=== PATIENT | female | born 1995 | race Hispanic/Latino ===

== ENCOUNTER 2018-09-03 06:56 | Emergency (ER) | payer OTHER ==
[2018-09-03] MEDS ORDERED: MAGNE/ALUM HYDROXD 30 ML UCUP ONE (07:24)
[2018-09-03] MEDS ORDERED: ONDANSETRON 4 MG/2 ML VIAL ONE (07:24)
[2018-09-03] MEDS ORDERED: NA CHLORIDE 0.9% 1,000 ML ONE (07:24)
[2018-09-03] MEDS ORDERED: LIDOCAINE VISCOUS 2% SOLN 15 ML UDC ONE (07:25)
[2018-09-03] MEDS ORDERED: FAMOTIDINE 20 MG/2 ML VIAL IV ONE (07:25)
[2018-09-03 07:36] LABS: Absolute Lymphocytes (CBC) 1.7 K/uL (0.7-4.9); Absolute Monocytes 1.2 K/uL (0.1-1.3); Absolute Neutrophil 13.2 K/uL (1.8-8.0); Basophils % 0.1 % (0-1.3); Eosinophils % 0.2 % (0-4.4); Hematocrit 38.1 % (36.0-45.0); Lymphocytes % 10.3 % (15.3-44.8); MPV 8.1 fL (7.6-11.3); Monocytes % 7.4 % (3.3-12.3); RBC Red Blood Cell Count 4.99 M/uL (3.86-4.86)
[2018-09-03 07:53] LABS: ALT/SGPT 17 U/L (12-78); AST/SGOT 11 U/L (15-37); Albumin 3.6 g/dL (3.4-5.0); Alkaline Phosphatase 45 U/L (45-117); BUN Blood Urea Nitrogen 6 mg/dL (7-18); Bicarbonate 21 mmol/L (21-32); Bilirubin Direct < 0.1 mg/dL (0-0.2); Bilirubin Total 0.2 mg/dL (0.2-1.0); Glucose Level 103 mg/dL (74-106); Lipase 140 U/L (73-393); Potassium 3.8 mmol/L (3.5-5.1); Sodium Level 139 mmol/L (136-145)
[2018-09-03 08:32] LABS: Urine Bacteria 20-50 /HPF (<20); Urine Culture Reflex Order NOT NEEDED; Urine RBC <5 /HPF (NONE SEEN)
[2018-09-03 08:37] LABS: Urine Blood NEGATIVE (NEG); Urine Glucose NEGATIVE (NEG); Urine Protein 2+ (NEG); Urine Specific Gravity 1.025 (1.005-1.030); Urine pH 8.5 (5.0-7.0)
--- NOTE | 2018-09-03 08:47 | RAD REPORT ---
EXAM DESCRIPTION: US - OB Limited - 09/03/2018 7:42 am CLINICAL HISTORY: with abdominal pain COMPARISON: None. FINDINGS: The uterus measures 11 x 8 x 7 centimeters. A gestational sac is present within the endom etrium. Within this is a pole with a crown-rump length 4.4 centimeters. Cardiac activity 162 b eats per minute Ovaries are normal in size and echotexture. 2 centimeter left ovarian cyst. An adnexal mass is not no riccardo. No significant free fluid is seen. IMPRESSION: Single live intrauterine with an estimated gestational age 11 weeks 1 day ANA MARIA 03/24/2019
--- NOTE | 2018-09-03 08:57 | EDPHYS ---
Physician Documentation [facility] Name: Polina Beasley Age: 23 yrs Sex: Female : 1995 Arrival Date: 09/03/2018 Time: 06:58 Bed 19 Private MD: ED Physician Guillermo Mcdonald HPI: 09/03 07:13 This 23 yrs old Female presents to ER via Ambulatory with complaints of rn Abdominal Pain - 11 Weeks Preg, Vomiting. 07:13 The patient presents to the emergency department with nausea, vomiting, diarrhea, rn abdominal pain, of the epigastric area and suprapubic area. Onset: The symptoms/episode began/occurred this morning. Possible causes: unknown. The symptoms are aggravated by nothing. The symptoms are alleviated by nothing. Severity of symptoms: At their worst the symptoms were moderate in the emergency department the symptoms are unchanged. The patient has not experienced similar symptoms in the past. The patient has not recently seen a physician. Reports has been having very frequent vomiting during this , has prescribed medication, phenergan, by her OB, reports this morning onset of upper abd pain, assoc with mild diarrhea today, intermittent pain, no fever, no hematemesis. Also has history of GERD.. Historical: - Allergies: 07:10 No Known Allergies; ss - Home Meds: 07:10 None [Active]; ss - PMHx: 07:10 gestational diabetes; GERD; ss - PSHx: 07:10 None; ss - Immunization history:: Adult Immunizations up to date. - Social history:: Smoking status: Patient/guardian denies using tobacco. - Ebola Screening: : Patient denies exposure to infectious person Patient denies travel to an Ebola-affected area in the 21 days before illness onset. - Family history:: not pertinent. - Hospitalizations: : No recent hospitalization is reported. ROS: 07:13 Constitutional: Negative for fever, chills, and weight loss, Eyes: Negative for injury, rn pain, redness, and discharge, Neck: Negative for injury, pain, and swelling, Cardiovascular: Negative for chest pain, palpitations, and edema, Respiratory: Negative for shortness of breath, cough, wheezing, and pleuritic chest pain, Abdomen/GI: + abd pain/nausea/vomiting/diarrhea : Negative for injury, bleeding, discharge, and swelling, MS/Extremity: Negative for injury and deformity, Skin: Negative for injury, rash, and discoloration, Neuro: Negative for headache, weakness, numbness, tingling, and seizure. Exam: 07:13 Constitutional: This is a well developed, well nourished patient who is awake, alert, rn tearful and hyperventilating Head/Face: Normocephalic, atraumatic. Eyes: Pupils equal round and reactive to light, extra-ocular motions intact. Lids and lashes normal. Conjunctiva and sclera are non-icteric and not injected. Cornea within normal limits. Periorbital areas with no swelling, redness, or edema. ENT: dry MM Abdomen/GI: soft, + mild tenderness epigastric and suprapubic regions, no rebound, no peritoneal signs. Neg armas. Skin: Warm, dry MS/ Extremity: Pulses equal, no cyanosis. Neurovascular intact. Full, normal range of motion. Equal circumference. Neuro: Awake and alert, GCS 15, oriented to person, place, time, and situation Vital Signs: 07:10 BP 108 / 75; Pulse 122; Resp 26; Temp 97.7(O); Pulse Ox 100% on R/A; Weight 67.13 kg; ss Height 5 ft. 6 in. (167.64 cm); Pain 10/10; 08:55 BP 101 / 68; Pulse 95; Resp 14 S; Pulse Ox 99% on R/A; Pain 4/10; jl7 07:10 Body Mass Index 23.89 (67.13 kg, 167.64 cm) ss MDM: 07:02 Patient medically screened. kb 08:10 Differential diagnosis: Nonspecific abd pain, gastritis, cholecystitis, pancreatitis, rn viral gastroenteritis, gastroenteritis. Data reviewed: vital signs, nurses notes, lab test result(s), radiologic studies, ultrasound. Response to treatment: the patient's symptoms have markedly improved after treatment. 08:56 Counseling: I had a detailed discussion with the patient and/or guardian regarding: the rn historical points, exam findings, and any diagnostic results supporting the discharge/admit diagnosis, lab results, radiology results, the need for outpatient follow up, to return to the emergency department if symptoms worsen or persist or if there are any questions or concerns that arise at home. Special discussion: I discussed with the patient/guardian in detail that at this point there is no indication for admission to the hospital. It is understood, however, that if the symptoms persist or worsen the patient needs to return immediately for re-evaluation. Based on the history and exam findings, there is no indication for further emergent testing or inpatient evaluation. I discussed with the patient/guardian the need to see the OB Gyne specialist for further evaluation of the symptoms. ED course: Recommended diet modification and OB f/u. . 09/03 07:07 Order name: Basic Metabolic Panel; Complete Time: 07:59 rn 09/03 07:07 Order name: CBC with Diff; Complete Time: 07:49 rn 09/03 07:07 Order name: Hepatic Function; Complete Time: 07:59 rn 09/03 07:07 Order name: Lipase; Complete Time: 07:59 rn 09/03 07:09 Order name: Urine Microscopic Only; Complete Time: 08:47 rn 09/03 07:24 Order name: HCG-Quantitative; Complete Time: 08:47 rn 09/03 07:07 Order name: US OB Limited; Complete Time: 08:58 rn 09/03 07:07 Order name: US Abdomen Limited rn 09/03 08:13 Order name: Urine Dipstick--Ancillary (enter results); Complete Time: 08:47 bd 09/03 08:13 Order name: Urine --Ancillary (enter results); Complete Time: 08:47 bd 09/03 07:07 Order name: IV Saline Lock; Complete Time: 07:26 rn 09/03 07:07 Order name: Labs collected and sent; Complete Time: 07:26 rn 09/03 07:09 Order name: Urine Dipstick-Ancillary (obtain specimen); Complete Time: 08:02 rn Administered Medications: 07:20 Drug: GI Cocktail without - (Maalox Suspension 30 ml, Lidocaine Liquid 2 % 15 jl7 ml) Route: PO; 08:08 Follow up: Response: No adverse reaction; Pain is decreased jl7 07:22 Drug: NS 0.9% 1000 ml Route: IV; Rate: 1000 ml; Site: right antecubital; jl7 08:30 Follow up: IV Status: Completed infusion; IV Intake: 1000ml jl7 07:23 Drug: Pepcid 20 mg Route: IVP; Site: right antecubital; jl7 08:08 Follow up: Response: No adverse reaction; Pain is decreased jl7 07:25 Drug: Zofran 4 mg Route: IVP; Site: right antecubital; jl7 08:08 Follow up: Response: No adverse reaction; Nausea is decreased jl7 Disposition: 09/03/18 08:56 Discharged to Home. Impression: Gastritis, unspecified, Urinary tract infection, site not specified. - Condition is Stable. - Discharge Instructions: Gastritis, Adult, and Urinary Tract Infection. - Prescriptions for Macrobid 100 mg Oral Capsule - take 1 capsule by ORAL route every 12 hours for 7 days; 14 capsule. - Medication Reconciliation Form, Thank You Letter, Antibiotic Education, Prescription Opioid Use form. - Follow up: Private Physician; When: As needed; Reason: Recheck today's complaints, Re-evaluation by your physician. - Problem is new. - Symptoms have improved. Signatures: Dispatcher [employer] EDMS Shivani Pedersen, [employer] SAW OPERATOR-C SEMICOND[employer]CTOR WAFERS SAW OPERATOR-Ckb Guillermo Mcdonald MD MD rn Smirch, Shelby, RN RN ss Leal, Jahala, RN RN jl7 Corrections: (The following items were deleted from the chart) 07:14 07:13 Reports has been having very frequent vomiting during this , has rn prescribed medication, phenergan, by her OB, reports this morning onset of upper abd pain, assoc with mild diarrhea today, intermittent pain, no fever, no hematemesis. . rn 09:04 08:56 09/03/2018 08:56 Discharged to Home. Impression: Gastritis, unspecified; Urinary jl7 tract infection, site not specified. Condition is Stable. Forms are Medication Reconciliation Form, Thank You Letter, Antibiotic Education, Prescription Opioid Use. Follow up: Private Physician; When: As needed; Reason: Recheck today's complaints, Re-evaluation by your physician. Problem is new. Symptoms have improved. rn
--- NOTE | 2018-09-03 08:57 | ER ---
Nurse's Notes [facility] Name: Polina Beasley Age: 23 yrs Sex: Female : 1995 Arrival Date: 09/03/2018 Time: 06:58 Bed 19 Private MD: Diagnosis: Gastritis, unspecified;Urinary tract infection, site not specified Presentation: 09/03 07:00 Presenting complaint: Patient states: epigastric discomfort with nausea and vomiting ss that began at 0300 this morning. Denies fever, diarrhea and/or vaginal bleeding. Pt states that she is 11 weeks . Transition of care: patient was not received from another setting of care. Onset of symptoms was September 03, 2018. Risk Assessment: Do you want to hurt yourself or someone else? Patient reports no desire to harm self or others. Initial Sepsis Screen: Does the patient meet any 2 criteria? RR > 20 per min. HR > 90 bpm. Does the patient have a suspected source of infection? No. Patient's initial sepsis screen is negative. Care prior to arrival: None. 07:00 Method Of Arrival: Ambulatory ss 07:00 Acuity: LARRY 2 ss Historical: - Allergies: 07:10 No Known Allergies; ss - Home Meds: 07:10 None [Active]; ss - PMHx: 07:10 gestational diabetes; GERD; ss - PSHx: 07:10 None; ss - Immunization history:: Adult Immunizations up to date. - Social history:: Smoking status: Patient/guardian denies using tobacco. - Ebola Screening: : Patient denies exposure to infectious person Patient denies travel to an Ebola-affected area in the 21 days before illness onset. - Family history:: not pertinent. - Hospitalizations: : No recent hospitalization is reported. Screenin:16 Abuse screen: Denies threats or abuse. Denies injuries from another. Nutritional ss screening: No deficits noted. Tuberculosis screening: No symptoms or risk factors identified. Never had TB. Fall Risk None identified. Assessment: 07:28 General: Appears in no apparent distress. uncomfortable, Behavior is cooperative, jl7 anxious. Pain: Complains of pain in epigastric area Pain does not radiate. Pain currently is 10 out of 10 on a pain scale. Quality of pain is described as sharp, Pain began 4 hours ago. Is intermittent. Neuro: Level of Consciousness is awake, alert, obeys commands, Oriented to person, place, time, situation. Cardiovascular: Patient's skin is warm and dry. Respiratory: Airway is patent Respiratory effort is even, unlabored, Respiratory pattern is regular, symmetrical. GI: Bowel sounds present X 4 quads. Abd is soft Abdomen is tender to palpation. : No signs and/or symptoms were reported regarding the genitourinary system. EENT: No signs and/or symptoms were reported regarding the EENT system. Derm: Skin is pink, warm \T\ dry. Musculoskeletal: No signs and/or symptoms reported regarding the musculoskeletal system. 08:30 Reassessment: Patient appears in no apparent distress at this time. Patient and/or jl7 family updated on plan of care and expected duration. Pain level reassessed. Patient is alert, oriented x 3, equal unlabored respirations, skin warm/dry/pink. Patient states feeling better. Patient states symptoms have improved. Vital Signs: 07:10 BP 108 / 75; Pulse 122; Resp 26; Temp 97.7(O); Pulse Ox 100% on R/A; Weight 67.13 kg; ss Height 5 ft. 6 in. (167.64 cm); Pain 10/10; 08:55 BP 101 / 68; Pulse 95; Resp 14 S; Pulse Ox 99% on R/A; Pain 4/10; jl7 07:10 Body Mass Index 23.89 (67.13 kg, 167.64 cm) ED Course: 06:58 Patient arrived in ED. as 07:02 Shivani Pedersen [facility]-C [facility] kb 07:02 Elliott Whitt MD is Attending Physician. kb 07:06 Attending Physician role handed off by Elliott Whitt MD rn 07:06 Guillermo Mcdonald MD is Attending Physician. rn 07:08 Alen Gunter RN is Primary Nurse. jl7 07:09 Triage completed. ss 07:10 Arm band placed on right wrist. ss 07:16 Patient has correct armband on for positive identification. Bed in low position. Call ss light in reach. 07:16 Patient maintains SpO2 saturation greater than 95% on room air. ss 07:28 Initial lab(s) drawn, by me, sent to lab. Inserted saline lock: 20 gauge in right jl7 antecubital area, using aseptic technique. Blood collected. 07:43 US OB Limited In Process Unspecified. EDMS 07:43 US Abdomen Limited In Process Unspecified. EDMS 07:45 Ultrasound completed. Patient tolerated well. aa4 09:03 No provider procedures requiring assistance completed. IV discontinued, intact, jl7 bleeding controlled, No redness/swelling at site. Pressure dressing applied. Administered Medications: 07:20 Drug: GI Cocktail without - (Maalox Suspension 30 ml, Lidocaine Liquid 2 % 15 jl7 ml) Route: PO; 08:08 Follow up: Response: No adverse reaction; Pain is decreased jl7 07:22 Drug: NS 0.9% 1000 ml Route: IV; Rate: 1000 ml; Site: right antecubital; jl7 08:30 Follow up: IV Status: Completed infusion; IV Intake: 1000ml jl7 07:23 Drug: Pepcid 20 mg Route: IVP; Site: right antecubital; jl7 08:08 Follow up: Response: No adverse reaction; Pain is decreased jl7 07:25 Drug: Zofran 4 mg Route: IVP; Site: right antecubital; jl7 08:08 Follow up: Response: No adverse reaction; Nausea is decreased jl7 Intake: 08:30 IV: 1000ml; Total: 1000ml. jl7 Outcome: 08:56 Discharge ordered by . rn 09:03 Discharged to home ambulatory. jl7 09:03 Condition: stable 09:03 Discharge instructions given to patient, family, Instructed on discharge instructions, follow up and referral plans. medication usage, Demonstrated understanding of instructions, follow-up care, medications, Prescriptions given X 1. 09:04 Patient left the ED. jl7 Signatures: Dispatcher [employer] EDMN Shivani Pedersen, BAL POPE-Patricai Rice Amanda aa4 Guillermo Mcdonald MD MD rn Smirch, Shelby, RN RN ss Leal, Jahala, RN RN jl7
--- NOTE | 2018-09-03 09:02 | RAD REPORT ---
EXAM DESCRIPTION: US - Abdomen Exam Limited - 09/03/2018 7:42 am CLINICAL HISTORY: Abdominal pain. COMPARISON: None. FINDINGS: The gallbladder wall is not thickened. A gallstone is not seen. The biliary tree is normal caliber. IMPRESSION: Unremarkable gallbladder ultrasound.
== END 2018-09-03 09:04 | disposition home or self-care (01) ==
LOC: ER 06:56
DX: O26.891 Other specified pregnancy related conditions, first trimester (principal); K29.70 Gastritis, unspecified, without bleeding; O23.41 Unspecified infection of urinary tract in pregnancy, first trimester; K21.9 Gastro-esophageal reflux disease without esophagitis; O24.419 Gestational diabetes mellitus in pregnancy, unspecified control; Z3A.11 11 weeks gestation of pregnancy
CPT/HCPCS: 36415; 76705; 76815; 80048; 80076; 81003; 81015; 81025; 83690; 84702; 85025; 96361; 96374; 96375; 99284; J2405; J7030

== ENCOUNTER 2018-11-15 03:17 | Emergency (ER) | payer OTHER ==
--- OUTSIDE RECORDS SUMMARY | 2018-11-15 03:19 | XMS REPORT ---
:1995 [facility] [address] [place] [address] Care Team Providers Name Role Phone Unavailable Unavailable Unavailable Problems This patient has no known problems. Allergies, Adverse Reactions, Alerts This patient has no known allergies or adverse reactions. Medications This patient has no known medications.
[2018-11-15 04:11] LABS: Absolute Lymphocytes (CBC) 2.2 K/uL (0.7-4.9); Absolute Monocytes 0.9 K/uL (0.1-1.3); Absolute Neutrophil 7.2 K/uL (1.8-8.0); Basophils % 0.7 % (0-1.3); Eosinophils % 0.5 % (0-4.4); Hematocrit 29.9 % (36.0-45.0); Lymphocytes % 21.1 % (15.3-44.8); MPV 8.2 fL (7.6-11.3); Monocytes % 8.8 % (3.3-12.3); RBC Red Blood Cell Count 3.86 M/uL (3.86-4.86)
[2018-11-15 04:17] LABS: Protime INR 0.91
[2018-11-15] MEDS ORDERED: ACETAMINOPHEN 325 MG TABLET ONE (04:24)
[2018-11-15] MEDS ORDERED: NA CHLORIDE 0.9% 1,000 ML ONE ×2 (04:24→06:38)
[2018-11-15 04:26] LABS: Urine Blood NEGATIVE (NEG); Urine Glucose NEGATIVE (NEG); Urine Protein NEGATIVE (NEG); Urine Specific Gravity 1.025 (1.005-1.030)
[2018-11-15 04:45] LABS: ALT/SGPT 37 U/L (12-78); AST/SGOT 22 U/L (15-37); Albumin 2.8 g/dL (3.4-5.0); Alkaline Phosphatase 52 U/L (45-117); BUN Blood Urea Nitrogen 6 mg/dL (7-18); Bicarbonate 21 mmol/L (21-32); Bilirubin Direct < 0.1 mg/dL (0-0.2); Bilirubin Total 0.1 mg/dL (0.2-1.0); Glucose Level 98 mg/dL (74-106); HCG, Quantitative 16608 mIU/mL (1-3); Lipase 266 U/L (73-393); Magnesium 1.8 mg/dL (1.8-2.4); NT PRO-BNP 18 pg/mL (<125); Potassium 3.6 mmol/L (3.5-5.1); Protein, Total 6.8 g/dL (6.4-8.2); Sodium Level 140 mmol/L (136-145); Troponin (Emerg Dept Use Only) < 0.02 ng/mL (0.0-0.045)
[2018-11-15 05:03] LABS: Arterial Blood Carboxyhemoglob 1.1 % (0-1.5); Blood Gas Oxyhemoglobin 96.1 % (94-97); Blood O2 Saturation 97.8 % (92-98.5)
--- NOTE | 2018-11-15 06:52 | EDPHYS ---
Physician Documentation [facility] Name: Polina Beasley Age: 23 yrs Sex: Female : 1995 Arrival Date: 11/15/2018 Time: 03:18 Bed 8 Private MD: ED Physician Elliott Whitt HPI: 11/15 04:46 This 23 yrs old Female presents to ER via Wheelchair with complaints of tulio Shortness Of Breath, Dizziness, 21 wks . 04:46 The patient has shortness of breath at rest, with light activity. Onset: The tulio symptoms/episode began/occurred just prior to arrival. Duration: The symptoms are continuous, but are steadily getting better. The patient's shortness of breath has no apparent modifying factors. Associated signs and symptoms: Pertinent positives: chest pain, dizziness. Severity of symptoms: At their worst the symptoms were mild. The patient has not experienced similar symptoms in the past. 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 - Social history:: Smoking status: Patient/guardian denies using tobacco. - Ebola Screening: : Patient negative for fever greater than or equal to 101.5 degrees Fahrenheit, and additional compatible Ebola Virus Disease symptoms Patient denies exposure to infectious person Patient denies travel to an Ebola-affected area in the 21 days before illness onset No symptoms or risks identified at this time. - Family history:: not pertinent. ROS: 04:46 Constitutional: Negative for fever, chills, and weight loss, Eyes: Negative for injury, tulio pain, redness, and discharge, ENT: Negative for injury, pain, and discharge, Neck: Negative for injury, pain, and swelling, Abdomen/GI: Negative for abdominal pain, nausea, vomiting, diarrhea, and constipation, Back: Negative for injury and pain, : Negative for injury, bleeding, discharge, and swelling, MS/Extremity: Negative for injury and deformity, Skin: Negative for injury, rash, and discoloration, Neuro: Negative for headache, weakness, numbness, tingling, and seizure, Psych: Negative for depression, anxiety, suicide ideation, homicidal ideation, and hallucinations, Allergy/Immunology: Negative for hives, rash, and allergies, Endocrine: Negative for neck swelling, polydipsia, polyuria, polyphagia, and marked weight changes, Hematologic/Lymphatic: Negative for swollen nodes, abnormal bleeding, and unusual bruising. 04:46 Cardiovascular: Positive for chest pain. 04:46 Respiratory: Positive for shortness of breath. 04:46 Abdomen/GI: Positive for abdominal distension. Exam: 04:48 Constitutional: This is a well developed, well nourished patient who is awake, alert, tulio and in no acute distress. Head/Face: Normocephalic, atraumatic. Eyes: Pupils equal round and reactive to light, extra-ocular motions intact. Lids and lashes normal. Conjunctiva and sclera are non-icteric and not injected. Cornea within normal limits. Periorbital areas with no swelling, redness, or edema. ENT: Nares patent. No nasal discharge, no septal abnormalities noted. Tympanic membranes are normal and external auditory canals are clear. Oropharynx with no redness, swelling, or masses, exudates, or evidence of obstruction, uvula midline. Mucous membranes moist. Neck: Trachea midline, no thyromegaly or masses palpated, and no cervical lymphadenopathy. Supple, full range of motion without nuchal rigidity, or vertebral point tenderness. No Meningismus. Chest/axilla: Normal chest wall appearance and motion. Nontender with no deformity. No lesions are appreciated. Cardiovascular: Regular rate and rhythm with a normal S1 and S2. No gallops, murmurs, or rubs. Normal PMI, no JVD. No pulse deficits. Respiratory: Lungs have equal breath sounds bilaterally, clear to auscultation and percussion. No rales, rhonchi or wheezes noted. No increased work of breathing, no retractions or nasal flaring. Back: No spinal tenderness. No costovertebral tenderness. Full range of motion. Skin: Warm, dry with normal turgor. Normal color with no rashes, no lesions, and no evidence of cellulitis. MS/ Extremity: Pulses equal, no cyanosis. Neurovascular intact. Full, normal range of motion. Neuro: Awake and alert, GCS 15, oriented to person, place, time, and situation. Cranial nerves II-XII grossly intact. Motor strength 5/5 in all extremities. Sensory grossly intact. Cerebellar exam normal. Normal gait. Psych: Awake, alert, with orientation to person, place and time. Behavior, mood, and affect are within normal limits. 04:48 Abdomen/GI: Inspection: gravid appearance, is noted, Bowel sounds: normal, Palpation: nontender, Liver: no appreciated palpable abnormalities, Hernia: not appreciated. 04:50 Musculoskeletal/extremity: DVT Exam: No signs of deep vein thrombosis. no pain, no tulio swelling, no tenderness, negative Homans' sign noted on exam, no appreciated bluish discoloration, no erythema, no increased warmth. Vital Signs: 03:35 BP 107 / 75; Pulse 108; Resp 21; Temp 98.1(O); Pulse Ox 100% on R/A; Weight 69.85 kg; ed1 Height 5 ft. 6 in. (167.64 cm); Pain 0/10; 04:40 BP 116 / 79; Pulse 97; Resp 20; Temp 97.3(O); Pulse Ox 100% on R/A; Pain 0/10; ed1 06:23 BP 117 / 89; Pulse 112; Resp 21; Pulse Ox 99% on R/A; Pain 0/10; ed1 03:35 Body Mass Index 24.86 (69.85 kg, 167.64 cm) ed1 MDM: 03:32 Patient medically screened. [facility] 04:49 Data reviewed: vital signs, nurses notes, lab test result(s), EKG, radiologic studies, [facility] CT scan, plain films. 11/15 03:35 Order name: Basic Metabolic Panel [facility] 11/15 03:35 Order name: CBC with Diff 11/15 03:35 Order name: LFT's 11/15 03:35 Order name: Magnesium [facility] 11/15 03:35 Order name: NT PRO-BNP 11/15 03:35 Order name: PT-INR [facility] 11/15 03:35 Order name: Troponin (emerg Dept Use Only) 11/15 03:35 Order name: Lipase [facility] 11/15 03:35 Order name: Quantitative Hcg [facility] 11/15 03:35 Order name: Urine Culture [facility] 11/15 03:35 Order name: Abo/rh Typing; Complete Time: 04:44 [facility] 11/15 03:35 Order name: D-Dimer; Complete Time: 04:44 [facility] 11/15 03:35 Order name: Basic Metabolic Panel; Complete Time: 04:46 [facility] 11/15 03:35 Order name: CBC with Automated Diff; Complete Time: 04:44 [facility] 11/15 03:35 Order name: XRAY Chest (1 view) [facility] 11/15 03:36 Order name: Liver (Hepatic) Function; Complete Time: 04:46 [facility] 11/15 03:36 Order name: Magnesium; Complete Time: 04:46 [facility] 11/15 03:36 Order name: NT PRO-BNP; Complete Time: 04:46 [facility] 11/15 03:36 Order name: Protime (+INR); Complete Time: 04:44 [facility] 11/15 03:36 Order name: Troponin (Emerg Dept Use Only); Complete Time: 04:46 [facility] 11/15 03:36 Order name: Lipase; Complete Time: 04:46 [facility] 11/15 03:36 Order name: HCG, Quantitative; Complete Time: 04:46 [facility] 11/15 03:46 Order name: Urine Dipstick--Ancillary (enter results); Complete Time: 04:44 ed 11/15 03:46 Order name: Urine --Ancillary (enter results); Complete Time: 04:44 ed 11/15 04:46 Order name: ABG; Complete Time: 05:38 [facility] 11/15 04:46 Order name: CT Chest For PE Angio [facility] 11/15 05:57 Order name: US OB Limited 11/15 03:35 Order name: EKG; Complete Time: 03:37 [facility] 11/15 03:35 Order name: Cardiac monitoring; Complete Time: 04:15 [facility] 11/15 03:35 Order name: EKG - Nurse/Tech; Complete Time: 04:15 [facility] 11/15 03:35 Order name: IV Saline Lock; Complete Time: 04:16 [facility] 11/15 03:35 Order name: Labs collected and sent; Complete Time: 04:16 [facility] 11/15 03:35 Order name: O2 Per Protocol; Complete Time: 03:45 [facility] 11/15 03:35 Order name: O2 Sat Monitoring; Complete Time: 03:45 [facility] 11/15 03:35 Order name: FHT's; Complete Time: 04:15 [facility] 11/15 03:35 Order name: Urine Dipstick-Ancillary (obtain specimen); Complete Time: 03:45 [facility] Administered Medications: 04:15 Drug: NS 0.9% 1000 ml Route: IV; Rate: 1 bolus; Site: right forearm; ed1 06:31 Drug: NS 0.9% 500 ml Route: IV; Rate: bolus; Site: right forearm; ed1 06:57 Follow up: IV Status: Completed infusion; IV Intake: 500ml ed1 06:57 Not Given (Physician Discretion): NS 0.9% 1000 ml IV at 125 ml/hr continuous ed1 Disposition: 11/15/18 06:51 Discharged to Home. Impression: Chest pain on breathing, Other chest pain, Dyspnea, related conditions, unspecified, second trimester, Anemia, unspecified. - Condition is Stable. - Discharge Instructions: Abdominal Pain During , Nonspecific Chest Pain, Chest Wall Pain, Shortness of Breath, Shortness of Breath, Vqrd-[id number], Nonspecific Chest Pain, Zmkw-uk-Sjsx, Second Trimester of , Qkmr-tg-Tiib. - Prescriptions for Vitamin 27- 0.8 mg Oral Tablet - take 1 tablet by ORAL route once daily; 30 tablet. - Medication Reconciliation Form, Thank You Letter, Antibiotic Education, Prescription Opioid Use, Family Work Release form. - Follow up: Private Physician; When: 2 - 3 days; Reason: Recheck today's complaints, Continuance of care, Re-evaluation by your physician. - Problem is new. - Symptoms have improved. Signatures: Dispatcher [employer] EDAZ Elliott Whitt MD MD cha Riggs, Erika, RN RN ed1 Sherry Otero RN RN hb Corrections: (The following items were deleted from the chart) 07:57 06:51 11/15/2018 06:51 Discharged to Home. Impression: Chest pain on breathing; Other hb chest pain; Dyspnea; related conditions, unspecified, second trimester; Anemia, unspecified. Condition is Stable. Discharge Instructions: Abdominal Pain During , Nonspecific Chest Pain, Chest Wall Pain, Shortness of Breath, Shortness of Breath, Sgnc-yg-Muzr, Nonspecific Chest Pain, Pynq-lt-Uxch. Forms are Medication Reconciliation Form, Thank You Letter, Antibiotic Education, Prescription Opioid Use. Follow up: Private Physician; When: 2 - 3 days; Reason: Recheck today's complaints, Continuance of care, Re-evaluation by your physician. Problem is new. Symptoms have improved. tulio
--- NOTE | 2018-11-15 06:52 | ER ---
Nurse's Notes [facility] Name: Polina Beasley Age: 23 yrs Sex: Female : 1995 Arrival Date: 11/15/2018 Time: 03:18 Bed 8 Private MD: Diagnosis: Chest pain on breathing;Other chest pain;Dyspnea; related conditions, unspecified, second trimester;Anemia, unspecified Presentation: 11/15 03:33 Presenting complaint: Patient states: I took a shower and when I got out I got very ed1 dizzy and lightheaded. I had numbness of my hands and feet. Transition of care: patient was not received from another setting of care. Onset of symptoms was November 15, 2018. Risk Assessment: Do you want to hurt yourself or someone else? Patient reports no desire to harm self or others. Initial Sepsis Screen: Does the patient meet any 2 criteria? No. Patient's initial sepsis screen is negative. Does the patient have a suspected source of infection? No. Patient's initial sepsis screen is negative. Care prior to arrival: None. 03:33 Method Of Arrival: Wheelchair ed1 03:33 Acuity: LARRY 3 ed1 Triage Assessment: 03:35 General: Appears in no apparent distress. Behavior is calm, cooperative. Pain: Denies ed1 pain. EENT: Oral mucosa is moist. Neuro: Level of Consciousness is awake, alert, obeys commands, Oriented to person, place, time, situation, [employer] L[employer] Grader are equal bilaterally Moves all extremities. Full function Gait is steady, Speech is normal, Facial symmetry appears normal, Pupils are PERRLA, Numbness in right hand, left hand, right foot and left foot Reports blurred vision dizziness. Cardiovascular: Denies chest pain, Heart tones S1 S2 present. Respiratory: Reports shortness of breath at rest Airway is patent Respiratory effort is even, unlabored, Respiratory pattern is regular, symmetrical, Breath sounds are clear bilaterally. Onset: The symptoms/episode began/occurred just prior to arrival, the patient has mild shortness of breath. GI: Bowel sounds present X 4 quads. Patient currently denies diarrhea, nausea, vomiting. : Denies burning with urination. Derm: Skin is intact, is healthy with good turgor, Skin is dry, Skin is normal, Skin temperature is warm. Musculoskeletal: Circulation, motion, and sensation intact. Range of motion: intact in all extremities. 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 - Social history:: Smoking status: Patient/guardian denies using tobacco. - Ebola Screening: : Patient negative for fever greater than or equal to 101.5 degrees Fahrenheit, and additional compatible Ebola Virus Disease symptoms Patient denies exposure to infectious person Patient denies travel to an Ebola-affected area in the 21 days before illness onset No symptoms or risks identified at this time. - Family history:: not pertinent. Screenin:40 Abuse screen: Denies threats or abuse. Denies injuries from another. Nutritional ed1 screening: No deficits noted. Tuberculosis screening: No symptoms or risk factors identified. Fall Risk None identified. Assessment: 03:39 General: See triage assessment. Cardiovascular: Rhythm is regular. ed1 04:40 Reassessment: Patient appears in no apparent distress at this time. Patient and/or ed1 family updated on plan of care and expected duration. Pain level reassessed. Patient is alert, oriented x 3, equal unlabored respirations, skin warm/dry/pink. Patient denies pain at this time. Patient states feeling better. Patient states symptoms have improved. Respiratory: Airway is patent Respiratory effort is even, unlabored, Respiratory pattern is regular, symmetrical, Breath sounds are clear bilaterally. 06:23 Reassessment: Patient appears in no apparent distress at this time. No changes from ed1 previously documented assessment. Patient and/or family updated on plan of care and expected duration. Pain level reassessed. Patient is alert, oriented x 3, equal unlabored respirations, skin warm/dry/pink. Patient denies pain at this time. Patient states feeling better. Patient states symptoms have improved. 07:15 Reassessment: Patient appears in no apparent distress at this time. Patient and/or hb family updated on plan of care and expected duration. Pain level reassessed. Patient is alert, oriented x 3, equal unlabored respirations, skin warm/dry/pink. Vital Signs: 03:35 BP 107 / 75; Pulse 108; Resp 21; Temp 98.1(O); Pulse Ox 100% on R/A; Weight 69.85 kg; ed1 Height 5 ft. 6 in. (167.64 cm); Pain 0/10; 04:40 BP 116 / 79; Pulse 97; Resp 20; Temp 97.3(O); Pulse Ox 100% on R/A; Pain 0/10; ed1 06:23 BP 117 / 89; Pulse 112; Resp 21; Pulse Ox 99% on R/A; Pain 0/10; ed1 03:35 Body Mass Index 24.86 (69.85 kg, 167.64 cm) ed1 Vitals: 04:14 Heart Tones 162. ed1 ED Course: 03:18 Patient arrived in ED. am2 03:32 Elliott Whitt MD is Attending Physician. tulio 03:34 Triage completed. ed1 03:35 Arm band placed on. ed1 03:40 Patient has correct armband on for positive identification. Bed in low position. Call ed1 light in reach. Adult w/ patient. Pulse ox on. NIBP on. 03:54 X-ray completed. Portable x-ray completed in exam room. Patient tolerated procedure kw well. 03:55 XRAY Chest (1 view) In Process Unspecified. EDMS 04:14 Lesli De La Cruz RN is Primary Nurse. ed1 04:14 Initial lab(s) drawn, by ky, sent to lab. Urine collected: clean catch specimen, clear, ed1 EKG done, by ED staff, reviewed by Elliott Whitt MD. Inserted saline lock: 20 gauge in right forearm, using aseptic technique. Blood collected. 04:24 Notified ED physician of a critical lab result(s). D-Dimer 1003. Dr Whitt notified. bb 05:53 CT completed. Patient tolerated procedure well. Patient moved to CT via stretcher. Patient moved back from CT. 05:58 CT Chest For PE Angio In Process Unspecified. EDMS 06:23 Awaiting: Ultrasound. ed1 06:52 US OB Limited In Process Unspecified. EDMS 06:58 Primary Nurse role handed off by Lesli De La Cruz, RN ed1 07:00 Report received from RAMBO Ballesteros pending US results at this time PRIOR to discharge. tw2 07:07 Patito Garzon, RN is Primary Nurse. tw2 07:55 No provider procedures requiring assistance completed. IV discontinued, intact, hb bleeding controlled, No redness/swelling at site. Pressure dressing applied. Administered Medications: 04:15 Drug: NS 0.9% 1000 ml Route: IV; Rate: 1 bolus; Site: right forearm; ed1 06:31 Drug: NS 0.9% 500 ml Route: IV; Rate: bolus; Site: right forearm; ed1 06:57 Follow up: IV Status: Completed infusion; IV Intake: 500ml ed1 06:57 Not Given (Physician Discretion): NS 0.9% 1000 ml IV at 125 ml/hr continuous ed1 Intake: 06:57 IV: 500ml; Total: 500ml. ed1 Outcome: 06:51 Discharge ordered by . [facility] 07:55 Discharged to home ambulatory, with family. hb 07:55 Condition: stable 07:55 Discharge instructions given to patient, Instructed on discharge instructions, follow up and referral plans. medication usage, Demonstrated understanding of instructions, follow-up care, medications, Prescriptions given X 1. 07:57 Patient left the ED. hb Signatures: Dispatcher [employer] EDMS Elliott Whitt MD MD cha Hagler, Ervin eh Ballard, Brenda RN RAMBO Lesli De La Cruz RN RN ed1 Jenna Vyas Heather, RN RN Patito Garzon RN RN tw2 Keri Euceda [facility]
--- NOTE | 2018-11-15 08:20 | RAD REPORT ---
EXAM DESCRIPTION: RAD - Chest Single View - 11/15/2018 3:57 am CLINICAL HISTORY: DYSPNEA Chest pain. COMPARISON: Chest For Pe Angio dated 11/15/2018 FINDINGS: Portable technique limits examination quality. The lungs are grossly clear. The heart is normal in size. No displaced fractures. IMPRESSION: No acute intrathoracic process suspected.
--- NOTE | 2018-11-15 08:26 | EKG ---
Test Date: 2018-11-15 Test Time: 04:04:15 [employer] Vice President: THUY MEASUREMENT RESULTS: Intervals: Rate: 101 WA: 152 QRSD: 88 QT: 334 QTc: 433 [place]: P: 44 WA: 152 QRS: 41 T: 52 INTERPRETIVE STATEMENTS: Sinus tachycardia Possible Left atrial enlargement Borderline ECG No previous ECG available for comparison Electronically Signed On 11-15-18 08:25:34 CDT by Joshua Jauregui
--- NOTE | 2018-11-15 08:27 | RAD REPORT ---
EXAM DESCRIPTION: US - OB Limited - 11/15/2018 6:52 am CLINICAL HISTORY: ABD CRAMPING, COMPARISON: OB Limited dated 09/03/2018 FINDINGS: A limited examination was requested by referring clinician. A single cephalic presenting gestation is identified. Heart rate normal. The estimated gestational age (EGA) is 22 weeks 4 days with an ANA MARIA of03/17/2019. The placenta is posterior grade 1 but appears fairly close to the cervical internal os, measuring 9 m m away from the internal os.
--- NOTE | 2018-11-18 14:16 | RAD REPORT ---
EXAM DESCRIPTION: CTA of the chest per PE protocol with contrast. CLINICAL HISTORY: Chest pain; Dyspnea COMPARISON: None Available. TECHNIQUE: CTA of the chest obtained following the uncomplicated intravenous administration of iodin ated contrast. 3-D/MIP reformatted images of the chest available for evaluation. DLP: 290 mGycm FINDINGS: Chest: Pulmonary arteries: Contrast bolus is adequate.No filling defects identified in the pulmonary arterie s to suggest pulmonary embolus. Respiratory motion artifact. Suboptimal evaluation of the segmental a nd subsegmental pulmonary arterial branches. Thyroid: No abnormalities of the visualized thyroid. Great Vessels: Great vessels have normal anatomic configuration. Thoracic Aorta: No abnormalities of the thoracic aorta identified. Heart: No cardiomegaly, significant pericardial effusion, or coronary artery atherosclerosis Lymph Nodes: No enlarged mediastinal lymph nodes identified. Esophagus: No abnormalities of the esophagus identified. Other: No additional findings. Lungs: No airspace opacities identified. Pleura: No pleural effusion or pneumothorax. Trachea/Airways: No abnormalities of the visualized trachea or airways. Bones: No destructive osseous lesions. Upper Abdomen: Limited images of the upper abdomen demonstrate no definite abnormalities of visualize d portions of the liver and spleen. IMPRESSION: 1. No definite pulmonary embolus identified. Suboptimal evaluation of the segmental and subsegmental pulmonary arterial branches due to respiratory motion artifact. This exam was performed according to our departmental dose-optimization program, which includes autom ated exposure control, adjustment of the mA and/or kV according to patient size and/or use of iterati ve reconstruction technique. Electronically signed by: Zak Dela Cruz 11/15/2018 6:16 AM CDT Due to temporary technical issues with the PACS/Fluency reporting system, reports are being signed by the in house radiologist as a courtesy to ensure prompt reporting. The interpreting radiologist is f ully responsible for the content of the report.
== END 2018-11-15 07:57 | disposition home or self-care (01) ==
LOC: ER 03:17
DX: O99.012 Anemia complicating pregnancy, second trimester (principal); D64.9 Anemia, unspecified; O24.419 Gestational diabetes mellitus in pregnancy, unspecified control; R07.1 Chest pain on breathing; R07.89 Other chest pain; R06.00 Dyspnea, unspecified; Z3A.21 21 weeks gestation of pregnancy
CPT/HCPCS: 36415; 71045; 71275; 76815; 80048; 80076; 81003; 81025; 82805; 83690; 83735; 83880; 84484; 84702; 85025; 85379; 85610; 86900; 86901; 87086; 87088; 93005; J7030; Q9967

== ENCOUNTER 2019-06-11 22:03 | Emergency (ER) | payer OTHER, SELFPAY ==
--- OUTSIDE RECORDS SUMMARY | 2019-06-11 22:05 | XMS REPORT ---
:1995 Author Organization [facility] Address [address] [place] [address] Care Team Providers Name Role Phone Unavailable Unavailable Unavailable Problems This patient has no known problems. Allergies, Adverse Reactions, Alerts This patient has no known allergies or adverse reactions. Medications This patient has no known medications.
--- OUTSIDE RECORDS SUMMARY | 2019-06-11 22:05 | XMS REPORT | Summary of Care ---
:1995 Author Organization [facility] - [address] [address] Care Team Providers Name Role Phone Joe Hagen MD Consulting Physician Dianne Marshall [facility] Primary Care Provider Reason for Visit Reason Comments LAB Encounter Details Date Type Department Care Team Description 02/04/2019 Telephone [facility] Women's EliceoBreonna MD LAB Healthcare-[address] [place], [place] [id number] [place] [address] [place] [address] Allergies No Known Allergiesdocumented as of this encounter (statuses as of 02/04/2019) Medications Medication Sig Dispensed Refills Start Date End Date Status blood sugar diagnostic Use as directed 1 Box 10 08/13/2018 Active (FREESTYLE LITE STRIPS) stripIndications: Diet controlled gestational diabetes mellitus (GDM), antepartum lancets 17 gauge Use as directed 1 Each 10 08/13/2018 Active MiscIndications: Diet controlled gestational diabetes mellitus (GDM), antepartum vit Take 1 Packet by 30 Each 6 08/13/2018 Active 66-wrtb-zodrt-dha mouth daily. (SELECT-OB + DHA) 29 mg iron-1 mg -250 mg combo packIndications: Diet controlled gestational diabetes mellitus (GDM), antepartum Blood-Glucose Meter Use as directed 1 Kit 0 11/11/2018 Active (FREESTYLE LITE METER) KitIndications: Diet controlled gestational diabetes mellitus (GDM), antepartum ascorbic acid, vitamin Take 1 tablet by 90 tablet 3 12/26/2018 Active C, 500 mg mouth 3 (three) tabletIndications: times daily. Anemia of mother in , antepartum ferrous sulfate 325 mg Take 1 tablet by 90 tablet 5 12/26/2018 Active (65 mg iron) mouth 3 (three) tabletIndications: times daily with Anemia of mother in meals. , antepartum docusate 100 mg Take 1 capsule by 60 capsule 2 02/03/2019 Active capsuleIndications: mouth 2 (two) Diabetes mellitus times daily. complicating , antepartum documented as of this encounter (statuses as of 02/04/2019) Active Problems Problem Noted Date Anemia 01/30/2019 Diabetes mellitus complicating , antepartum 12/30/2018 Macrosomia 12/25/2018 Rh negative state in antepartum period 08/07/2018 Estimated Date of Delivery Comments Yes 03/28/2019 Based on last menstrual period of 06/21/2018 (Exact Date) documented as of this encounter (statuses as of 02/04/2019) Resolved Problems Problem Noted Date Resolved Date Supervision of high-risk 01/17/2019 01/30/2019 Diet controlled gestational diabetes mellitus (GDM) in 11/28/2018 12/30/2018 second trimester Nausea and vomiting during prior to 22 weeks 08/14/2018 12/30/2018 gestation Abnormal maternal glucose tolerance, antepartum 08/07/2018 12/30/2018 High risk , antepartum 08/05/2018 12/30/2018 Primigravida in second trimester 08/05/2018 12/30/2018 Cramping affecting , antepartum 08/05/2018 12/30/2018 Screening breast examination 02/27/2013 08/29/2013 documented as of this encounter (statuses as of 02/04/2019) Immunizations Name Administration Dates Next Due HPV 02/03/2011, 12/01/2010 Rho (d) Immune Globulin 01/13/2019 Td 07/02/2008 Tdap 01/13/2019 documented as of this encounter Social History Tobacco Use Types Packs/Day Years Used Date Never Smoker Smokeless Tobacco: Never Used Alcohol Use Drinks/Week oz/Week Comments No socially-not currently Estimated Date of Delivery Comments Yes 03/28/2019 Based on last menstrual period of 06/21/2018 (Exact Date) Sex Assigned at Date Recorded Not on file Job Start Date Occupation Industry Not on file Not on file Not on file Travel History Travel Start Travel End No recent travel history available. documented as of this encounter Last Filed Vital Signs Not on filedocumented in this encounter Plan of Treatment Date Type Specialty Care Team Description 02/06/2019 Routine OB Satellites Tari Florian MD [address] [phone] Visit David Collier MD [address] [place] [address] Pgy1 02/06/2019 Routine OB Satellites Tari Florian MD [address] [phone] Visit Davdi Collier MD [address] [place] [address] 2, [facility] Nst Ultrasound 02/06/2019 Insole Coverer Visit Maternal Tari Florian MD [address] [phone] Medicine David Collier MD 301 [place] [phone] 2, [facility] Usg Room 02/10/2019 Routine OB Satellites , [facility] Nst Visit Ultrasound 02/10/2019 Routine OB Satellites Faculty, [facility] Visit [facility] 03/13/2019 Insole Coverer Visit Maternal Tari Florian MD [address] [phone] Medicine David Collier MD [address] [place] [phone] 2, [facility] Usg Room Health Maintenance Due Date Last Done Comments PNEUMOCOCCAL 0-64 YEARS COMBINED 2000 SERIES (1 of 1 - PPSV23) EYE EXAM 2004 LDL-C 2004 URINE MICROALBUMIN 2004 HPV VACCINES (3 - Female 3-dose 06/02/2011 02/03/2011, 12/01/2010 series) INFLUENZA VACCINE 03/02/2019 HgA1C 07/16/2019 01/13/2019, 11/28/2018, 11/28/2018 CHLAMYDIA SCREENING 08/05/2019 08/05/2018, 08/29/2013, 01/09/2013, Additional history exists CREATININE (SERUM) 08/19/2019 08/19/2018, 05/30/2018, 08/09/2017 FOOT EXAM 11/29/2019 11/28/2018, 11/28/2018, 11/28/2018 PAP SMEAR 08/05/2021 08/05/2018 DTaP,Tdap,and Td Vaccines (3 - Td) 01/13/2029 01/13/2019, 07/02/2008 documented as of this encounter Results Not on filedocumented in this encounter Insurance Payer Benefit Plan / Subscriber ID Effective Phone Address Type [facility] x[facility] 2018-Tequila LUNA Medicaid HEALTH CHOICE - HE[place] [id number] MANAGED MEDICAID [place], [place] [phone] documented as of this encounter Advance Directives Name Relationship Healthcare Agent Communication Relationship Mona Ramos Mother Primary healthcare agent
--- OUTSIDE RECORDS SUMMARY | 2019-06-11 22:06 | XMS REPORT | Summary of Care ---
:1995 Author Organization [facility] - Health Address [address] [place] [address] Care Team Providers Name Role Phone Joe Hagen MD Consulting Physician Dianne Marshall [facility] Primary Care Provider Encounter Details Date Type Department Care Team Description 02/03/2019 Orders Only [facility] Doctor Unassigned, No [address] [facility] [place] [address] [address] [place] [address] Allergies No Known Allergiesdocumented as of this encounter (statuses as of 02/06/2019) Medications Medication Sig Dispensed Refills Start Date End Date Status blood sugar diagnostic Use as directed 1 Box 10 08/13/2018 Active (FREESTYLE LITE STRIPS) stripIndications: Diet controlled gestational diabetes mellitus (GDM), antepartum lancets 17 gauge Use as directed 1 Each 08/13/2018 Active MiscIndications: Diet controlled gestational diabetes mellitus (GDM), antepartum vit Take 1 Packet by 30 Each 6 08/13/2018 Active 26-odoh-rdsqy-dha mouth daily. (SELECT-OB + DHA) 29 mg [...] as of this encounter (statuses as of 02/06/2019) Active Problems Problem Noted Date Anemia 01/30/2019 Diabetes mellitus complicating , antepartum 12/30/2018 Macrosomia 12/25/2018 Rh negative state in antepartum period 08/07/2018 Estimated Date of Delivery Comments Yes 03/28/2019 Based on last menstrual period of 06/21/2018 (Exact Date) documented as of this encounter (statuses as of 02/06/2019) Resolved Problems Problem Noted Date Resolved Date [...] as of this encounter (statuses as of 02/06/2019) Immunizations Name Administration Dates Next Due HPV [...] Routine OB Satellites Tari Florian MD [address] [phone] Visit David Collier MD [address] [place] [address] Pool, [facility] Resident 02/06/2019 Routine OB Satellites Tari Florian MD [address] [address] Visit David Collier MD [address] [place] [phone] 2, [facility] Nst Ultrasound 02/06/2019 Telephone Clerks Supervisor Visit Maternal Tari Florian MD [address] [phone] Medicine David Collier MD [address] [place] [phone] 2, [facility] Usg Room 02/10/2019 Routine OB Satellites 1, [facility] Nst Visit Ultrasound 02/10/2019 Routine OB Satellites [facility] 03/13/2019 Telephone Clerks Supervisor Visit Maternal Tari Florian MD [address] [address] Medicine David Collier MD [address] [place] [phone] 2, [facility] Usg Room Health Maintenance Due Date Last [...] 01/13/2019, 07/02/2008 documented as of this encounter Procedures Procedure Name Priority Date/Time Associated Diagnosis Comments PATIENT QUESTIONNAIRE Routine 02/03/2019 12:01 AM CDT documented in this encounter Results Not on filedocumented in this encounter Insurance Payer Benefit Plan / Subscriber ID Effective Phone Address Type Group Dates [facility] xxxxxxxxx 2018-Tequila LUNA Medicaid HEALTH CHOICE - HEALTH CHOICE nt [id number] MANAGED MEDICAID [place], [place] MED[place]ID [phone] documented as of this encounter Advance Directives Name Relationship Healthcare Agent Communication Relationship Mona Jangl Mother Primary healthcare agent
--- OUTSIDE RECORDS SUMMARY | 2019-06-11 22:06 | XMS REPORT | Summary of Care ---
:1995 Author Organization [facility] Address [address] [place] [address] Care Team Providers Name Role Phone Joe Hagen MD Consulting Physician Braxton Marte MD Primary Care Provider Reason for Visit Reason Comments ROUTINE VISIT NST Encounter Details Date Type Department Care Team Description 02/06/2019 Routine [facility], Tari Sunshine MD [address] [facility] [id number] [place] [phone] Anemia of mother in , antepartum (Primary Dx); Visit [facility] David Collier MD [address] [place] [phone] Diabetes mellitus complicating , antepartum [facility] Braxton Marte MD [address] [place] [phone] [place] [address], [facility] [address] [place] [address] Allergies No Known Allergiesdocumented as of this [...] Packet by 30 Each 6 08/13/2018 Active 72-eglf-ijdux-dha mouth daily. (SELECT-OB + DHA) 29 mg [...] of this encounter Last Filed Vital Signs Vital Sign Reading Time Taken Comments Blood Pressure 122/60 02/06/2019 10:50 AM CDT Pulse 72 02/06/2019 10:50 AM CDT Temperature 36.9 C (98.5 F) 02/06/2019 10:50 AM CDT Respiratory Rate 18 02/06/2019 10:50 AM CDT Oxygen Saturation - - Inhaled Oxygen Concentration - - Weight 76.3 kg (168 lb 2 oz) 02/06/2019 10:50 AM CDT Height 167.6 cm (5' 6") 02/06/2019 10:50 AM CDT Body Mass Index 27.14 02/06/2019 10:50 AM CDT documented in this encounter Progress Notes Nasreen Gage MD - 02/06/2019 10:30 AM CDT Chief complaint: No chief complaint on file. Pt 23yo presenting for her Bi weekly NSTs due to DM and polyhydramnios. Pt finger sticks are 70s-90s. Gulcometer reviewed. +contractions/cramping -VB -LOF +dizzy +lightheaded +anemia, d/c iron supplementation due to constipation and prescribed colace. Histories OB History Para Term AB Living 1 0 0 0 0 0 SAB TAB Ectopic Multiple Live Births 0 0 0 0 # Outcome Date GA Lbr Beck/2nd Weight Sex Delivery Anes PTL Lv 1 Current Past Medical History: Diagnosis Date Abnormal maternal glucose tolerance, antepartum 08/07/2018 Anemia 01/30/2019 Diabetes mellitus complicating , antepartum 12/30/2018 Diet controlled gestational diabetes mellitus (GDM) in second trimester 11/28 STD (sexually transmitted disease) Chlamydia 2012--treated Family History Problem Relation Age of Onset Arthritis NoFHx Asthma NoFHx defects NoFHx Breast Cancer NoFHx Colon Cancer NoFHx Ovarian Cancer NoFHx Uterine Cancer NoFHx Cancer NoFHx Depression NoFHx Diabetes NoFHx Genetic NoFHx Heart NoFHx High cholesterol NoFHx Hypertension NoFHx Mental retardation NoFHx Neurological NoFHx Osteoporosis NoFHx Psychiatry NoFHx No family status information on file. No past surgical history on file. Social History Socioeconomic History Marital status: Single Spouse name: Not on file Number of children: Not on file Years of education: Not on file Highest education level: Not on file Occupational History Not on file Social Needs Financial resource strain: Not on file Food insecurity: Worry: Not on file Inability: Not on file Transportation needs: Medical: Not on file Non-medical: Not on file Tobacco Use Smoking status: Never Smoker Smokeless tobacco: Never Used Substance and Sexual Activity Alcohol use: No Comment: socially-not currently Drug use: No Sexual activity: Yes Partners: Male control/protection: None Comment: last sexual intercourse 07/29/2018 Lifestyle Physical activity: Days per week: Not on file Minutes per session: Not on file Stress: Not on file Relationships Social connections: Talks on phone: Not on file Gets together: Not on file Attends gnosticist service: Not on file Active member of club or organization: Not on file Attends meetings of clubs or organizations: Not on file Relationship status: Not on file Intimate partner violence: Fear of current or ex partner: Not on file Emotionally abused: Not on file Physically abused: Not on file Forced sexual activity: Not on file Other Topics Concern Not on file Social History Narrative Denies domestic violence or abuse Social History Substance and Sexual Activity Sexual Activity Yes Partners: Male control/protection: None Comment: last sexual intercourse 07/29/2018 Labs Results for POLINA BEASLEY ( ) as of 02/06/2019 13:40 02/03/2019 02/06/2019 RBC x10^6 4.06 HGB 9.8 (L) MCV 78.8 (L) PLT x10^3 269 Protein/Creatinine Ratio Urine 0.2 CREAT U 100.0 T. PROT U 17 Radiology No new radiology Allergies Polina has No Known Allergies. Medications Polina has a current medication list which includes the following prescription (s): docusate, ascorbic acid (vitamin c), ferrous sulfate, blood-glucose meter, blood sugar diagnostic, lancets, and vit 53-hdrz-cbxpp-dha. Review of Systems Constitutional: Negative for chills and fever. HENT: Negative. Eyes: Negative. Respiratory: Negative for cough and shortness of breath. Breasts: Negative. Cardiovascular: Negative. Gastrointestinal: Negative. Genitourinary: Negative for vaginal bleeding. Musculoskeletal: Negative. Skin: Negative. Neurological: Negative. Psychiatric/Behavioral: Negative. Endocrine: Endocrine negative BP 122/60 (BP Location: Left arm, Patient Position: Sitting, BP CUFF SIZE: Adult Medium) | Pulse 72 | Temp 36.9 C (98.5 F) (Oral) | Resp 18 | Ht 5' 6" (1.676 m) | Wt 168 lb 2 oz (76.3 kg) | LMP 06/21/2018 (Exact Date) | BMI 27.14 kg/m Pregravid BMI: 24.1 Physical Exam Vitals reviewed. Cardiovascular: Regular rate and rhythm. Pulmonary/Chest: Normal inspiratory effort. Abdominal: Abdomen is soft. Cervix: SVE: closed/thick/high Assessment/Plan 1.BDM -Diagnosed on entry to care at 6 weeks. -A1c was 5.1 on 01/13. No baseline pr:cr. -Reviewed accuchecks and are in 70s-90s. Glucometer reviewed as well. -Last sono 01/09 with EFW and AC <97% and elevated MARY. -Twice weekly NSTs. - Pr/Cr: 0.2 - NST: 150bpm baseline, +accel, - decels, +irregular contractions - SVE: closed/thick/high Plan: NST reactive and reassuring. labor precautions given. 2. Anemia -Hb 9.9 on 12/25.Prescribediron and vit c. - Iron is making her constipated. Previously ordered colace, patient did not greens picker. - Taken a week off from iron starting 02/03 and give colace a chance to work. - Pt endorses dizziness and lightheadedness Plan: repeat CBC 3. Sero neg, RI, VZVI, Oneg, NKDA, MEDS: vit c and iron. S/p TDAP. This visit did not involve counseling and coordination that comprised more than 50% of the visit time. documented in this encounter Plan of Treatment Date Type Specialty Care Team Description 02/10/2019 Routine OB Satellites 1, [facility] Nst Visit Ultrasound 02/10/2019 Routine OB Satellites Faculty, [facility] Visit [facility] 03/13/2019 Sausage Cutter Visit Maternal Anival, Tari Sunshine MD [address] [facility] [id number] [place] [address] Medicine David Collier MD [address] [place] [address] 2, [facility] Usg Room Name Type Priority Associated Diagnoses Date/Time NON-STRESS IMAGING Routine Diabetes mellitus 02/06/2019 12:07 PM CDT TEST complicating , antepartum Health Maintenance Due Date Last Done Comments [...] Procedure Name Priority Date/Time Associated Diagnosis Comments NON-STRESS TEST Routine 02/06/2019 12:07 Diabetes mellitus PM CDT complicating , antepartum CBC WITH DIFFERENTIAL Routine 02/06/2019 12:06 Anemia of mother in Results for this PM CDT , procedure are in antepartum the results section. CBC WITH DIFF Routine 02/06/2019 12:06 Anemia of mother in Results for this PM CDT , procedure are in antepartum the results section. documented in this encounter Results CBC WITH DIFFERENTIAL (02/06/2019 12:06 PM CDT) WBC 9.88 4.30 - 11.10 [facility] 10*3/L SERVICES RBC 4.06 3.93 - 5.25 [facility] 10*6/L SERVICES HGB 9.8 (L) 11.6 - 15.0 [facility] g/dL SERVICES HCT 32.0 (L) 35.7 - 45.2 % [facility] MCV 78.8 (L) 80.6 - 95.5 fL [facility] MCH 24.1 (L) 25.9 - 32.8 pg [facility] MCHC 30.6 (L) 31.6 - 35.1 [facility] g/dL SERVICES RDW-SD 52.8 (H) 39.0 - 49.9 fL [facility] RDW-CV 19.9 (H) 12.0 - 15.5 % [facility] PLT 269 166 - 358 [facility] 10*3/L SERVICES MPV 10.9 9.5 - 12.9 fL [facility] NRBC/100 WBC 0.0 0.0 - 10.0 /100 [facility] WBCs SERVICES NRBC x10^3 <0.01 10*3/L [facility] GRAN MAT (NEUT) % 70.4 % [facility] IMM GRAN % 1.30 % [facility] LYMPH % 18.1 % [facility] MONO % 9.0 % [facility] EOS % 0.9 % [facility] BASO % 0.3 % [facility] GRAN MAT x10^3(ANC) 6.95 1.88 - 7.09 [facility] 10*3/uL SERVICES IMM GRAN x10^3 0.13 (H) 0.00 - 0.06 [facility] 10*3/uL SERVICES LYMPH x10^3 1.79 1.32 - 3.29 [facility] 10*3/uL SERVICES MONO x10^3 0.89 0.33 - 0.92 [facility] 10*3/uL SERVICES EOS x10^3 0.09 0.03 - 0.39 [facility] 10*3/uL SERVICES BASO x10^3 0.03 0.01 - 0.07 [facility] 10*3/uL SERVICES Specimen Blood - ARM, RIGHT Performing Organization Address City/State/Zipcode Phone Number [facility] CLIA: [id number], [address] [place] [address] [phone] [facility] documented in this encounter Visit Diagnoses Diagnosis Anemia of mother in , antepartum - Primary Anemia, antepartum Diabetes mellitus complicating , antepartum Diabetes mellitus, antepartum documented in this encounter Insurance Payer Benefit Plan / Subscriber ID Effective Phone Address Type Group [facility] xxxxxxxxx 2018-Tequila PDenae LUNA Medicaid [employer] - [employer] [id number] MANAGED MEDICAID [place], [place] [phone] documented as of this encounter Advance Directives Name Relationship Healthcare Agent Communication Relationship Mona Beasley Mother Primary healthcare agent
--- OUTSIDE RECORDS SUMMARY | 2019-06-11 22:07 | XMS REPORT | Summary of Care ---
:1995 Author Organization [facility] Address [address] [place] [address] 140[address] Care Team Providers Name Role Phone Joe Hagen MD Consulting Physician Braxton Marte MD Primary Care Provider Reason for Visit Reason Comments Care NST Encounter Details Date Type Department Care Team Description 02/13/2019 [facility] [address] [place], [place] [address] Polyhydramnios affecting in third trimester ( Primary Dx); Visit Sterling Butcher-Rmchp-Np/High Diabetes mellitus complicating , antepartum; [address] Anemia of mother in , antepartum; [place], [place] Rh negative state in antepartum period; [address] Macrosomia; [phone] Supervision of high risk in second trimester Allergies No Known Allergiesdocumented as of this encounter (statuses as of 02/13/2019) Medications Medication Sig Dispensed Refills Start Date End Date Status blood sugar diagnostic Use as directed 1 Box 08/13/2018 Active (FREESTYLE LITE STRIPS) stripIndications: Diet controlled gestational diabetes mellitus (GDM), antepartum lancets 17 gauge Use as directed 1 Each 10 08/13/2018 Active MiscIndications: Diet controlled gestational diabetes mellitus (GDM), antepartum vit Take 1 Packet by 30 Each 6 08/13/2018 Active 88-zpiy-nkvuo-dha mouth daily. (SELECT-OB + DHA) 29 mg [...] as of this encounter (statuses as of 02/13/2019) Active Problems Problem Noted Date Polyhydramnios, antepartum complication 02/06/2019 Overview: NST x2 weekly Anemia 01/30/2019 Diabetes mellitus complicating , antepartum 12/30/2018 Macrosomia 12/25/2018 Rh negative state in antepartum period 08/07/2018 Estimated Date of Delivery Comments Yes 03/28/2019 Based on last menstrual period of 06/21/2018 (Exact Date) documented as of this encounter (statuses as of 02/13/2019) Resolved Problems Problem Noted Date Resolved Date [...] as of this encounter (statuses as of 02/13/2019) Immunizations Name Administration Dates Next Due HPV [...] Sign Reading Time Taken Comments Blood Pressure 104/69 02/13/2019 2:31 PM CDT Pulse 104 02/13/2019 2:31 PM CDT Temperature 37 C (98.6 F) 02/13/2019 2:31 PM CDT Respiratory Rate 16 02/13/2019 2:31 PM CDT Oxygen Saturation - - Inhaled Oxygen Concentration - - Weight 76.8 kg (169 lb 6 oz) 02/13/2019 2:31 PM CDT Height 167.6 cm (5' 6") 02/13/2019 2:31 PM CDT Body Mass Index 27.34 02/13/2019 2:31 PM CDT documented in this encounter Progress Notes Priti Rothman - 02/13/2019 2:30 PM CDT Chief complaint: Chief Complaint Patient presents with Care NST HPI Polina Beasley is a 23 year old HF who is 33w6d with IUP. Her Estimated Date of Delivery: 03/28/19 by LMP. Denies headache, n/v, visual changes , sob, cp, ruq pain, bleeding,lof and ctxs. Has +FM. Wants to have SVE today just to make sure no cervical dilation. Histories OB History Para Term AB Living [...] gestational diabetes mellitus (GDM) in second trimester 5/30 /2019 STD (sexually transmitted disease) Chlamydia 2012--treated Family [...] file Gets together: Not on file Attends faith service: Not on file Active member of [...] None Comment: last sexual intercourse 07/29/2018 Labs No new labs Radiology No new radiology. Allergies Polina has No Known Allergies. Medications Polina has a current medication list which includes the following prescription (s): docusate, ascorbic acid (vitamin c), ferrous sulfate, blood-glucose meter, blood sugar diagnostic, lancets, and vit 45-rtgw-qduqe-dha. Review of Systems See HPI BP 104/69 (BP Location: Right arm, Patient Position: Sitting, BP CUFF SIZE: Adult Medium) | Pulse 104 | Temp 37 C (98.6 F) (Oral) | Resp 16 | Ht 5' 6" (1.676 m) | Wt 169 lb 6 oz (76.8 kg) | LMP 06/21/2018 (Exact Date) | BMI 27.34 kg/m Pregravid BMI: 24.1 Physical Exam CONSTITUTIONAL: no apparent distress, appearing age-appropriate. GASTROINTESTINAL: abdomen soft, nontender, . NEUROLOGICAL/PSYCHIATRIC: alert, awake, and oriented x 3. Normal mood and affect. EXTREMITIES: No calf tenderness bilaterally.no pitting edema bilaterally. Musculoskeletal: no clubbing, cyanosis or edema, peripheral pulses 2+ in all extremities NST cat I SVE 0/0/high Assessment/Plan at 33w6d Polyhydramnios affecting in third trimester (primary encounter diagnosis) Comment: noted on recent usg. NST cat I Plan: 2xwkly NST, monitor BS F/u usg scheduled Diabetes mellitus complicating , antepartum Comment: on diet only. A1C 5.1% Glucometer reviewed today-7 day avg 88. Plan: POCT URINALYSIS W SPECIFIC GRAVITY Anemia of mother in , antepartum Comment: HGB Date Value 02/06/2019 9.8 g/dL (L) 12/01/2010 11.8 G/DL stopped iron for 1wk due to constipation but will restart today Plan: continue extra iron and repeat cbc at 35-36wks Rh negative state in antepartum period Comment: s/p rhogam 01/13/19 Plan: exp mtmg Macrosomia Comment: >97/5 Plan: f/u usg scheduled Supervision of high risk in second trimester Comment: 33w6d Plan: POCT URINALYSIS W SPECIFIC GRAVITY Routine care Warnings given ARMIDA Coto- #[id number] This visit did not involve counseling and coordination that comprised more than 50% of the visit time. documented in this encounter Plan of Treatment Date Type Specialty Care Team Description 03/13/2019 Clinic Receptionist Visit Maternal Medicine Tari Florian MD 301 [facility] [id number] [place] [address] David Collier MD [address] [place] [address] 2, [facility] Mf Usg Room Name Type Priority Associated Diagnoses Date/Time CREATININE U 24 HR LAB Routine Diabetes mellitus 02/13/2019 3:26 PM complicating , CDT antepartum PROTEIN QUANT U/24H LAB Routine Diabetes mellitus 02/13/2019 3:26 PM complicating , CDT antepartum COMP. METABOLIC PANEL LAB Routine Diabetes mellitus 02/13/2019 3:24 PM ([id number]) complicating , CDT antepartum Health Maintenance Due Date Last Done Comments PNEUMOCOCCAL 0-64 YEARS COMBINED 2000 SERIES (1 of 1 - PPSV23) EYE EXAM 2004 LDL-C 2004 URINE MICROALBUMIN 2004 HPV VACCINES (3 - Female 3-dose 06/02/2011 02/03/2011, 12/01/2010 series) INFLUENZA VACCINE (#1) 2019 HgA1C 07/16/2019 01/13/2019, 11/28/2018, 11/28/2018 CHLAMYDIA SCREENING 08/05/2019 08/05/2018, 08/29/2013, 01/09/2013, Additional history exists CREATININE (SERUM) 08/19/2019 08/19/2018, 05/30/2018, 08/09/2017 FOOT EXAM 11/29/2019 11/28/2018, 11/28/2018, 11/28/2018 PAP SMEAR 08/05/2021 08/05/2018 DTaP,Tdap,and Td Vaccines (3 - Td) 01/13/2029 01/13/2019, 07/02/2008 documented as of this encounter Procedures Procedure Name Priority Date/Time Associated Diagnosis Comments NON-STRESS Routine 02/13/2019 3:12 Diabetes mellitus Results for this TEST PM CDT complicating procedure are in , antepartum the results Polyhydramnios section. affecting in third trimester POCT URINALYSIS Routine 02/13/2019 2:32 Supervision of high Results for this PM CDT risk in procedure are in second trimester the results Diabetes mellitus section. complicating , antepartum documented in this encounter Results NON-STRESS TEST (02/13/2019 3:12 PM CDT) Specimen Narrative Performed At Cat I PACS Performing Organization Address City/State/Zipcode Phone Number PACS POCT URINALYSIS W SPECIFIC GRAVITY (02/13/2019 2:32 PM CDT) POCT U SP GRAV . 1.005 - 1.025 mg/dl POCT PH U 6 5 - 8 mg/dl POCT U LEUK EST Trace Negative - Negative POCT U NIT Neg Negative - Negative POCT U PROT Trace Negative - Negative POCT U GLU Neg Negative - Negative POCT U KETONE None Negative - Negative POCT U UROBILI . 0.2 - 1 mg/dl POCT U BILI . Negative - Negative POCT U BLD Neg Negative - Negative POCT U COLOR POCT U APPEAR Specimen Urine - URINE, CLEAN CATCH documented in this encounter Visit Diagnoses Diagnosis Polyhydramnios affecting in third trimester - Primary Diabetes mellitus complicating , antepartum Diabetes mellitus, antepartum Anemia of mother in , antepartum Anemia, antepartum Rh negative state in antepartum period Rhesus isoimmunization affecting management of mother, antepartum condition Macrosomia Exceptionally large baby relating to long gestation Supervision of high risk in second trimester Unspecified high-risk documented in this encounter Insurance Payer Benefit Plan / Subscriber ID Effective Phone Address Type Group [facility] xxxxxxxxx 2018-Tequila [address] Medicaid HEALTH CHOICE - HEALTH CHOICE [id number] MANAGED MEDICAID [place], [place] MEDICAID [phone] documented as of this encounter Advance Directives Name Relationship Healthcare Agent Communication Relationship Mona Beasley Mother Primary healthcare agent
--- OUTSIDE RECORDS SUMMARY | 2019-06-11 22:07 | XMS REPORT | Summary of Care ---
:1994 Author Organization [facility] Address [address] [place] [address] Care Team Providers Name Role Phone Joe Hagen MD Consulting Physician rBaxton Marte MD Primary Care Provider Reason for Visit Reason Comments Care NST Encounter Details Date Type Department Care Team Description 02/13/2019 [facility] [address] [place], [place] [address] Polyhydramnios affecting in third trimester ( Primary Dx); Visit Sterling Butcher-Rmchp-Np/High Diabetes mellitus complicating , antepartum; [address] Anemia of mother in , antepartum; [place], [place] Rh negative state in antepartum period; [address] Macrosomia; [phone] Supervision of high risk in second trimester [...] Packet by 30 Each 6 08/13/2018 Active 87-tuhm-prtzx-dha mouth daily. (SELECT-OB + DHA) 29 mg [...] file Gets together: Not on file Attends sabianist service: Not on file Active member of [...] meter, blood sugar diagnostic, lancets, and vit 60-ayui-ddhzd-dha. Review of Systems See HPI BP 104/69 [...] GRAVITY Routine care Warnings given ARMIDA Coto- #[id number] This visit did not involve counseling and coordination that comprised more than 50% of the visit time. documented in this encounter Plan of Treatment Date Type Specialty Care Team Description 03/13/2019 Printed Circuit Layout Taper Visit Maternal Medicine Tari Florian MD 301 [facility] [id number] [place] [address] David Collier MD [address] [place] [address] 2, [facility] Mf Usg Room Name Type Priority Associated Diagnoses Order Schedule CREATININE U 24 HR LAB Routine Diabetes mellitus Ordered: 02/13/2019 complicating , antepartum PROTEIN QUANT U/24H LAB Routine Diabetes mellitus Ordered: 02/13/2019 complicating , antepartum CREATININE CLEARANCE LAB Routine Diabetes mellitus Ordered: 02/13/2019 complicating , antepartum COMP. METABOLIC PANEL LAB Routine Diabetes mellitus Ordered: 02/13/2019 ([id number]) complicating , antepartum Health Maintenance Due Date [...] ID Effective Phone Address Type Group [facility] xxxxxxxxx 2018-Tequila P.OMayur LUNA Medicaid HEALTH CHOICE - HEALTH CHOICE nt [id number] MANAGED MEDICAID [place], [place] MEDICAID [phone] documented as of this encounter Advance Directives Name Relationship Healthcare Agent Communication Relationship Mona Beasely Mother Primary healthcare agent
--- OUTSIDE RECORDS SUMMARY | 2019-06-11 22:07 | XMS REPORT | Summary of Care ---
:1994 Author Organization [facility] Address [address] [place] [address] Care Team Providers Name Role Phone Joe Hagen MD Consulting Physician Braxton Marte MD Primary Care Provider Reason for Visit Reason Comments Care NST Encounter Details Date Type Department Care Team Description 02/13/2019 [facility] [address] [place], [place] [address] Polyhydramnios affecting in third trimester ( Primary Dx); Visit Sterling Butcher-Rmchp-Np/High Diabetes mellitus complicating , antepartum; [address] [place] Anemia of mother in , antepartum; [place], [place] Rh negative state in antepartum period; [address] Macrosomia; [phone] Supervision of high risk in second trimester [...] Packet by 30 Each 6 08/13/2018 Active 28-kobl-vmttz-dha mouth daily. (SELECT-OB + DHA) 29 mg [...] file Gets together: Not on file Attends synagogue service: Not on file Active member of [...] meter, blood sugar diagnostic, lancets, and vit 75-ecnt-dnydj-dha. Review of Systems See HPI BP 104/69 [...] GRAVITY Routine care Warnings given ARMIDA Coto- #[id number] This visit did not involve counseling and coordination that comprised more than 50% of the visit time. documented in this encounter Plan of Treatment Date Type Specialty Care Team Description 03/13/2019 Software Design Manager Visit Maternal Medicine Tari Florian MD 301 [facility] [id number] [place] [address] David Collier MD [address] [place] [address] 2, [facility] Mfm Usg Room Name Type Priority Associated Diagnoses Date/Time CREATININE U 24 HR LAB Routine Diabetes mellitus 02/13/2019 3:26 PM CDT complicating , antepartum PROTEIN QUANT U/24H LAB Routine Diabetes mellitus 02/13/2019 3:26 PM CDT complicating , antepartum Name Type Priority Associated Diagnoses Order Schedule COMP. METABOLIC PANEL LAB Routine Diabetes mellitus Ordered: 02/13/2019 ([id number]) complicating , antepartum Health Maintenance Due Date [...] Subscriber ID Effective Phone Address Type Group [facility] xxxxxxxxx 2018-Tequila LUNA Medicaid HEALTH CHOICE - HEALTH [employer] [id number] MANAGED MEDICAID [place], [place] [phone] documented as of this encounter Advance Directives Name Relationship Healthcare Agent Communication Relationship Mona Beasley Mother Primary healthcare agent
--- OUTSIDE RECORDS SUMMARY | 2019-06-11 22:07 | XMS REPORT | Summary of Care ---
:1994 Author Organization [facility] Address [address] [place] [address] Care Team Providers Name Role Phone Joe Hagen MD Consulting Physician Barxton Marte MD Primary Care Provider Encounter Details Date Type Department Care Team Description 02/06/2019 Abstract [facility] [place] Alice De La Paz, COSTUME SHOP MANAGER [address] [facility], [place] [address] [place] [address] [place] [address] [phone] Allergies No Known Allergiesdocumented as of this [...] Packet by 30 Each 6 08/13/2018 Active 06-xpbi-jztio-dha mouth daily. (SELECT-OB + DHA) 29 mg [...] of 02/06/2019) Active Problems Problem Noted Date Polyhydramnios, antepartum [...] Team Description 02/10/2019 Routine OB Satellites 1, Sterling-Rmchp Nst Visit Ultrasound 02/10/2019 Routine OB Satellites Faculty, Sterling chp Visit Mfm 03/13/2019 Streets And Buildings Decorator Visit Maternal Anival, Tari Sunshine MD 301 [facility] [id number] [place] [address] Medicine David Collier MD [address] [place] [address] 2, [facility] Us Room Health Maintenance Due Date Last Done [...] ID Effective Phone Address Type Group Dates [facility] xxxxxxxxx 2018-Tequila LUNA Medicaid HEALTH CHOICE - HEALTH CHOICE nt [id number] [place] MED[place] [phone] documented as of this encounter Advance Directives Name Relationship Healthcare Agent Communication Relationship Mona Beasley Mother Primary healthcare agent
--- OUTSIDE RECORDS SUMMARY | 2019-06-11 22:07 | XMS REPORT | Summary of Care ---
:1994 Author Organization [facility] Address [address] [place] [address] Care Team Providers Name Role Phone Joe Hagen MD Consulting Physician Braxton Marte MD Primary Care Provider Reason for Visit Reason Comments ULTRASOUND (Routine) Status Reason Specialty Diagnoses / Referred By Referred To Procedures Contact Contact Closed Maternal Diagnoses High risk , antepartum Alice De La Paz Medicine Procedures CONSULT MATERNAL MEDICINE ULTRASOUND Preferred Location: [facility] [address] [place] [address] Encounter Details Date Type Department Care Team Description 02/06/2019 Content Publisher Visit [facility] Anival, Tari Sunshine MD [address] [address] Poor growth [facility] David Collier MD 301 [place] [address] affecting management [facility] Breonna Fenton MD [address] [address] of mother in third [address] [place] 2, [facility] Usg Room trimester, single or Drive, [address] [place] [address] Allergies No Known Allergiesdocumented as of this [...] Packet by 30 Each 6 08/13/2018 Active 94-qssz-ebcvs-dha mouth daily. (SELECT-OB + DHA) 29 mg [...] Team Description 02/10/2019 Routine OB Satellites 1, [facility] Nst Visit Ultrasound 02/10/2019 Routine OB Satellites Faculty, [facility] Visit [facility] 03/13/2019 Content Publisher Visit Maternal Anival, Tari Sunshine MD 301 [facility] [id number] [place], [place] [id number] Medicine David Collier MD 301 [place] [address] 2, [facility] Us Room Health Maintenance Due Date [...] Procedure Name Priority Date/Time Associated Diagnosis Comments SECOND AND THIRD Routine 02/06/2019 2:03 PM TRIMESTER ULTRASOUND CDT documented in this encounter Results SECOND AND THIRD TRIMESTER ULTRASOUND (02/06/2019 2:03 PM CDT) Specimen documented in this encounter Visit Diagnoses Diagnosis Poor growth affecting management of mother in third trimester, single or unspecified fetus documented in this encounter Insurance Payer Benefit Plan / Subscriber ID Effective Phone Address Type Group Dates [facility] xxxxxxxxx 2018-[place] [address] Medicaid HEALTH CHOICE - HEALTH [employer] [id number] MANAGED MEDICAID [place], [place] [phone] documented as of this encounter Advance Directives Name Relationship Healthcare Agent Communication Relationship Mona Beasley Mother Primary healthcare agent
--- OUTSIDE RECORDS SUMMARY | 2019-06-11 22:08 | XMS REPORT | Summary of Care ---
:1994 Author Organization [facility] Address [address] [place] [address] Care Team Providers Name Role Phone Joe Hagen MD Consulting Physician Braxton Marte MD Primary Care Provider Reason for Visit Reason Comments Care NST Encounter Details Date Type Department Care Team Description 02/13/2019 [facility] [address] [place], [place] [address] Polyhydramnios affecting in third trimester ( Primary Dx); Visit Sterling Butcher-Rmchp-Np/High Diabetes mellitus complicating , antepartum; [address] [place] Anemia of mother in , antepartum; [place], [place] Rh negative state in antepartum period; [address] Macrosomia; [phone] Supervision of high risk in second trimester [...] Packet by 30 Each 6 08/13/2018 Active 76-qpen-xxovv-dha mouth daily. (SELECT-OB + DHA) 29 mg [...] file Gets together: Not on file Attends latter-day service: Not on file Active member of [...] meter, blood sugar diagnostic, lancets, and vit 91-vfqt-ewxfz-dha. Review of Systems See HPI BP 104/69 [...] GRAVITY Routine care Warnings given ARMIDA Coto- #[id number] This visit did not involve counseling and coordination that comprised more than 50% of the visit time. documented in this encounter Plan of Treatment Date Type Specialty Care Team Description 02/17/2019 Routine OB Satellites 1, Sterling-Rmmartínezp Nst Visit Ultrasound 02/17/2019 Routine OB Satellites Dianne Marshall Visit C, [facility] [address] [place] [address] [phone] 02/20/2019 Routine OB Satellites 1, [facility] Nst Visit Ultrasound 02/20/2019 Routine OB Satellites Risk, Visit Wna-Mzygy-Tb/High 03/13/2019 Renderer Visit Maternal Anival, Tari Sunshine MD 301 [facility] [id number] [place] [address] Medicine David Collier MD [address] [place] [address] 2, [facility] Usg Room Name Type Priority Associated Diagnoses Date/Time CREATININE U 24 HR LAB Routine Diabetes mellitus 02/13/2019 3:26 PM complicating , CDT antepartum PROTEIN QUANT U/24H LAB Routine Diabetes mellitus 02/13/2019 3:26 PM complicating , CDT antepartum COMP. METABOLIC PANEL LAB Routine Diabetes mellitus 02/13/2019 3:24 PM ([id number]) complicating , CDT antepartum Health Maintenance Due [...] ID Effective Phone Address Type Group Dates [facility] xxxxxxxxx 2018-Tequila [address] Medicaid HEALTH CHOICE - HEALTH [employer] nt [id number] MANAGED MEDICAID [place], [place] [phone] documented as of this encounter Advance Directives Name Relationship Healthcare Agent Communication Relationship Mona Beasley Mother Primary healthcare agent
--- OUTSIDE RECORDS SUMMARY | 2019-06-11 22:08 | XMS REPORT | Summary of Care ---
:1994 Author Organization [facility] Address [address] [place] [address] Care Team Providers Name Role Phone Joe Hagen MD Consulting Physician Braxton Marte MD Primary Care Provider Reason for Visit Reason Comments Care NST Encounter Details Date Type Department Care Team Description 02/13/2019 [facility]ine [facility] [address] [place], [place] [address] Polyhydramnios affecting in third trimester ( Primary Dx); Visit Sterling Butcher-Rmchp-Np/High Diabetes mellitus complicating , antepartum; [address] [place] Anemia of mother in , antepartum; [place], [place] Rh negative state in antepartum period; [address] Macrosomia; [phone] Supervision of high risk in second trimester [...] Packet by 30 Each 6 08/13/2018 Active 97-isyp-cjksm-dha mouth daily. (SELECT-OB + DHA) 29 mg [...] file Gets together: Not on file Attends shinto service: Not on file Active member of [...] meter, blood sugar diagnostic, lancets, and vit 34-eyic-bwtlp-dha. Review of Systems See HPI BP 104/69 [...] GRAVITY Routine care Warnings given ARMIDA Coto- #[id number] This visit did not involve counseling and coordination that comprised more than 50% of the visit time. documented in this encounter Plan of Treatment Date Type Specialty Care Team Description 02/17/2019 Routine OB Satellites 1, Sterling-Rmmartínezp Nst Visit Ultrasound 02/17/2019 Routine OB Satellites Dianne Marshall Visit C, [facility] [address] [place] [address] [phone] 02/20/2019 Routine OB Satellites 1, Ang-Rmchp Nst Visit Ultrasound 02/20/2019 Routine OB Satellites Risk, Visit Cst-Jzwwi-Ds/High 02/24/2019 Routine OB Satellites 2, Ang-Rmchp Nst Visit Ultrasound 02/24/2019 Routine OB Satellites Faculty, Ang Rmchp Visit Mfm 02/27/2019 Routine OB Satellites 2, Ang-Rmchp Nst Visit Ultrasound 02/27/2019 Routine OB Satellites Risk, Visit Voo-Krduv-Hi/High 03/13/2019 Electrical Tester Battery Visit Maternal Anival, Tari Sunshine MD 301 [facility] [id number] [place] [address] Medicine David Collier MD 301 [place] [address] 2, [facility] Usg Room Name Type Priority Associated Diagnoses Date/Time CREATININE U 24 HR LAB Routine Diabetes mellitus 02/13/2019 3:26 PM complicating , CDT antepartum PROTEIN QUANT U/24H LAB Routine Diabetes mellitus 02/13/2019 3:26 PM complicating , CDT antepartum COMP. METABOLIC PANEL LAB Routine Diabetes mellitus 02/13/2019 3:24 PM ([id number]) complicating , CDT antepartum Health Maintenance Due [...] ID Effective Phone Address Type Group Dates [facility] xxxxxxxxx 2018-Tequila LUNA Medicaid HEALTH CHOICE - HEALTH CHOICE [id number] [facility] MEDICAID [place], [place] MED[place]ID [phone] documented as of this encounter Advance Directives Name Relationship Healthcare Agent Communication Relationship Mona Ramos Mother Primary healthcare agent
--- OUTSIDE RECORDS SUMMARY | 2019-06-11 22:08 | XMS REPORT | Summary of Care ---
:1995 Author Organization [facility] Address [address] [place] [address] Care Team Providers Name Role Phone Joe Hagen MD Consulting Physician Braxton Marte MD Primary Care Provider Reason for Visit Reason Comments Care Encounter Details Date Type Department Care Team Description 02/17/[address] [facility]- [place], Supervision of high risk in third trimester (Primary Dx); Visit [place] Dianne C, WHCNP Diabetes mellitus complicating , antepartum; [address] Polyhydramnios, antepartum, single or unspecified fetus; [place], [place] ST Rh negative state in antepartum period [id number] [facility] A [phone] [place] [address] Allergies No Known Allergiesdocumented as of this encounter (statuses as of 02/17/2019) Medications Medication Sig Dispensed Refills Start Date End Date Status blood sugar diagnostic Use as directed 1 Box 08/13/2018 Active (FREESTYLE LITE STRIPS) stripIndications: Diet controlled gestational diabetes mellitus (GDM), antepartum lancets 17 gauge Use as directed 1 Each 08/13/2018 Active MiscIndications: Diet controlled gestational diabetes mellitus (GDM), antepartum vit Take 1 Packet by 30 Each 08/13/2018 Active 77-mqvw-wsfvp-dha mouth daily. (SELECT-OB + DHA) 29 mg [...] as of this encounter (statuses as of 02/17/2019) Active Problems Problem Noted Date Polyhydramnios, antepartum complication 02/06/2019 Overview: NST x2 weekly Anemia 01/30/2019 Diabetes mellitus complicating , antepartum 12/30/2018 Macrosomia 12/25/2018 Rh negative state in antepartum period 08/07/2018 Estimated Date of Delivery Comments Yes 03/28/2019 Based on last menstrual period of 06/21/2018 (Exact Date) documented as of this encounter (statuses as of 02/17/2019) Resolved Problems Problem Noted Date Resolved Date [...] as of this encounter (statuses as of 02/17/2019) Immunizations Name Administration Dates Next Due HPV [...] Sign Reading Time Taken Comments Blood Pressure 105/66 02/17/2019 10:35 AM CDT Pulse 100 02/17/2019 10:35 AM CDT Temperature 36.8 C (98.2 F) 02/17/2019 10:35 AM CDT Respiratory Rate 16 02/17/2019 10:35 AM CDT Oxygen Saturation - - Inhaled Oxygen Concentration - - Weight 77.3 kg (170 lb 6 oz) 02/17/2019 10:35 AM CDT Height 167.6 cm (5' 6") 02/17/2019 10:35 AM CDT Body Mass Index 27.5 02/17/2019 10:35 AM CDT documented in this encounter Progress Notes Dianne Marshall, WHCNP - 02/17/2019 10:00 AM CDT Chief complaint: Chief Complaint Patient presents with Care HPI CC: Follow Up Visit Polina Beasley is a 23 year old, , /White female. Patient's last menstrualperiod was 06/21/2018 (exact date). She is 34w3d with an intrauterine . Her estimated date of delivery is 03/28/2019, by Last Menstrual Period. She has no complaints today. She reports +FM and denies contractions, LOF and bleeding today. Histories OB History Para Term AB Living [...] file Gets together: Not on file Attends yarsani service: Not on file Active member of [...] sexual intercourse 07/29/2018 Labs No new labs and Routine Visit on 02/13/2019 Component Date Value POCT U SP GRAV 02/13/2019 . POCT PH U 02/13/2019 6 POCT U LEUK EST 02/13/2019 Trace POCT U NIT 02/13/2019 Neg POCT U PROT 02/13/2019 Trace POCT U GLU 02/13/2019 Neg POCT U KETONE 02/13/2019 None POCT U UROBILI 02/13/2019 . POCT U BILI 02/13/2019 . POCT U BLD 02/13/2019 Neg T. VOL U 02/13/2019 2,000 HR COLLECT 02/13/2019 24 CREAT U 02/13/2019 49.0 CREA U/24H 02/13/2019 1.0 T. VOL U 02/13/2019 2,000 HR COLLECT 02/13/2019 24 T. PROT U 02/13/2019 14 PRO U/24HR 02/13/2019 280* NA 02/13/2019 138 K 02/13/2019 4.8 CL 02/13/2019 107 CO2 TOTAL 02/13/2019 20* AGAP 02/13/2019 11 BUN 02/13/2019 4* GLUCOSE 02/13/2019 70 CREATININE 02/13/2019 0.38* TOTAL BILI 02/13/2019 0.4 CALCIUM 02/13/2019 9.3 T PROTEIN 02/13/2019 6.9 ALBUMIN 02/13/2019 3.6 ALK PHOS 02/13/2019 100 ALT(SGPT) 02/13/2019 8* AST(SGOT) 02/13/2019 26 eGFR Calculation (Non-Af* 02/13/2019 208.1 eGFR Calculation (Wendy* 02/13/2019 252.2 Routine Visit on 02/06/2019 Component Date Value WBC 02/06/2019 9.88 RBC 02/06/2019 4.06 HGB 02/06/2019 9.8* HCT 02/06/2019 32.0* MCV 02/06/2019 78.8* MCH 02/06/2019 24.1* MCHC 02/06/2019 30.6* RDW-SD 02/06/2019 52.8* RDW-CV 02/06/2019 19.9* PLT 02/06/2019 269 MPV 02/06/2019 10.9 NRBC/100 WBC 02/06/2019 0.0 NRBC x10^3 02/06/2019 <0.01 GRAN MAT (NEUT) % 02/06/2019 70.4 IMM GRAN % 02/06/2019 1.30 LYMPH % 02/06/2019 18.1 MONO % 02/06/2019 9.0 EOS % 02/06/2019 0.9 BASO % 02/06/2019 0.3 GRAN MAT x10^3(ANC) 02/06/2019 6.95 IMM GRAN x10^3 02/06/2019 0.13* LYMPH x10^3 02/06/2019 1.79 MONO x10^3 02/06/2019 0.89 EOS x10^3 02/06/2019 0.09 BASO x10^3 02/06/2019 0.03 Routine Visit on 02/03/2019 Component Date Value POCT U SP GRAV 02/03/2019 . POCT PH U 02/03/2019 6 POCT U LEUK EST 02/03/2019 1+ POCT U NIT 02/03/2019 neg POCT U PROT 02/03/2019 1+ POCT U GLU 02/03/2019 neg POCT U KETONE 02/03/2019 neg POCT U UROBILI 02/03/2019 . POCT U BILI 02/03/2019 . POCT U BLD 02/03/2019 neg T. PROT U 02/03/2019 17 CREAT U 02/03/2019 100.0 Protein/Creatinine Ratio* 02/03/2019 0.2 Routine Visit on 01/20/2019 Component Date Value POCT U SP GRAV 01/20/2019 . POCT PH U 01/20/2019 8 POCT U LEUK EST 01/20/2019 1+ POCT U NIT 01/20/2019 neg POCT U PROT 01/20/2019 trace POCT U GLU 01/20/2019 neg POCT U KETONE 01/20/2019 neg POCT U UROBILI 01/20/2019 . POCT U BILI 01/20/2019 . POCT U BLD 01/20/2019 neg Routine Visit on 01/17/2019 Component Date Value POCT GP A STREP 01/17/2019 Negative POCT INFLUENZA A 01/17/2019 Negative POCT INFLUENZA B 01/17/2019 Negative Routine Visit on 01/15/2019 Component Date Value POCT U SP GRAV 01/15/2019 . POCT PH U 01/15/2019 . POCT U LEUK EST 01/15/2019 . POCT U NIT 01/15/2019 . POCT U PROT 01/15/2019 trace POCT U GLU 01/15/2019 neg POCT U KETONE 01/15/2019 . POCT U UROBILI 01/15/2019 . POCT U BILI 01/15/2019 . POCT U BLD 01/15/2019 . POCT INFLUENZA A 01/15/2019 negative POCT INFLUENZA B 01/15/2019 negative Routine Visit on 01/13/2019 Component Date Value POCT U SP GRAV 01/13/2019 . POCT PH U 01/13/2019 6 POCT U LEUK EST 01/13/2019 2 POCT U NIT 01/13/2019 neg POCT U PROT 01/13/2019 trace POCT U GLU 01/13/2019 neg POCT U KETONE 01/13/2019 neg POCT U UROBILI 01/13/2019 neg POCT U BILI 01/13/2019 neg POCT U BLD 01/13/2019 neg HIV 1/2 Ag-Ab with Reflex 01/13/2019 Negative HIV Semi-quantitative 01/13/2019 0.06 Syphilis IgG/IgM 01/13/2019 Non-reactive HGB A1C 01/13/2019 5.1 Routine Visit on 12/30/2018 Component Date Value T. PROT U 12/30/2018 21 CREAT U 12/30/2018 58.1 Protein/Creatinine Ratio* 12/30/2018 0.4 POCT U SP GRAV 12/30/2018 . POCT PH U 12/30/2018 . POCT U LEUK EST 12/30/2018 2+ POCT U NIT 12/30/2018 neg POCT U PROT 12/30/2018 trace POCT U GLU 12/30/2018 neg POCT U KETONE 12/30/2018 neg POCT U UROBILI 12/30/2018 . POCT U BILI 12/30/2018 . POCT U BLD 12/30/2018 neg Routine Visit on 12/25/2018 Component Date Value POCT U PROT 12/25/2018 neg POCT U GLU 12/25/2018 neg WBC 12/25/2018 12.73* RBC 12/25/2018 4.09 HGB 12/25/2018 9.9* HCT 12/25/2018 32.7* MCV 12/25/2018 80.0* MCH 12/25/2018 24.2* MCHC 12/25/2018 30.3* RDW-SD 12/25/2018 41.1 RDW-CV 12/25/2018 14.2 PLT 12/25/2018 348 MPV 12/25/2018 10.9 NRBC/100 WBC 12/25/2018 0.0 NRBC x10^3 12/25/2018 <0.01 GRAN MAT (NEUT) % 12/25/2018 70.0 IMM GRAN % 12/25/2018 1.30 LYMPH % 12/25/2018 20.3 MONO % 12/25/2018 7.7 EOS % 12/25/2018 0.3 BASO % 12/25/2018 0.4 GRAN MAT x10^3(ANC) 12/25/2018 8.92* IMM GRAN x10^3 12/25/2018 0.16* LYMPH x10^3 12/25/2018 2.58 MONO x10^3 12/25/2018 0.98* EOS x10^3 12/25/2018 0.04 BASO x10^3 12/25/2018 0.05 Routine Visit on 12/11/2018 Component Date Value POCT U PROT 12/11/2018 trace POCT U GLU 12/11/2018 neg There may be more visits with results that are not included. Radiology No new radiology. Allergies Polina has No Known Allergies. Medications Polina has a current medication list which includes the following prescription (s): docusate, ascorbic acid (vitamin c), ferrous sulfate, blood-glucose meter, blood sugar diagnostic, lancets, and vit 30-twrb-zlmhk-dha. Review of Systems Constitutional: Negative. HENT: Negative. Eyes: Negative. Respiratory: Negative. Breasts: Negative. Cardiovascular: Negative. Gastrointestinal: Negative. Genitourinary: Negative. Musculoskeletal: Negative. Skin: Negative. Neurological: Negative. Psychiatric/Behavioral: Negative. Endocrine: Endocrine negative BP 105/66 (BP Location: Right arm, Patient Position: Sitting, BP CUFF SIZE: Adult Medium) | Pulse 100 | Temp 36.8 C (98.2 F) (Oral) | Resp 16 | Ht 5 ' 6" (1.676 m) | Wt 170 lb 6 oz (77.3 kg) |LMP 06/21/2018 (Exact Date) | BMI 27.50 kg/m Pregravid BMI: 24.1 Physical Exam PHYSICAL: General Exam: Neurological: Normal Abdomen: Normal gravid Extremities: Normal Pelvic Exam: Uterus: 34 Weeks Assessment/Plan Return to clinic in 1 weeks. 2x weekly nst Denies zika virus risk, signs and symptoms such as fever,rash,joint pain, conjunctivitis (red eyes),muscle pain, headaches; outside [place] travel to areas affected by zika, and FOB exposure to zika. Educated on use of mosquito repellent. Supervision of high risk in third trimester (primary encounter diagnosis) Comment: routine Plan: POCT URINALYSIS W SPECIFIC GRAVITY, NON-STRESS TEST Diabetes mellitus complicating , antepartum Comment: no log on today, bring log on next visit Plan: POCT URINALYSIS W SPECIFIC GRAVITY Polyhydramnios, antepartum, single or unspecified fetus Comment: NST today Plan: 2x weekly nst NST: cat 1, reactive/reassuring, no ctx, +accels, neg decls, moderate variability Rh negative state in antepartum period Comment: no mgmt today Plan: This visit did not involve counseling and coordination that comprised more than 50% of the visit time. MARY ANNE Arias 02/17/2019 11:08 AM documented in this encounter Plan of Treatment Date Type Specialty Care Team Description 02/20/2019 Routine OB Satellites 1, Ang-Rmchp Nst Visit Ultrasound 02/20/2019 Routine OB Satellites Risk, Visit Qzy-Yzppq-Vp/High 02/24/2019 Routine OB Satellites 2, Ang-Rmchp Nst Visit Ultrasound 02/24/2019 Routine OB Satellites FacultySterlingchp Visit [facility] 02/27/2019 Routine OB Satellites 2, Ang-Rmchp Nst Visit Ultrasound 02/27/2019 Routine OB Satellites Risk, Visit Jdq-Xtmqn-Iw/High 03/13/2019 Branding Machine Tender Visit Maternal Anival, Tari Sunshine MD [address] [facility] [id number] [place] [address] Medicine David Collier MD [address] [place] [phone] 2, [facility] Usg Room Health Maintenance Due Date Last Done Comments PNEUMOCOCCAL 0-64 YEARS COMBINED 2000 SERIES (1 of 1 - PPSV23) EYE EXAM 2004 LDL-C 2004 URINE MICROALBUMIN 2004 HPV VACCINES (3 - Female 3-dose 06/02/2011 02/03/2011, 12/01/2010 series) INFLUENZA VACCINE (#1) 2019 HgA1C 07/16/2019 01/13/2019, 11/28/2018, 11/28/2018 CHLAMYDIA SCREENING 08/05/2019 08/05/2018, 08/29/2013, 01/09/2013, Additional history exists FOOT EXAM 11/29/2019 11/28/2018, 11/28/2018, 11/28/2018 CREATININE (SERUM) 02/14/2020 02/13/2019, 08/19/2018, 05/30/2018, Additional history exists PAP SMEAR 08/05/2021 08/05/2018 DTaP,Tdap,and Td Vaccines (3 - Td) 01/13/2029 01/13/2019, 07/02/2008 documented as of this encounter Procedures Procedure Name Priority Date/Time Associated Diagnosis Comments NON-STRESS Routine 02/17/2019 11:06 Supervision of high Results for this TEST AM CDT risk in procedure are in third trimester the results section. POCT URINALYSIS Routine 02/17/2019 10:37 Supervision of high Results for this AM CDT risk in procedure are in third trimester the results Diabetes mellitus section. complicating , antepartum documented in this encounter Results NON-STRESS TEST (02/17/2019 11:06 AM CDT) Specimen Narrative Performed At NST: cat 1, reactive/reassuring, no ctx, +accels, neg decls, moderate PACS variability Performing Organization Address City/State/Zipcode Phone Number PACS POCT URINALYSIS W SPECIFIC GRAVITY (02/17/2019 10:37 AM CDT) POCT U SP GRAV . 1.005 - 1.025 mg/dl POCT PH U . 5 - 8 mg/dl POCT U LEUK EST . Negative - Negative POCT U NIT . Negative - Negative POCT U PROT Trace Negative - Negative POCT U GLU Neg Negative - Negative POCT U KETONE . Negative - Negative POCT U UROBILI . 0.2 - 1 mg/dl POCT U BILI . Negative - Negative POCT U BLD . Negative - Negative POCT U COLOR POCT U APPEAR Specimen Urine - URINE, CLEAN CATCH documented in this encounter Visit Diagnoses Diagnosis Supervision of high risk in third trimester - Primary Unspecified high-risk Diabetes mellitus complicating , antepartum Diabetes mellitus, antepartum Polyhydramnios, antepartum, single or unspecified fetus Rh negative state in antepartum period Rhesus isoimmunization affecting management of mother, antepartum condition documented in this encounter Insurance Payer Benefit Plan / Subscriber ID Effective Phone Address Type Group [facility] xxxxxxxxx 2018-Tequila P.OMayur LUNA Medicaid HEALTH [employer] - [employer] nt [phone] MANAGED MEDICAID [place], [place] MEDICAID [phone] documented as of this encounter Advance Directives Name Relationship Healthcare Agent Communication Relationship Mona Beasley Mother Primary healthcare agent
--- OUTSIDE RECORDS SUMMARY | 2019-06-11 22:08 | XMS REPORT | Summary of Care ---
:1995 Author Organization [facility] Address [address] [place] [address] Care Team Providers Name Role Phone Joe Hagen MD Consulting Physician Cassie Vaughn [facility] Primary Care Provider Reason for Visit Reason Comments Care Encounter Details Date Type Department Care Team Description 02/20/2019 Routine [facility]- Cassie Vaughn, [facility] [address] [place] [address] Polyhydramnios, antepartum, single or unspecified fetus ( Primary Dx); Visit [place] [facility] GarciaOqy-Eogaw-Mg/High Supervision of high risk in third trimester; [address] Diabetes mellitus complicating , antepartum; [place], [place] Anemia of mother in , antepartum; [phone] Rh negative state in antepartum period; [phone] Macrosomia Allergies No Known Allergiesdocumented as of this encounter (statuses as of 02/23/2019) Medications Medication Sig Dispensed Refills Start Date End Date Status blood sugar diagnostic Use as directed 1 Box 08/13/2018 Active (FREESTYLE LITE STRIPS) stripIndications: Diet controlled gestational diabetes mellitus (GDM), antepartum lancets 17 gauge Use as directed 1 Each 10 08/13/2018 Active MiscIndications: Diet controlled gestational diabetes mellitus (GDM), antepartum vit Take 1 Packet by 30 Each 08/13/2018 Active 32-kini-evlrb-dha mouth daily. (SELECT-OB + DHA) 29 mg [...] as of this encounter (statuses as of 02/23/2019) Active Problems Problem Noted Date Polyhydramnios, antepartum complication 02/06/2019 Overview: NST x2 weekly Anemia 01/30/2019 Diabetes mellitus complicating , antepartum 12/30/2018 Macrosomia 12/25/2018 Rh negative state in antepartum period 08/07/2018 Estimated Date of Delivery Comments Yes 03/28/2019 Based on last menstrual period of 06/21/2018 (Exact Date) documented as of this encounter (statuses as of 02/23/2019) Resolved Problems Problem Noted Date Resolved Date [...] as of this encounter (statuses as of 02/23/2019) Immunizations Name Administration Dates Next Due HPV [...] Sign Reading Time Taken Comments Blood Pressure 106/66 02/20/2019 2:43 PM CDT Pulse 90 02/20/2019 2:43 PM CDT Temperature 36.4 C (97.5 F) 02/20/2019 2:43 PM CDT Respiratory Rate 16 02/20/2019 2:43 PM CDT Oxygen Saturation - - Inhaled Oxygen Concentration - - Weight 77.1 kg (170 lb) 02/20/2019 2:43 PM CDT Height 167.6 cm (5' 6") 02/20/2019 2:43 PM CDT Body Mass Index 27.44 02/20/2019 2:43 PM CDT documented in this encounter Progress Notes Cassie Vaughn, WHCNP - 02/20/2019 2:30 PM CDT Chief complaint: Chief Complaint Patient presents with Care HPI CC: Follow Up Visit Polina Beasley is a 23 year old, , /White female. Patient's last menstrualperiod was 06/21/2018 (exact date). She is 34w6d with an intrauterine . Her estimated date of delivery is 03/28/2019, by Last Menstrual Period. Histories OB History Para Term AB Living [...] file Gets together: Not on file Attends christian service: Not on file Active member of [...] meter, blood sugar diagnostic, lancets, and vit 83-thhn-hcleb-dha. Review of Systems All other systems reviewed and are negative. BP 106/66 (BP Location: Right arm, Patient Position: Sitting, BP CUFF SIZE: Adult Medium) | Pulse 90 | Temp 36.4 C (97.5 F) (Oral) | Resp 16 | Ht 5 ' 6" (1.676 m) | Wt 170 lb (77.1 kg) | LMP 06/21/2018 (Exact Date) | BMI 27.44 kg/m Pregravid BMI: 24.1 Physical Exam PHYSICAL: General Exam: Neurological: Normal Alert, oriented to person, place, time, and situation Abdomen: Normal Soft, non-tender, gravid Extremities: Normal No edema noted Assessment/Plan at 34w6d Polyhydramnios affecting in third trimester (primary encounter diagnosis) Comment: noted on recent usg. NST reactive and reassuring Plan: 2xwkly NST, monitor BS F/u usg scheduled Diabetes mellitus complicating , antepartum Comment: on diet only. A1C 5.1% Glucometer reviewed today-adequate control, continue diet only Plan: POCT URINALYSIS W SPECIFIC GRAVITY Anemia of mother in , antepartum Comment: HGB Date Value 02/06/2019 9.8 g/dL (L) 12/01/2010 11.8 G/DL Plan: continue extra iron and repeat cbc at 35-36wks Rh negative state in antepartum period Comment: s/p rhogam 01/13/19 Plan: exp mtmg Macrosomia Comment: >97.5% Plan: f/u usg scheduled Supervision of high risk in second trimester Comment: 34w6d Plan: POCT URINALYSIS W SPECIFIC GRAVITY Routine care This visit did not involve counseling and coordination that comprised more than 50% of the visit time. documented in this encounter Plan of Treatment Date Type Specialty Care Team Description 02/24/2019 Routine OB Satellites Roque Guillermo MD [address] [facility] [id number] [place], [place] [id number] [facility] 02/24/2019 Routine OB Satellites Roque Guillermo MD [address] [facility] [id number] [place] [address] [phone] Visit Faculty, [facility] 02/27/2019 Routine OB Satellites 2, Kinjal Nst Visit Ultrasound 02/27/2019 Routine OB Satellites Risk, Visit Dhi-Mfndz-Ut/High 03/13/2019 Camera Control Operator Visit Maternal Anival, Tari Sunshine MD [address] [facility] [id number] [place], [place] [phone] Medicine David Collier MD [address] [place] [phone] 2, [facility] Usg Room Health Maintenance Due Date Last Done Comments PNEUMOCOCCAL 0-64 YEARS COMBINED 2000 SERIES (1 of 1 - PPSV23) EYE EXAM 2004 LDL-C 2004 URINE MICROALBUMIN 2004 HPV VACCINES (3 - Female 3-dose 06/02/2011 02/03/2011, 12/01/2010 series) INFLUENZA VACCINE (#1) 2019 HgA1C 07/16/2019 01/13/2019, 11/28/2018, 11/28/2018 FOOT EXAM 11/29/2019 11/28/2018, 11/28/2018, 11/28/2018 CREATININE (SERUM) 02/14/2020 02/13/2019, 08/19/2018, 05/30/2018, Additional history exists CHLAMYDIA SCREENING 02/21/2020 02/20/2019, 08/05/2018, 08/29/2013, Additional history exists PAP SMEAR 08/05/2021 08/05/2018 DTaP,Tdap,and Td Vaccines (3 - Td) 01/13/2029 01/13/2019, 07/02/2008 documented as of this encounter Procedures Procedure Name Priority Date/Time Associated Diagnosis Comments NON-STRESS Routine 02/20/2019 4:06 Diabetes mellitus Results for this TEST PM CDT complicating procedure are in , antepartum the results section. GC & CHLAMYDIA Routine 02/20/2019 3:56 Supervision of high Results for this AMPLIFIED ASSAY PM CDT risk in procedure are in third trimester the results section. POCT URINALYSIS Routine 02/20/2019 2:46 Supervision of high Results for this PM CDT risk in procedure are in third trimester the results Diabetes mellitus section. complicating , antepartum documented in this encounter Results NON-STRESS TEST (02/20/2019 4:06 PM CDT) Specimen Narrative Performed At NST reactive and reassuring, irregular ctx noted PACS Performing Organization Address City/State/Zipcode Phone Number PACS GC & CHLAMYDIA AMPLIFIED ASSAY (02/20/2019 3:56 PM CDT) C. trachomatis Nucleic NEGATIVE Negative [facility] N. gonorrhoeae Nucleic NEGATIVE Negative [facility] Specimen Urine - URINE, UNSPECIFIED SOURCE Performing Organization Address City/[facility] Phone Number [facility] CLIA: [id number], [address] [place] [address] [phone] [facility] POCT URINALYSIS W SPECIFIC GRAVITY (02/20/2019 2:46 PM CDT) POCT U SP GRAV . 1.005 - 1.025 mg/dl POCT PH U 6 5 - 8 mg/dl POCT U LEUK EST 1+ Negative - Negative POCT U NIT Neg Negative - Negative POCT U PROT Trace Negative - Negative POCT U GLU Neg Negative - Negative POCT U KETONE Small Negative - Negative POCT U UROBILI . 0.2 - 1 mg/dl POCT U BILI . Negative - Negative POCT U BLD Neg Negative - Negative POCT U COLOR POCT U APPEAR Specimen Urine - URINE, CLEAN CATCH documented in this encounter Visit Diagnoses Diagnosis Polyhydramnios, antepartum, single or unspecified fetus - Primary Supervision of high risk in third trimester Unspecified high-risk Diabetes mellitus complicating , antepartum Diabetes mellitus, antepartum Anemia of mother in , antepartum Anemia, antepartum Rh negative state in antepartum period Rhesus isoimmunization affecting management of mother, antepartum condition Macrosomia Exceptionally large baby relating to long gestation documented in this encounter Insurance Payer Benefit Plan / Subscriber ID Effective Phone Address Type Group [facility] xxxxxxxxx 2018-Tequila P.OMayur LUNA Medicaid HEALTH [facility] - [employer] nt [id number] MANAGED MEDICAID [place], [place] MED[place]ID [phone] documented as of this encounter Advance Directives Name Relationship Healthcare Agent Communication Relationship Mona Beasley Mother Primary healthcare agent
--- OUTSIDE RECORDS SUMMARY | 2019-06-11 22:09 | XMS REPORT | Summary of Care ---
:1995 Author Organization [facility] Address [address] [place] [address] Care Team Providers Name Role Phone Joe Hagen MD Consulting Physician Priti Rothman Primary Care Provider Reason for Visit Reason Comments Care NON-STRESS TEST Encounter Details Date Type Department Care Team Description 02/27/2019 Routine [facility]- Priti Rothman [address] [place] [address] Diabetes mellitus complicating , antepartum ( Primary Dx); Visit Sterling Butcher-Rmchp-Np/High Supervision of high risk in third trimester; [address] Polyhydramnios, antepartum, single or unspecified fetus; [place], [place] Anemia of mother in , antepartum; [address] Rh negative state in antepartum period; [phone] Macrosomia Allergies No Known Allergiesdocumented as of this encounter (statuses as of 02/27/2019) Medications Medication Sig Dispensed Refills Start Date End Date Status blood sugar diagnostic Use as directed 1 Box 08/13/2018 Active (FREESTYLE LITE STRIPS) stripIndications: Diet controlled gestational diabetes mellitus (GDM), antepartum lancets 17 gauge Use as directed 1 Each 10 08/13/2018 Active MiscIndications: Diet controlled gestational diabetes mellitus (GDM), antepartum vit Take 1 Packet by 30 Each 08/13/2018 Active 23-bxpj-bsegz-dha mouth daily. (SELECT-OB + DHA) 29 mg [...] as of this encounter (statuses as of 02/27/2019) Active Problems Problem Noted Date Polyhydramnios, antepartum complication 02/06/2019 Overview: NST x2 weekly Anemia 01/30/2019 Diabetes mellitus complicating , antepartum 12/30/2018 Macrosomia 12/25/2018 Rh negative state in antepartum period 08/07/2018 Estimated Date of Delivery Comments Yes 03/28/2019 Based on last menstrual period of 06/21/2018 (Exact Date) documented as of this encounter (statuses as of 02/27/2019) Resolved Problems Problem Noted Date Resolved Date [...] as of this encounter (statuses as of 02/27/2019) Immunizations Name Administration Dates Next Due HPV [...] Sign Reading Time Taken Comments Blood Pressure 107/65 02/27/2019 1:07 PM CDT Pulse 87 02/27/2019 1:07 PM CDT Temperature 36.2 C (97.2 F) 02/27/2019 1:07 PM CDT Respiratory Rate 16 02/27/2019 1:07 PM CDT Oxygen Saturation - - Inhaled Oxygen Concentration - - Weight 77.4 kg (170 lb 9 oz) 02/27/2019 1:07 PM CDT Height 167.6 cm (5' 6") 02/27/2019 1:07 PM CDT Body Mass Index 27.53 02/27/2019 1:07 PM CDT documented in this encounter Progress Notes Priti Rothman - 02/27/2019 1:30 PM CDT Chief complaint: Chief Complaint Patient presents with Care NON-STRESS TEST HPI Polina Beasley is a 23 year old HF who is 35w6d with IUP. Her Estimated Date of Delivery: 03/28/19 by LMP. Denies headache, n/v,visual changes , sob, cp, ruq pain, bleeding,lof and ctxs. Has +FM. Histories OB History Para Term AB Living [...] file Gets together: Not on file Attends [employer] service: Not on file Active member of [...] None Comment: last sexual intercourse 07/29/2018 Labs Labs are pending. Radiology No new radiology. Allergies Polina has No Known Allergies. Medications Polina has a current medication list which includes the following prescription (s): docusate, ascorbic acid (vitamin c), ferrous sulfate, blood-glucose meter, blood sugar diagnostic, lancets, and vit 30-aanb-jqvxk-dha. Review of Systems See HPI BP 107/65 (BP Location: Right arm, Patient Position: Sitting, BP CUFF SIZE: Adult Small) | Pulse 87 | Temp 36.2 C (97.2 F) (Oral) | Resp 16 | Ht 5' 6 " (1.676 m) | Wt 170 lb 9 oz (77.4 kg) | LMP 06/21/2018 (Exact Date) | BMI 27.53 kg/m Pregravid BMI: 24.1 Physical Exam CONSTITUTIONAL: no apparent distress, appearing age-appropriate. GASTROINTESTINAL: abdomen soft, nontender, . NEUROLOGICAL/PSYCHIATRIC: alert, awake, and oriented x 3. Normal mood and affect. EXTREMITIES: No calf tenderness bilaterally.no pitting edema bilaterally. Musculoskeletal: no clubbing, cyanosis or edema, peripheral pulses 2+ in all extremities NST cat I Assessment/Plan at 35w6d Polyhydramnios affecting in third trimester (primary encounter diagnosis) Comment:noted on recent usg. NST reactive and reassuring Plan:2xwkly NST, monitor BS F/u usg scheduled 03/13/19 Diabetes mellitus complicating , antepartum Comment:on diet only. A1C 5.1% Pt forgot to bring glucometer or BS log today. Fingerstick in clinic today is 98. continue diet only NST today cat I Plan: POCT URINALYSIS W SPECIFIC GRAVITY Anemia of mother in , antepartum Comment: HGB Date Value 02/06/2019 9.8 g/dL (L) 12/01/2010 11.8 G/DL Plan:continue extra iron andrepeat cbc at 35-36wks Rh negative state in antepartum period Comment:s/p rhogam 01/13/19 Plan:exp mtmg Macrosomia Comment:>97.5% Plan:f/u usg scheduled for 03/13/19 Supervision of high risk in third trimester Comment:35w6d Plan: POCT URINALYSIS W SPECIFIC GRAVITY Routine care GBBS done today Warnings and poc discussed Will schedule delivery plan after next usg on 03/13/19 Strict diet warnings given/PTL warnings/kick count instructions given This visit did not involve counseling and coordination that comprised more than 50% of the visit time. documented in this encounter Plan of Treatment Date Type Specialty Care Team Description 02/27/2019 Ancillary Procedure OB Satellites Priti Rothman Arrived [address] [place] [address] [phone] 03/04/2019 Routine OB Satellites 1, Ang-Rmchp Nst Visit Ultrasound 03/04/2019 Routine OB Satellites Akinsipe, Dianne Visit C, [facility] [address] [place], [place] [address] 03/07/2019 Routine OB Satellites Akinsipe, Dianne Visit C, [facility] [address] [place], [place] [id number] 03/13/2019 Health Careers Instructor Visit Maternal Anival, Tari Sunshine MD [address] [facility] [id number] [place] [address] Medicine David Collier MD [address] [place] [address] 2, [facility] Usg Room Name Type Priority Associated Diagnoses Date/Time GROUP B STREPTOCOCCUS BY LAB Routine Supervision of high risk 02/27/2019 1 :31 PM PCR in third CDT trimester Health Maintenance Due Date Last Done Comments [...] Priority Date/Time Associated Diagnosis Comments NON-STRESS Routine 02/27/2019 1:55 Diabetes mellitus Results for this TEST PM CDT complicating procedure are in , antepartum the results Polyhydramnios, section. antepartum, single or unspecified fetus POCT GLUCOSE(AGE Routine 02/27/2019 1:48 Diabetes mellitus Results for this >30DAYS) PM CDT complicating procedure are in , antepartum the results section. POCT URINALYSIS Routine 02/27/2019 1:09 Supervision of high Results for this PM CDT risk in procedure are in third trimester the results Diabetes mellitus section. complicating , antepartum documented in this encounter Results NON-STRESS TEST (02/27/2019 1:55 PM CDT) Specimen Narrative Performed At Cat I PACS Performing Organization Address City/State/Zipcode Phone Number PACS POCT GLUCOSE(AGE >30DAYS) (02/27/2019 1:48 PM CDT) POCT Glu (age>30days) 78 70 - 110 mg/dL Specimen Blood - CAPILLARY POCT URINALYSIS W SPECIFIC GRAVITY (02/27/2019 1:09 PM CDT) POCT U SP GRAV . 1.005 - 1.025 mg/dl POCT PH U 7 5 - 8 mg/dl POCT U LEUK EST trace Negative - Negative POCT U NIT neg Negative - Negative POCT U PROT neg Negative - Negative POCT U GLU neg Negative - Negative POCT U KETONE neg Negative - Negative POCT U UROBILI . 0.2 - 1 mg/dl POCT U BILI . Negative - Negative POCT U BLD neg Negative - Negative POCT U COLOR POCT U APPEAR Specimen Urine - URINE, CLEAN CATCH documented in this encounter Visit Diagnoses Diagnosis Diabetes mellitus complicating , antepartum - Primary Diabetes mellitus, antepartum Supervision of high risk in third trimester Unspecified high-risk Polyhydramnios, antepartum, single or unspecified fetus Anemia of mother in , antepartum Anemia, antepartum Rh negative state in antepartum period Rhesus isoimmunization affecting management of mother, antepartum condition Macrosomia Exceptionally large baby relating to long gestation documented in this encounter Insurance Payer Benefit Plan / Subscriber ID Effective Phone Address Type Group Dates [facility] xxxxxxxxx 2018-Tequila LUNA Medicaid HEALTH [employer] - [id number] MANAGED MEDICAID [place], [place]ID [phone] documented as of this encounter Advance Directives Name Relationship Healthcare Agent Communication Relationship Mona Beasley Mother Primary healthcare agent
--- OUTSIDE RECORDS SUMMARY | 2019-06-11 22:09 | XMS REPORT | Summary of Care ---
:1995 Author Organization [facility] Address [address] [place] [id number] Care Team Providers Name Role Phone Joe Hagen MD Consulting Physician Dianne Marshall [facility] Primary [facility] Provider Reason for Visit Reason Comments Care NON-STRESS TEST Encounter Details Date Type Department Care Team Description 03/04/2019 Routine [facility]- [place], Supervision of high risk in third trimester (Primary Dx); Visit Everly Dianne Sellers ANA CRISTINA Polyhydramnios, antepartum, single or unspecified fetus; [address] Rh negative state in antepartum period; [facility] Diabetes mellitus complicating , antepartum [phone] [facility] A [phone] [place] [address] Allergies No Known Allergiesdocumented as of this encounter (statuses as of 03/04/2019) Medications Medication Sig Dispensed Refills Start Date End Date Status blood sugar diagnostic Use as directed 1 Box 08/13/2018 Active (FREESTYLE LITE STRIPS) stripIndications: Diet controlled gestational diabetes mellitus (GDM), antepartum lancets 17 gauge Use as directed 1 Each 08/13/2018 Active MiscIndications: Diet controlled gestational diabetes mellitus (GDM), antepartum vit Take 1 Packet by 30 Each 6 08/13/2018 Active 35-hbcr-bzrla-dha mouth daily. (SELECT-OB + DHA) 29 mg [...] as of this encounter (statuses as of 03/04/2019) Active Problems Problem Noted Date Polyhydramnios, antepartum complication 02/06/2019 Overview: NST x2 weekly Anemia 01/30/2019 Diabetes mellitus complicating , antepartum 12/30/2018 Macrosomia 12/25/2018 Rh negative state in antepartum period 08/07/2018 Estimated Date of Delivery Comments Yes 03/28/2019 Based on last menstrual period of 06/21/2018 (Exact Date) documented as of this encounter (statuses as of 03/04/2019) Resolved Problems Problem Noted Date Resolved Date [...] as of this encounter (statuses as of 03/04/2019) Immunizations Name Administration Dates Next Due HPV [...] Sign Reading Time Taken Comments Blood Pressure 106/67 03/04/2019 9:06 AM CDT Pulse 92 03/04/2019 9:06 AM CDT Temperature 36.6 C (97.9 F) 03/04/2019 9:06 AM CDT Respiratory Rate 16 03/04/2019 9:06 AM CDT Oxygen Saturation - - Inhaled Oxygen Concentration - - Weight 77.7 kg (171 lb 6 oz) 03/04/2019 9:06 AM CDT Height 167.6 cm (5' 6") 03/04/2019 9:06 AM CDT Body Mass Index 27.66 03/04/2019 9:06 AM CDT documented in this encounter Progress Notes Dianne Marshall, WHCNP - 03/04/2019 8:15 AM CDT Chief complaint: Chief Complaint Patient presents with Care NON-STRESS TEST HPI CC: Follow Up Visit Polina Beasley is a 23 year old, , /White female. Patient's last menstrualperiod was 06/21/2018 (exact date). She is 36w4d with an intrauterine . Her estimated date [...] file Gets together: Not on file Attends episcopal service: Not on file Active member of [...] No new labs and Routine Visit on 02/27/2019 Component Date Value POCT U SP GRAV 02/27/2019 . POCT PH U 02/27/2019 7 POCT U LEUK EST 02/27/2019 trace POCT U NIT 02/27/2019 neg POCT U PROT 02/27/2019 neg POCT U GLU 02/27/2019 neg POCT U KETONE 02/27/2019 neg POCT U UROBILI 02/27/2019 . POCT U BILI 02/27/2019 . POCT U BLD 02/27/2019 neg Group B Streptococcus by* 02/27/2019 Negative POCT Glu (age>30days) 02/27/2019 78 Routine Visit on 02/27/2019 Component Date Value POCT GLU 02/27/2019 78 Routine Visit on 02/20/2019 Component Date Value POCT U SP GRAV 02/20/2019 . POCT PH U 02/20/2019 6 POCT U LEUK EST 02/20/2019 1+ POCT U NIT 02/20/2019 Neg POCT U PROT 02/20/2019 Trace POCT U GLU 02/20/2019 Neg POCT U KETONE 02/20/2019 Small POCT U UROBILI 02/20/2019 . POCT U BILI 02/20/2019 . POCT U BLD 02/20/2019 Neg C. trachomatis Nucleic A* 02/20/2019 Negative N. gonorrhoeae Nucleic A* 02/20/2019 Negative Routine Visit on 02/17/2019 Component Date Value POCT U SP GRAV 02/17/2019 . POCT PH U 02/17/2019 . POCT U LEUK EST 02/17/2019 . POCT U NIT 02/17/2019 . POCT U PROT 02/17/2019 Trace POCT U GLU 02/17/2019 Neg POCT U KETONE 02/17/2019 . POCT U UROBILI 02/17/2019 . POCT U BILI 02/17/2019 . POCT U BLD 02/17/2019 . Routine Visit on 02/13/2019 Component Date Value [...] 01/15/2019 negative POCT INFLUENZA B 01/15/2019 negative There may be more visits with results that are not included. Radiology No new radiology. Allergies Polina has No Known Allergies. Medications Polina has a current medication list which includes the following prescription (s): docusate, ascorbic acid (vitamin c), ferrous sulfate, blood-glucose meter, blood sugar diagnostic, lancets, and vit 19-gupb-feigl-dha. Review of Systems Constitutional: Negative. HENT: Negative. Eyes: Negative. Respiratory: Negative. Breasts: Negative. Cardiovascular: Negative. Gastrointestinal: Negative. Genitourinary: Negative. Musculoskeletal: Negative. Skin: Negative. Neurological: Negative. Psychiatric/Behavioral: Negative. Endocrine: Endocrine negative BP 106/67 (BP Location: Right arm, Patient Position: Sitting, BP CUFF SIZE: Adult Medium) | Pulse 92 | Temp 36.6 C (97.9 F) (Oral) | Resp 16 | Ht 5 ' 6" (1.676 m) | Wt 171 lb 6 oz (77.7 kg) | LMP 06/21/2018 (Exact Date) | BMI 27.66 kg/m Pregravid BMI: 24.1 Physical Exam PHYSICAL: General Exam: Neurological: Normal Abdomen: Normal gravid Extremities: Normal Pelvic Exam: Uterus: 36 Weeks Assessment/Plan Return to clinic in 1 weeks. 2x weekly nst Denies zika virus risk, signs and symptoms such as fever,rash,joint pain, conjunctivitis (red eyes),muscle pain, headaches; outside [place] travel to areas affected by zika, and FOB exposure to zika. Educated on use of mosquito repellent. NST: cat 1, reactive/reassuring, no ctx, +accels, neg decls, moderate variability Supervision of high risk in third trimester (primary encounter diagnosis) Comment: routine Plan: CBC WITH DIFF, CBC WITH DIFFERENTIAL Polyhydramnios, antepartum, single or unspecified fetus Comment: 2x weekly nst Plan: continue nst, follow up usg scheduled Rh negative state in antepartum period Comment: no mgmt today Plan: address pp prn Diabetes mellitus complicating , antepartum Comment: no glucose log today patient reports glucose levels no higher than 100mgdl, reports last glucose check she did was last night Plan: patient advised to continue checking blood glucose, bring log on next visit POCT GLUCOSE TODAY, 80mgdl glucose check today in clinic This visit did not involve counseling and coordination that comprised more than 50% of the visit time. MARY ANNE Arias 03/04/2019 9:41 AM documented in this encounter Plan of Treatment Date Type Specialty Care Team Description 03/06/2019 Routine OB Satellites 1, Kinjal Nst Visit Ultrasound 03/06/2019 Routine OB Satellites Dianne Marshall [facility] [address] [place] [address] [phone] 03/10/2019 Routine OB Satellites 1, Kinjal Nst Visit Ultrasound 03/10/2019 Routine OB Satellites Dianne Marshall Visit C, [facility] [address] [place] [address] [phone] 03/13/2019 Routine OB Satellites Tari Florian MD [address] [id number] Visit David Collier MD [address] [place] [address] 1, Kinjal Nst Ultrasound 03/13/2019 Routine OB Satellites Dianne Marshall Visit C, [facility] [address] [place], [place] [address] 03/13/2019 Cable Systems Installer Visit Maternal Tari Florian MD [address] [phone] Medicine David Collier MD [address] [place] [phone] 2, [facility] Usg Room 03/17/2019 Routine OB Satellites 2, [facility] Nst Visit Ultrasound 03/17/2019 Routine OB Satellites Faculty, [facility] Visit Mfm Name Type Priority Associated Diagnoses Date/Time CBC WITH DIFF LAB Routine Supervision of high risk 03/04/2019 9:07 AM CDT in third trimester CBC WITH DIFFERENTIAL LAB Routine Supervision of high risk 03/04/2019 9: 07 AM CDT in third trimester Health Maintenance Due Date Last Done [...] Procedure Name Priority Date/Time Associated Diagnosis Comments POCT GLUCOSE(AGE Routine 03/04/2019 10:27 Diabetes mellitus Results for this >30DAYS) AM CDT complicating procedure are in , antepartum the results section. POCT GLUCOSE Routine 03/04/2019 10:23 Results for this (AUTOMATED) AM CDT procedure are in the results section. NON-STRESS Routine 03/04/2019 10:11 Supervision of high Results for this TEST AM CDT risk in procedure are in third trimester the results section. documented in this encounter Results POCT GLUCOSE(AGE >30DAYS) (03/04/2019 10:27 AM CDT) POCT Glu (age>30days) 80 70 - 110 mg/dL Specimen Blood - CAPILLARY POCT GLUCOSE (AUTOMATED) (03/04/2019 10:23 AM CDT) POCT GLU 80 70 - 110 mg/dL [facility] NEGIN Specimen Blood Performing Organization Address City/State/Zipcode Phone Number INEZ KAM CLIA: [id number], [address] [place] [address] [place] NON-STRESS TEST (03/04/2019 10:11 AM CDT) Specimen Narrative Performed At NST: cat 1, reactive/reassuring, no ctx, +accels, neg decls, moderate PACS variability Performing Organization Address City/State/Zipcode Phone Number PACS documented in this encounter Visit Diagnoses Diagnosis Supervision of high risk in third trimester - Primary Unspecified high-risk Polyhydramnios, antepartum, single or unspecified fetus Rh negative state in antepartum period Rhesus isoimmunization affecting management of mother, antepartum condition Diabetes mellitus complicating , antepartum Diabetes mellitus, antepartum documented in this encounter Insurance Payer Benefit Plan / Subscriber ID Effective Phone Address Type Group [facility] xxxxxxxxx 2018-Tequila P.OMayur LUNA Medicaid HEALTH CHOICE - HEALTH CHOICE [id number] MANAGED MEDICAID [place], [place] MED[place] [phone] documented as of this encounter Advance Directives Name Relationship Healthcare Agent Communication Relationship Mona Beasley Mother Primary healthcare agent
--- OUTSIDE RECORDS SUMMARY | 2019-06-11 22:09 | XMS REPORT | Summary of Care ---
:1995 Author Organization [facility] Address [address] [place] [address] Care Team Providers Name Role Phone Joe Hagen MD Consulting Physician Priti Rothman Primary Care Provider Reason for Visit Reason Comments Care NON-STRESS TEST Encounter Details Date Type Department Care Team Description 02/27/[address] [facility]- Priti Rothman [address] [place] [address] Diabetes mellitus complicating , antepartum ( Primary Dx); Visit Sterling Butcher-Rmchp-Np/High Supervision of high risk in third trimester; [address] Polyhydramnios, antepartum, single or unspecified fetus; [place], [place] Anemia of mother in , antepartum; [address] Rh negative state in antepartum period; [phone] Macrosomia Allergies No Known Allergiesdocumented as of [...] 1 Packet by 30 Each 08/13/2018 Active 19-ekga-krwxn-dha mouth daily. (SELECT-OB + DHA) 29 mg [...] meter, blood sugar diagnostic, lancets, and vit 06-sbuy-qzlcr-dha. Review of Systems See HPI BP 107/65 [...] Treatment Date Type Specialty Care Team Description 03/04/2019 Routine OB Satellites 1, Ang-Rmchp Nst Visit Ultrasound 03/04/2019 Routine OB Satellites Akinsipe, [facility] [address] [place] [address] [phone] 03/06/2019 Routine OB Satellites 1, Ang-Rmchp Nst Visit Ultrasound 03/06/2019 Routine OB Satellites Akinsipe, [facility] [address] [place] [address] [phone] 03/10/2019 Routine OB Satellites 1, Ang-Rmchp Nst Visit Ultrasound 03/10/2019 Routine OB Satellites Akinsipe, Dianne Visit C, [facility] [address] [place] [address] [phone] 03/13/2019 Routine OB Satellites Tari Florian MD [address] [phone] Visit David Collier MD [address] [place] [phone] 1, Ang-Rmchp Nst Ultrasound 03/13/2019 Routine OB Satellites Akinsiroby, Dianne [facility] C[facility] [address] [place] [address] [phone] 03/13/2019 Pulverizer Feeder Visit Maternal Tari Florian MD [address] [phone] Medicine David Collier MD [address] [place] [address] 2, [facility] Usg Room Name Type Priority Associated [...] ID Effective Phone Address Type Group [facility] xxxxxxxxx 2018-Tequila LUNA Medicaid HEALTH [employer] - HEALTH [employer] [id number] MANAGED MEDICAID [place], [place] [phone] documented as of this encounter Advance Directives Name Relationship Healthcare Agent Communication Relationship Mona Beasley Mother Primary healthcare agent
--- OUTSIDE RECORDS SUMMARY | 2019-06-11 22:10 | XMS REPORT | Summary of Care ---
:1995 Author Organization [facility] Address [address] [place] [address] Care Team Providers Name Role Phone Joe Hagen MD Consulting Physician Dianne Marshall ANA CRISTINA Primary Care Provider Reason for Visit Reason Comments Care NON-STRESS TEST Encounter Details Date Type Department Care Team Description 03/13/2019 Routine [facility]- [place], Supervision of high risk in third trimester (Primary Dx); Visit [place] Dianne Sellers ANA CRISTINA Diabetes mellitus complicating , antepartum; [address] Rh negative state in antepartum period; [facility] Polyhydramnios, antepartum, single or unspecified fetus [phone] [facility] [phone] [place] [address] Allergies No Known Allergiesdocumented as of this encounter (statuses as of 03/13/2019) Medications Medication Sig Dispensed Refills Start Date End Date Status blood sugar diagnostic Use as directed 1 Box 08/13/2018 Active (FREESTYLE LITE STRIPS) stripIndications: Diet controlled gestational diabetes mellitus (GDM), antepartum lancets 17 gauge Use as directed 1 Each 08/13/2018 Active MiscIndications: Diet controlled gestational diabetes mellitus (GDM), antepartum vit Take 1 Packet by 30 Each 6 08/13/2018 Active 15-jahs-utxip-dha mouth daily. (SELECT-OB + DHA) 29 mg [...] as of this encounter (statuses as of 03/13/2019) Active Problems Problem Noted Date Polyhydramnios, antepartum complication 02/06/2019 Overview: NST x2 weekly Anemia 01/30/2019 Diabetes mellitus complicating , antepartum 12/30/2018 Macrosomia 12/25/2018 Rh negative state in antepartum period 08/07/2018 Estimated Date of Delivery Comments Yes 03/28/2019 Based on last menstrual period of 06/21/2018 (Exact Date) documented as of this encounter (statuses as of 03/13/2019) Resolved Problems Problem Noted Date Resolved Date [...] as of this encounter (statuses as of 03/13/2019) Immunizations Name Administration Dates Next Due HPV [...] Sign Reading Time Taken Comments Blood Pressure 126/74 03/13/2019 9:06 AM CDT Pulse 125 03/13/2019 9:06 AM CDT Temperature 36.3 C (97.3 F) 03/13/2019 9:06 AM CDT Respiratory Rate 16 03/13/2019 9:06 AM CDT Oxygen Saturation - - Inhaled Oxygen Concentration - - Weight 78.6 kg (173 lb 6 oz) 03/13/2019 9:06 AM CDT Height 167.6 cm (5' 6") 03/13/2019 9:06 AM CDT Body Mass Index 27.98 03/13/2019 9:06 AM CDT documented in this encounter Progress Notes Dianne Marshall, WHCNP - 03/13/2019 9:00 AM CDT Chief complaint: Chief Complaint Patient presents with Care NON-STRESS TEST HPI CC: Follow Up Visit Polina Beasley is a 24 year old, , /White female. Patient's last menstrualperiod was 06/21/2018 (exact date). She is 37w6d with an intrauterine . Her estimated date [...] file Gets together: Not on file Attends hindu service: Not on file Active member of [...] No new labs and Routine Visit on 03/10/2019 Component Date Value POCT U SP GRAV 03/10/2019 . POCT PH U 03/10/2019 . POCT U LEUK EST 03/10/2019 . POCT U NIT 03/10/2019 . POCT U PROT 03/10/2019 Trace POCT U GLU 03/10/2019 Neg POCT U KETONE 03/10/2019 . POCT U UROBILI 03/10/2019 . POCT U BILI 03/10/2019 . POCT U BLD 03/10/2019 . Routine Visit on 03/06/2019 Component Date Value POCT U SP GRAV 03/06/2019 . POCT PH U 03/06/2019 . POCT U LEUK EST 03/06/2019 . POCT U NIT 03/06/2019 . POCT U PROT 03/06/2019 Trace POCT U GLU 03/06/2019 Neg POCT U KETONE 03/06/2019 .. POCT U UROBILI 03/06/2019 . POCT U BILI 03/06/2019 . POCT U BLD 03/06/2019 . Routine Visit on 03/04/2019 Component Date Value WBC 03/04/2019 8.31 RBC 03/04/2019 4.23 HGB 03/04/2019 10.5* HCT 03/04/2019 34.2* MCV 03/04/2019 80.9 MCH 03/04/2019 24.8* MCHC 03/04/2019 30.7* RDW-SD 03/04/2019 64.0* RDW-CV 03/04/2019 22.5* PLT 03/04/2019 246 MPV 03/04/2019 11.4 NRBC/100 WBC 03/04/2019 0.0 NRBC x10^3 03/04/2019 <0.01 GRAN MAT (NEUT) % 03/04/2019 64.8 IMM GRAN % 03/04/2019 0.80 LYMPH % 03/04/2019 26.0 MONO % 03/04/2019 6.7 EOS % 03/04/2019 1.1 BASO % 03/04/2019 0.6 GRAN MAT x10^3(ANC) 03/04/2019 5.38 IMM GRAN x10^3 03/04/2019 0.07* LYMPH x10^3 03/04/2019 2.16 MONO x10^3 03/04/2019 0.56 EOS x10^3 03/04/2019 0.09 BASO x10^3 03/04/2019 0.05 POCT Glu (age>30days) 03/04/2019 80 POCT GLU 03/04/2019 80 Routine Visit on 02/27/2019 Component Date Value [...] U 02/03/2019 100.0 Protein/Creatinine Ratio* 02/03/2019 0.2 There may be more visits with results that are not included. Radiology Radiology pending. Allergies Polina has No Known Allergies. Medications Polina has a current medication list which includes the following prescription (s): docusate, ascorbic acid (vitamin c), ferrous sulfate, blood-glucose meter, blood sugar diagnostic, lancets, and vit 55-zgul-kfmvw-dha. Review of Systems Constitutional: Negative. HENT: Negative. Eyes: Negative. Respiratory: Negative. Breasts: Negative. Cardiovascular: Negative. Gastrointestinal: Negative. Genitourinary: Negative. Musculoskeletal: Negative. Skin: Negative. Neurological: Negative. Psychiatric/Behavioral: Negative. Endocrine: Endocrine negative BP 126/74 (BP Location: Right arm, Patient Position: Sitting, BP CUFF SIZE: Adult Medium) | Pulse 125 | Temp 36.3 C (97.3 F) (Oral) | Resp 16 | Ht 5 ' 6" (1.676 m) | Wt 173 lb 6 oz (78.6 kg) |LMP 06/21/2018 (Exact Date) | BMI 27.98 kg/m Pregravid BMI: 24.1 Physical Exam PHYSICAL: General Exam: Neurological: Normal Abdomen: Normal gravid Extremities: Normal Assessment/Plan Return to clinic in 1 weeks. Denies zika virus risk, signs and symptoms such as fever,rash,joint pain, conjunctivitis (red eyes),muscle pain, headaches; outside [place] travel to areas affected by zika, and FOB exposure to zika. Educated on use of mosquito repellent. NST: cat 1, reactive/reassuring, no ctx, +accels, neg decls, moderate variability Supervision of high risk in third trimester (primary encounter diagnosis) Comment: routine Plan: POCT URINALYSIS W SPECIFIC GRAVITY Diabetes mellitus complicating , antepartum Comment: forgot log today but brought glucometer, reporting fasting glucose bw 80-91mgdl and after meal glucose levels ranging from 79-94 mgdl Plan: POCT URINALYSIS W SPECIFIC GRAVITY, continue checking blood glucose bring log on next visit Rh negative state in antepartum period Comment: no mgmt today Plan: address pp prn Polyhydramnios, antepartum, single or unspecified fetus Comment: 2x weekly nst Plan: continue 2x weekly nst This visit did not involve counseling and coordination that comprised more than 50% of the visit time. MARY ANNE Arias 03/13/2019 10:24 AM documented in this encounter Plan of Treatment Date Type Specialty Care Team Description 03/13/2019 Ancillary Procedure OB Satellites Dianne Marshall WHCNP [address], [place] [address] 03/13/2019 Sediment Remediation Consultant Visit Maternal Anival, Tari Sunshine MD Medicine David Collier MD [address] [place] [address] Tea Mireles [address] [facility] [id number] [place], [place] [id number] 2, [facility] Usg Room 03/17/2019 Routine OB Satellites [facility] Nst Visit Ultrasound 03/17/2019 Routine OB Satellites Faculty, [facility] Visit Mfm 03/20/2019 Routine OB Satellites 2, [facility] Nst Visit Ultrasound 03/20/2019 Routine OB Satellites Dianne Marshall Visit C, [facility] [address] [place] [address] [phone] Health Maintenance Due Date Last Done Comments [...] Priority Date/Time Associated Diagnosis Comments NON-STRESS Routine 03/13/2019 10:26 Supervision of high Results for this TEST AM CDT risk in procedure are in third trimester the results Polyhydramnios, section. antepartum, single or unspecified fetus POCT URINALYSIS Routine 03/13/2019 9:08 Supervision of high Results for this AM CDT risk in procedure are in third trimester the results Diabetes mellitus section. complicating , antepartum documented in this encounter Results NON-STRESS TEST (03/13/2019 10:26 AM CDT) Specimen Narrative Performed At NST: cat 1, reactive/reassuring, no ctx, +accels, neg decls, moderate PACS variability Performing Organization Address City/State/Zipcode Phone Number PACS POCT URINALYSIS W SPECIFIC GRAVITY (03/13/2019 9:08 AM CDT) POCT U SP GRAV . [...] mellitus complicating , antepartum Diabetes mellitus, antepartum Rh negative state in antepartum period Rhesus isoimmunization affecting management of mother, antepartum condition Polyhydramnios, antepartum, single or unspecified fetus documented in this encounter Insurance Payer Benefit Plan / Subscriber ID Effective Phone Address Type Group [facility] xxxxxxxxx 2018-Tequila P.Chidi LUNA Medicaid HEALTH [employer] [id number] MANAGED MEDICAID [place], [place] MEDICAID [phone] documented as of this encounter Advance Directives Name Relationship Healthcare Agent Communication Relationship Mona Beasley Mother Primary healthcare agent
--- OUTSIDE RECORDS SUMMARY | 2019-06-11 22:10 | XMS REPORT | Summary of Care ---
:1995 Author Organization [facility] Address [address] [place] [address] Care Team Providers Name Role Phone Joe Hagen MD Consulting Physician Dianne Marshall ANA CRISTINA Primary Care Provider Reason for Visit Reason Comments Care NON-STRESS TEST Encounter Details Date Type Department Care Team Description 03/06/2019 Routine [facility]- [place], Supervision of high risk in third trimester (Primary Dx); Visit [place] Dianne Sellers ANA CRISTINA Diabetes mellitus complicating , antepartum; [address] Rh negative state in antepartum period; [facility] Polyhydramnios, antepartum, single or unspecified fetus [phone] [facility] [phone] [place] [address] Allergies No Known Allergiesdocumented as of this encounter (statuses as of 03/06/2019) Medications Medication Sig Dispensed Refills Start Date End Date Status blood sugar diagnostic Use as directed 1 Box 08/13/2018 Active (FREESTYLE LITE STRIPS) stripIndications: Diet controlled gestational diabetes mellitus (GDM), antepartum lancets 17 gauge Use as directed 1 Each 08/13/2018 Active MiscIndications: Diet controlled gestational diabetes mellitus (GDM), antepartum vit Take 1 Packet by 30 Each 6 08/13/2018 Active 00-jqxk-zptxm-dha mouth daily. (SELECT-OB + DHA) 29 mg [...] as of this encounter (statuses as of 03/06/2019) Active Problems Problem Noted Date Polyhydramnios, antepartum complication 02/06/2019 Overview: NST x2 weekly Anemia 01/30/2019 Diabetes mellitus complicating , antepartum 12/30/2018 Macrosomia 12/25/2018 Rh negative state in antepartum period 08/07/2018 Estimated Date of Delivery Comments Yes 03/28/2019 Based on last menstrual period of 06/21/2018 (Exact Date) documented as of this encounter (statuses as of 03/06/2019) Resolved Problems Problem Noted Date Resolved Date [...] as of this encounter (statuses as of 03/06/2019) Immunizations Name Administration Dates Next Due HPV [...] Sign Reading Time Taken Comments Blood Pressure 112/74 03/06/2019 2:05 PM CDT Pulse 105 03/06/2019 2:05 PM CDT Temperature 36.4 C (97.5 F) 03/06/2019 2:05 PM CDT Respiratory Rate 16 03/06/2019 2:05 PM CDT Oxygen Saturation - - Inhaled Oxygen Concentration - - Weight 80 kg (176 lb 5 oz) 03/06/2019 2:05 PM CDT Height 167.6 cm (5' 6") 03/06/2019 2:05 PM CDT Body Mass Index 28.46 03/06/2019 2:05 PM CDT documented in this encounter Progress Notes Dianne Marshall, WHCNP - 03/06/2019 2:00 PM CDT Chief complaint: Chief Complaint Patient presents with Care NON-STRESS TEST HPI CC: Follow Up Visit Polina Beasley is a 23 year old, , /White female. Patient's last menstrualperiod was 06/21/2018 (exact date). She is 36w6d with an intrauterine . Her estimated date [...] file Gets together: Not on file Attends latter day service: Not on file Active member of [...] No new labs and Routine Visit on 03/04/2019 Component Date Value [...] 01/17/2019 Negative POCT INFLUENZA B 01/17/2019 Negative There may be more visits with results that are not included. Radiology No new radiology. Allergies Polina has No Known Allergies. Medications Polina has a current medication list which includes the following prescription (s): docusate, ascorbic acid (vitamin c), ferrous sulfate, blood-glucose meter, blood sugar diagnostic, lancets, and vit 50-hphk-dfete-dha. Review of Systems Constitutional: Negative. HENT: Negative. Eyes: Negative. Respiratory: Negative. Breasts: Negative. Cardiovascular: Negative. Gastrointestinal: Negative. Genitourinary: Negative. Musculoskeletal: Negative. Skin: Negative. Neurological: Negative. Psychiatric/Behavioral: Negative. Endocrine: Endocrine negative BP 112/74 (BP Location: Right arm, Patient Position: Sitting, BP CUFF SIZE: Adult Medium) | Pulse 105 | Temp 36.4 C (97.5 F) (Oral) | Resp 16 | Ht 5 ' 6" (1.676 m) | Wt 176 lb 5 oz (80 kg) | LMP 06/21/2018 (Exact Date) | BMI 28.46 kg/m Pregravid BMI: 24.1 Physical Exam PHYSICAL: General Exam: Neurological: Normal Abdomen: Normal gravid Extremities: Normal Pelvic Exam: Uterus: 37 Weeks Assessment/Plan Return to clinic in 1 weeks. NST: cat 1, reactive/reassuring, no ctx, +accels, neg decls, moderate variability Denies zika virus risk, signs and symptoms such as fever,rash,joint pain, conjunctivitis (red eyes),muscle pain, headaches; outside [place] travel to areas affected by zika, and FOB exposure to zika. Educated on use of mosquito repellent. Supervision of high risk in third trimester (primary encounter diagnosis) Comment: routine Plan: POCT URINALYSIS W SPECIFIC GRAVITY Diabetes mellitus complicating , antepartum Comment: glucose log today 0/2 before meals and 0/3 after meals elevated blood sugar levels Plan: POCT URINALYSIS W SPECIFIC GRAVITY Rh negative state in antepartum period Comment: no mgmt today Plan: address prn Polyhydramnios, antepartum, single or unspecified fetus Comment: 2x weekly nst Plan:nst today This visit did not involve counseling and coordination that comprised more than 50% of the visit time. MARY ANNE Arias 03/06/2019 2:51 PM documented in this encounter Plan of Treatment Date Type Specialty Care Team Description 03/06/2019 Ancillary Procedure OB Satellites Dianne Marshall Arrived C, ANA CRISTINA [address] [place] [address] 03/10/2019 Routine OB Satellites [place] [facility] Nst Visit Ultrasound 03/10/2019 Routine OB Satellites Dianne Marshall Visit C, [facility] [address] [place] [address] [phone] 03/13/2019 Routine OB Satellites Tari Florian MD Visit David Collier MD [address] [place] [phone] [place] [facility] Nst Ultrasound 03/13/2019 Routine OB Satellites Dianne Marshall Visit C, [facility] [address] [place] [address] [phone] 03/13/2019 Science Tutor Visit Maternal Tari Florian MD Medicine David Collier MD [address] [place] [address] 2, [facility] Mfm Usg Room 03/17/2019 Routine OB Satellites 2, [facility] Nst Visit Ultrasound 03/17/2019 Routine OB Satellites Faculty, [facility] Visit Mfm 03/20/2019 Routine OB Satellites 2, [facility] Nst Visit Ultrasound 03/20/2019 Routine OB Satellites [place], Dianne Visit [facility], [facility] [address] [place], [place] [address] Health Maintenance Due Date Last Done Comments [...] Priority Date/Time Associated Diagnosis Comments NON-STRESS Routine 03/06/2019 3:00 Polyhydramnios, Results for this TEST PM CDT antepartum, single or procedure are in unspecified fetus the results section. POCT URINALYSIS Routine 03/06/2019 2:15 Supervision of high Results for this PM CDT risk in procedure are in third trimester the results Diabetes mellitus section. complicating , antepartum documented in this encounter Results NON-STRESS TEST (03/06/2019 3:00 PM CDT) Specimen Narrative Performed At NST: cat 1, reactive/reassuring, no ctx, +accels, neg decls, moderate PACS variability Performing Organization Address City/State/Zipcode Phone Number PACS POCT URINALYSIS W SPECIFIC GRAVITY (03/06/2019 2:15 PM CDT) POCT U SP GRAV . 1.005 - 1.025 mg/dl POCT PH U . 5 - 8 mg/dl POCT U LEUK EST . Negative - Negative POCT U NIT . Negative - Negative POCT U PROT Trace Negative - Negative POCT U GLU Neg Negative - Negative POCT U KETONE .. Negative - Negative POCT U UROBILI . [...] Subscriber ID Effective Phone Address Type Group [facility] xxxxxxxxx 2018-Tequila LUNA Medicaid HEALTH CHOICE - HEALTH [employer] [id number] MANAGED MEDICAID [place], [place] MEDICAID [phone] documented as of this encounter Advance Directives Name Relationship Healthcare Agent Communication Relationship Mona Beasley Mother Primary healthcare agent
--- OUTSIDE RECORDS SUMMARY | 2019-06-11 22:10 | XMS REPORT | Summary of Care ---
:1995 Author [address] [facility] Address [address] [place] [address] Care Team Providers Name Role Phone Joe Hagen MD Consulting Physician [facility]ianne Marshall [facility] Primary [facility] Provider Reason for Visit Reason Comments Care NON-STRESS TEST Encounter Details Date Type Department Care Team Description 03/04/2019 Routine [facility]P- [place], Supervision of high risk in third trimester (Primary Dx); Visit [place] Dianne Sellers ANA CRISTINA Polyhydramnios, antepartum, single or unspecified fetus; [address] [place] [address] Rh negative state in antepartum period; [facility] Diabetes mellitus complicating , antepartum [phone] [facility] A [phone] [place] [address] Allergies No Known Allergiesdocumented as [...] Packet by 30 Each 6 08/13/2018 Active 03-uizj-wjecn-dha mouth daily. (SELECT-OB + DHA) 29 mg [...] meter, blood sugar diagnostic, lancets, and vit 79-igzv-mmmec-dha. Review of Systems Constitutional: Negative. HENT: Negative. [...] Routine OB Satellites Dianne Marshall Visit C, [facility] [address] [place] [address] [phone] 03/10/2019 Routine OB Satellites 1, [place] Nst Visit Ultrasound 03/10/2019 Routine OB Satellites Dianne Marshall Visit C, [facility] [address] [place] [address] [phone] 03/13/2019 Routine OB Satellites Tari Florian MD [address] [phone] Visit David Collier MD [address] [place] [address] 1, [place] Nst Ultrasound 03/13/2019 Routine OB Satellites Dianne Marshall Visit C, [facility] [address] [place], [place] [phone] 03/13/2019 Quality Control Inspector Visit Maternal Tari Florian MD [address] [phone] Medicine David Collier MD [address] [place] [phone] 2, [facility] Usg Room 03/17/2019 Routine OB Satellites 2, [place] Nst Visit Ultrasound 03/17/2019 Routine OB Satellites Faculty, [facility] Visit Mfm 03/20/2019 Routine [facility] Satellites 2, [facility] 03/20/2019 Routine OB Satellites Dianne Marshall Visit C, [facility] [address] [place] [address] [phone] Name Type Priority Associated Diagnoses Date/Time CBC [...] POCT GLU 80 70 - 110 mg/dL CHP KATHLEEN Specimen Blood Performing Organization Address City[facility] Phone Number [facility] CLIA: [id number], [address] [place] [address] [place] NON-STRESS TEST (03/04/2019 10:11 AM CDT) Specimen Narrative Performed At NST: cat 1, reactive/reassuring, no ctx, +accels, neg decls, moderate PACS variability Performing Organization Address [facility] Phone Number PACS documented in this encounter [...] Subscriber ID Effective Phone Address Type Group [facility] xxxxxxxxx 2018-Tequila [address] Medicaid HEALTH CHOICE - HEALTH CHOICE [id number] MANAGED MEDICAID [place], [place] MED[place]ID [phone] documented as of this encounter Advance Directives Name Relationship Healthcare Agent Communication Relationship Mona Beasley Mother Primary healthcare agent
--- OUTSIDE RECORDS SUMMARY | 2019-06-11 22:10 | XMS REPORT | Summary of Care ---
:1995 Author Organization [facility] Address [address] [place] [address] Care Team Providers Name Role Phone Joe Hagen MD Consulting Physician Dianne Marshall ANA CRISTINA Primary Care Provider Reason for Visit Reason Comments Care NON-STRESS TEST Encounter Details Date Type Department Care Team Description 03/10/2019 Routine [facility]- [place], Supervision of high risk in third trimester (Primary Dx); Visit [place] Dianne Sellers ANA CRISTINA Diabetes mellitus complicating , antepartum; [address] [place] Polyhydramnios, antepartum, single or unspecified fetus; [place], [place] ST Rh negative state in antepartum period [id number] [facility] A [phone] [place] [address] Allergies No Known Allergiesdocumented as of this encounter (statuses as of 03/10/2019) Medications Medication Sig Dispensed Refills Start Date End Date Status blood sugar diagnostic Use as directed 1 Box 08/13/2018 Active (FREESTYLE LITE STRIPS) stripIndications: Diet controlled gestational diabetes mellitus (GDM), antepartum lancets 17 gauge Use as directed 1 Each 08/13/2018 Active MiscIndications: Diet controlled gestational diabetes mellitus (GDM), antepartum vit Take 1 Packet by 30 Each 6 08/13/2018 Active 82-rdlq-sfrht-dha mouth daily. (SELECT-OB + DHA) 29 mg [...] as of this encounter (statuses as of 03/10/2019) Active Problems Problem Noted Date Polyhydramnios, antepartum complication 02/06/2019 Overview: NST x2 weekly Anemia 01/30/2019 Diabetes mellitus complicating , antepartum 12/30/2018 Macrosomia 12/25/2018 Rh negative state in antepartum period 08/07/2018 Estimated Date of Delivery Comments Yes 03/28/2019 Based on last menstrual period of 06/21/2018 (Exact Date) documented as of this encounter (statuses as of 03/10/2019) Resolved Problems Problem Noted Date Resolved Date [...] as of this encounter (statuses as of 03/10/2019) Immunizations Name Administration Dates Next Due HPV [...] Sign Reading Time Taken Comments Blood Pressure 118/78 03/10/2019 11:01 AM CDT Pulse 118 03/10/2019 11:01 AM CDT Temperature 36.6 C (97.9 F) 03/10/2019 11:01 AM CDT Respiratory Rate 16 03/10/2019 11:01 AM CDT Oxygen Saturation - - Inhaled Oxygen Concentration - - Weight 79.2 kg (174 lb 9 oz) 03/10/2019 11:01 AM CDT Height 167.6 cm (5' 6") 03/10/2019 11:01 AM CDT Body Mass Index 28.18 03/10/2019 11:01 AM CDT documented in this encounter Progress Notes Dianne Marshall, WHCNP - 03/10/2019 10:45 AM CDT Chief complaint: Chief Complaint Patient presents with Care NON-STRESS TEST HPI CC: Follow Up Visit Polina Beasley is a 23 year old, , /White female. Patient's last menstrualperiod was 06/21/2018 (exact date). She is 37w3d with an intrauterine . Her estimated date [...] No new labs and Routine Visit on 03/06/2019 Component Date Value [...] 01/20/2019 . POCT U BLD 01/20/2019 neg There may be more visits with results that are not included. Radiology No new radiology. Allergies Polina has No Known Allergies. Medications Polina has a current medication list which includes the following prescription (s): docusate, ascorbic acid (vitamin c), ferrous sulfate, blood-glucose meter, blood sugar diagnostic, lancets, and vit 93-pbld-hlily-dha. Review of Systems Constitutional: Negative. HENT: Negative. Eyes: Negative. Respiratory: Negative. Breasts: Negative. Cardiovascular: Negative. Gastrointestinal: Negative. Genitourinary: Negative. Musculoskeletal: Negative. Skin: Negative. Neurological: Negative. Psychiatric/Behavioral: Negative. Endocrine: Endocrine negative BP 118/78 (BP Location: Right arm, Patient Position: Sitting, BP CUFF SIZE: Adult Medium) | Pulse 118 | Temp 36.6 C (97.9 F) (Oral) | Resp 16 | Ht 5 ' 6" (1.676 m) | Wt 174 lb 9 oz (79.2 kg) |LMP 06/21/2018 (Exact Date) | BMI 28.18 kg/m Pregravid BMI: 24.1 Physical Exam PHYSICAL: [...] TEST Diabetes mellitus complicating , antepartum Comment: Patient reports only checking her blood sugar once yesterday value was 79mgdl, she reports she was sleep most of the day, and this morning glucose levels was 83mgdl Plan: POCT URINALYSIS W SPECIFIC GRAVITY Patient advised to check blood glucose as recommended and bring log on next visit, patient verbalized understanding Polyhydramnios, antepartum, single or unspecified fetus Comment: 2x weekly nst Plan: as needed mgmt Rh negative state in antepartum period Comment: Plan: as needed mgmt This visit did not involve counseling and coordination that comprised more than 50% of the visit time. MARY ANNE Arias 03/10/2019 1:52 PM documented in this encounter Plan of Treatment Date Type Specialty Care Team Description 03/13/2019 Routine OB Satellites Tari Florian MD Visit David Collier MD [address] [place] [phone] 1, [facility] Nst Ultrasound 03/13/2019 Routine OB Satellites Dianne Marshall WHCNP [address] [place], [place] [id number] 03/13/2019 Documentation Coordinator Visit Maternal Tari Florian MD Medicine David Collier MD [address] [place] [phone] 2, [facility] Usg Room 03/17/2019 Routine OB Satellites 2, [facility] Nst Visit Ultrasound 03/17/2019 Routine OB Satellites Faculty, [facility] Visit Mf 03/20/2019 Routine OB Satellites 2, [facility] Nst Visit Ultrasound 03/20/2019 Routine OB Satellites AkinsipeDianne Visit C, [facility] [address] [place] [address] [phone] Health Maintenance Due Date Last Done Comments [...] Priority Date/Time Associated Diagnosis Comments NON-STRESS Routine 03/10/2019 1:48 Supervision of high Results for this TEST PM CDT risk in procedure are in third trimester the results section. POCT URINALYSIS Routine 03/10/2019 11:02 Supervision of high Results for this AM CDT risk in procedure are in third trimester the results Diabetes mellitus section. complicating , antepartum documented in this encounter Results NON-STRESS TEST (03/10/2019 1:48 PM CDT) Specimen Narrative Performed At NST: cat 1, reactive/reassuring, no ctx, +accels, neg decls, moderate PACS variability Performing Organization Address City/State/Zipcode Phone Number PACS POCT URINALYSIS W SPECIFIC GRAVITY (03/10/2019 11:02 AM CDT) POCT U SP GRAV . [...] Address Type Group Dates [facility] xxxxxxxxx 2018-Tequila [place] Medicaid HEALTH CHOICE - HEALTH [place] [id number] MANAGED MEDICAID [place], [place] MEDICAID [id number] documented as of this encounter Advance Directives Name Relationship Healthcare Agent Communication Relationship Mona Beasley Mother Primary healthcare agent
--- OUTSIDE RECORDS SUMMARY | 2019-06-11 22:11 | XMS REPORT | Summary of Care ---
:1995 Author Organization [facility] Address [address] [place] [address] Care Team Providers Name Role Phone Joe Hagen MD Consulting Physician Dianne Marshall [facility] Primary Care Provider Encounter Details Date Type Department Care Team Description 03/17/2019 [facility] [place] Alice De La Paz, MACHINE SPLITTER [address] [facility] [address] [place] [address] [place], [place] [id number] Allergies No Known Allergiesdocumented as of this encounter (statuses as of 03/17/2019) Medications Medication Sig Dispensed Refills Start Date End Date Status blood sugar diagnostic Use as directed 1 Box 10 08/13/2018 Active (FREESTYLE LITE STRIPS) stripIndications: Diet controlled gestational diabetes mellitus (GDM), antepartum lancets 17 gauge Use as directed 1 Each 10 08/13/2018 Active MiscIndications: Diet controlled gestational diabetes mellitus (GDM), antepartum vit Take 1 Packet by 30 Each 6 08/13/2018 Active 71-canm-kzdng-dha mouth daily. (SELECT-OB + DHA) 29 mg [...] as of this encounter (statuses as of 03/17/2019) Active Problems Problem Noted Date Polyhydramnios, antepartum complication 02/06/2019 Overview: NST x2 weekly Anemia 01/30/2019 Diabetes mellitus complicating , antepartum 12/30/2018 Macrosomia 12/25/2018 Rh negative state in antepartum period 08/07/2018 Estimated Date of Delivery Comments Yes 03/28/2019 Based on last menstrual period of 06/21/2018 (Exact Date) documented as of this encounter (statuses as of 03/17/2019) Resolved Problems Problem Noted Date Resolved Date [...] as of this encounter (statuses as of 03/17/2019) Immunizations Name Administration Dates Next Due HPV [...] Treatment Date Type Specialty Care Team Description 03/17/2019 Routine Visit OB Satellites 2, [facility] Nst Ultrasound 03/17/2019 Routine Visit OB Satellites Faculty, [facility] Mfm 03/20/2019 Routine Visit [facility] Satellites 2, [facility] Nst Ultrasound 03/20/2019 Routine Visit OB Satellites [facility] Marshall[facility] [address] [place] [address] [phone] Health Maintenance Due Date Last Done Comments [...] Subscriber ID Effective Phone Address Type Group [facility] xxxxxxxxx 2018-Tequila [address] Medicaid HEALTH CHOICE - [place] [id number] [facility] MEDICAID [place], [place] MEDICAID [phone] documented as of this encounter Advance Directives Name Relationship Healthcare Agent Communication Relationship Mona Beasley Mother Primary healthcare agent
--- OUTSIDE RECORDS SUMMARY | 2019-06-11 22:11 | XMS REPORT | Summary of Care ---
:1994 Author Organization [facility] Address [address] [place] [address] Care Team Providers Name Role Phone Joe Hagen MD Consulting Physician Dianne Marshall [facility] Primary Care Provider Encounter Details Date Type Department Care Team Description 03/06/2019 Orders Only [facility] Doctor Unassigned, No [address] [facility] Name [place], [place] [id number] [place] [address] Allergies No Known Allergiesdocumented as of this [...] Packet by 30 Each 6 08/13/2018 Active 72-rnbi-smgtd-dha mouth daily. (SELECT-OB + DHA) 29 mg [...] Nst Ultrasound 03/17/2019 Routine Visit OB Satellites [place], [facility] 03/20/2019 Routine Visit OB Satellites 2, [facility] Nst Ultrasound 03/20/2019 Routine Visit OB Satellites Dianne Marshall, CNP [address] [place] [address] [phone] Health Maintenance Due Date Last Done Comments [...] Date/Time Associated Diagnosis Comments PATIENT QUESTIONNAIRE Routine 03/06/2019 12:01 AM CDT documented in this encounter Results Not on filedocumented in this encounter Insurance Payer Benefit Plan / Subscriber ID Effective Phone Address Type Group Dates [facility] xxxxxxxxx 2018-Tequila [address] Medicaid HEALTH CHOICE - HEALTH CHOICE nt [id number] MANAGED MEDICAID [place], [place] MEDICAID [phone] documented as of this encounter Advance Directives Name Relationship Healthcare Agent Communication Relationship Mona Jangl Mother Primary healthcare agent
--- OUTSIDE RECORDS SUMMARY | 2019-06-11 22:11 | XMS REPORT | Summary of Care ---
:1994 Author Organization [facility] Address [address] [place] [address] Care Team Providers Name Role Phone Joe Hagen MD Consulting Physician Dianne Marshall [facility] Primary Care Provider Reason for Visit Reason Comments ULTRASOUND (Routine) Status Reason Specialty Diagnoses / Referred By Referred To Procedures Contact Contact Authorized OG-OBSTETRICS & Diagnoses f/u growth diabetes wants *Laura* Priti [facility] GYNECOLOGY / Procedures CONSULT MATERNAL MEDICINE ULTRASOUND ULTRASOUND [address] Ultrasound[facility] Maternal [address] [facility] Medicine [place], [place] Clinics [address] [address] Phone: [address], [address] Floor [phone] [place], [place] Fax: [phone] Encounter Details Date Type Department Care Team Description 03/13/2019 Grain Inspector Visit [facility] Women's AnivalTari adler MD Diet controlled [facility] David Collier MD [address] [place] [address] gestational diabetes [facility] Tea Mireles [address] [facility] [id number] [phone] mellitus (GDM), [address] 2, [facility] Usg Room [address], [address] [place] [phone] Allergies No Known Allergiesdocumented as of this [...] Packet by 30 Each 6 08/13/2018 Active 67-xvrm-ybxdy-dha mouth daily. (SELECT-OB + DHA) 29 mg [...] Description 03/17/2019 Routine Visit [facility]ell[facility] 2, [facility] Ul[facility]ound 03/17/2019 Routine Visit OB Satellites [facility] 03/20/2019 Routine [facility] 03/20/2019 Routine Visit OB Satellites Dianne Marshall, WHCNP [address] [place], [place] [phone] Health Maintenance Due Date Last Done Comments [...] Results Not on filedocumented in this encounter Visit Diagnoses Diagnosis Diet controlled gestational diabetes mellitus (GDM), antepartum documented in this encounter Insurance Payer Benefit Plan / Subscriber ID Effective Phone Address Type Group [facility] xxxxxxxxx 2018-Tequila [address] Medicaid HEALTH CHOICE - HEALTH CHOICE [id number] MANAGED MEDICAID [place], [place] MED[place] [phone] documented as of this encounter Advance Directives Name Relationship Healthcare Agent Communication Relationship Mona Ayalaquivel Mother Primary healthcare agent
--- OUTSIDE RECORDS SUMMARY | 2019-06-11 22:11 | XMS REPORT | Summary of Care ---
:1994 Author Organization [facility] Address [address] [place] [address] Care Team Providers Name Role Phone Joe Hagen MD Consulting Physician Dianne Marshall [facility] Primary Care Provider Reason for Visit Reason Comments MFM Visit NON-STRESS TEST Encounter Details Date Type Department Care Team Description 03/17/2019 [facility] Collier [facility] [address] [place] [address] Supervision of high risk in third trimester ( Primary Dx); Visit [facility], [facility] Diabetes mellitus complicating , antepartum; [address] [place] Iron deficiency anemia due to chronic blood loss; [place], [place] Macrosomia; [address] Rh negative state in antepartum period [phone] Allergies No Known Allergiesdocumented as of this [...] 1 Packet by 30 Each 08/13/2018 Active 47-kcsw-jiogq-dha mouth daily. (SELECT-OB + DHA) 29 mg [...] Sign Reading Time Taken Comments Blood Pressure 117/68 03/17/2019 1:29 PM CDT Pulse 86 03/17/2019 1:29 PM CDT Temperature 36.9 C (98.4 F) 03/17/2019 1:29 PM CDT Respiratory Rate 16 03/17/2019 1:29 PM CDT Oxygen Saturation - - Inhaled Oxygen Concentration - - Weight 79.4 kg (175 lb) 03/17/2019 1:29 PM CDT Height 167.6 cm (5' 6") 03/17/2019 1:29 PM CDT Body Mass Index 28.25 03/17/2019 1:29 PM CDT documented in this encounter Progress Notes David Collier MD - 03/17/2019 1:30 PM CDT POLINA BEASLEY #: [id number] Date of service: 03/17/2019 14:05 Routine Visit CC: MFM visit , Routine visit SUBJECTIVE: Patient has no complaints. Denies bleeding, LOF, contractions. Feeling active movement. Pt is 38w3d IUP. She denies any pain today. ROS: General: negative, (-) fever, (-) chills, (-) dizziness Skin: negative, (-) rash, (-) lesion HEENT: negative, (-) headache Resp: negative, (-) cough, (-) shortness of breath, (-) dyspnea on exertion Cardio: negative, (-) chest pain, (-) palpitations GI: negative, (-) abdominal pain, (-) nausea, (-) vomiting : negative, (-) dysuria (-)bleeding (-) LOF Psych: negative, (-) anxiety, (-) depression, (-) psychiatric disorder Denies abuse; Denies depression; Denies domestic violence Past Medical History: Diagnosis Date Abnormal maternal glucose tolerance, antepartum 08/07/2018 Anemia 01/30/2019 Diabetes mellitus complicating , antepartum 12/30/2018 Diet controlled gestational diabetes mellitus (GDM) in second trimester 11/28 STD (sexually transmitted disease) Chlamydia 2012--treated Social History Socioeconomic History Marital status: Single [...] file Gets together: Not on file Attends gnosticism service: Not on file Active member of [...] History Narrative Denies domestic violence or abuse . Family History Problem Relation Age of Onset Arthritis NoFHx Asthma NoFHx defects NoFHx Breast Cancer NoFHx Colon Cancer NoFHx Ovarian Cancer NoFHx Uterine Cancer NoFHx Cancer NoFHx Depression NoFHx Diabetes NoFHx Genetic NoFHx Heart NoFHx High cholesterol NoFHx Hypertension NoFHx Mental retardation NoFHx Neurological NoFHx Osteoporosis NoFHx Psychiatry NoFHx OBJECTIVE: BP 117/68 (BP Location: Right arm, Patient Position: Sitting, BP CUFF SIZE: Adult Medium) | Pulse 86 | Temp 36.9 C (98.4 F) (Oral) | Resp 16 | Ht 5 ' 6" (1.676 m) | Wt 175 lb (79.4 kg) | LMP 06/21/2018 (Exact Date) | BMI 28.25 kg/m Normalized qbxgfzn-qqg-wyw data not available for patients older than 20 years. Normalized kkkxou-eie-czj data not available for patients older than 20 years. No head circumference on file for this encounter. General: no acute distress and alert Respiratory: chest non-tender, no respiratory distress Abdomen: soft, non-tender,gravid size=dates Back: non-tender, normal inspection, painless range of motion and (-) CVA tenderness Skin: intact and warm, dry Extremities: normal range of motion and gait normal Neuro/Psych: alert, oriented x3, cooperative, interactive and mood/affect normal WBC x10^3 (/CMM) Date Value 12/01/2010 6.7 WBC (10*3/L) Date Value 03/04/2019 8.31 02/06/2019 9.88 HGB Date Value 03/04/2019 10.5 g/dL (L) 02/06/2019 9.8 g/dL (L) 12/01/2010 11.8 G/DL HCT (%) Date Value 03/04/2019 34.2 (L) 02/06/2019 32.0 (L) 12/01/2010 36.6 PLT x10^3 (/CMM) Date Value 12/01/2010 277 PLT (10*3/L) Date Value 03/04/2019 246 02/06/2019 269 AST(SGOT) (U/L) Date Value 02/13/2019 26 08/19/2018 20 ALT(SGPT) (U/L) Date Value 02/13/2019 8 (L) 08/19/2018 15 CREATININE (mg/dL) Date Value 02/13/2019 0.38 (L) 08/19/2018 0.40 (L) PROTEIN (no units) Date Value 08/19/2018 Negative 05/30/2018 Negative Routine Visit on 03/17/2019 Component Date Value Ref Range Status POCT U SP GRAV 03/17/2019 . 1.005 - 1.025 mg/dl Final POCT PH U 03/17/2019 6 5 - 8 mg/dl Final POCT U LEUK EST 03/17/2019 2+ Negative - Negative Final POCT U NIT 03/17/2019 neg Negative - Negative Final POCT U PROT 03/17/2019 neg Negative - Negative Final POCT U GLU 03/17/2019 2+ Negative - Negative Final POCT U KETONE 03/17/2019 neg Negative - Negative Final POCT U UROBILI 03/17/2019 . 0.2 - 1 mg/dl Final POCT U BILI 03/17/2019 . Negative - Negative Final POCT U BLD 03/17/2019 neg Negative - Negative Final Routine Visit on 03/13/2019 Component Date Value Ref Range Status POCT U SP GRAV 03/13/2019 . 1.005 - 1.025 mg/dl Final POCT PH U 03/13/2019 . 5 - 8 mg/dl Final POCT U LEUK EST 03/13/2019 . Negative - Negative Final POCT U NIT 03/13/2019 . Negative - Negative Final POCT U PROT 03/13/2019 Trace Negative - Negative Final POCT U GLU 03/13/2019 Neg Negative - Negative Final POCT U KETONE 03/13/2019 . Negative - Negative Final POCT U UROBILI 03/13/2019 . 0.2 - 1 mg/dl Final POCT U BILI 03/13/2019 . Negative - Negative Final POCT U BLD 03/13/2019 . Negative - Negative Final Immunization History Administered Date(s) Administered HPV 12/01/2010, 02/03/2011 Rho (d) Immune Globulin 01/13/2019 Td 07/02/2008 Tdap 01/13/2019 Radiology: I have reviewed the patient's Radiology report(s). Assessment and Plan :24 year old 38w3d intrauterine OB History Para Term AB Living 1 0 0 0 0 0 SAB TAB Ectopic Multiple Live Births 0 0 0 0 # Outcome Date GA Lbr Beck/2nd Weight Sex Delivery Anes PTL Lv 1 Current Current Outpatient Medications Medication Sig Dispense Refill docusate 100 mg capsule Take 1 capsule by mouth 2 (two) times daily. 60 capsule 2 ascorbic acid, vitamin C, 500 mg tablet Take 1 tablet by mouth 3 (three) times daily. 90 tablet 3 ferrous sulfate 325 mg (65 mg iron) tablet Take 1 tablet by mouth 3 (three) times daily with meals. 90 tablet 5 Blood-Glucose Meter (FREESTYLE LITE METER) Kit Use as directed 1 Kit 0 blood sugar diagnostic (FREESTYLE LITE STRIPS) strip Use as directed 1 Box 10 lancets 17 gauge Misc Use as directed 1 Each 10 vit 37-ycgj-jdzgv-dha (SELECT-OB + DHA) 29 mg iron-1 mg -250 mg combo pack Take 1 Packet by mouth daily. 30 Each 6 No current facility-administered medications for this visit. Polina Beasley is a 24 year old female OB History Para Term AB Living 1 0 0 0 0 0 SAB TAB Ectopic Multiple Live Births 0 0 0 0 0 O09.93 Supervision of high risk in third trimester O24.919 Diabetes mellitus complicating , antepartum Patient Active Problem List Diagnosis Rh negative state in antepartum period Macrosomia Diabetes mellitus complicating , antepartum Anemia Polyhydramnios, antepartum complication Age: [age] year old GA: 38w3d 1.?BDM Diagnosed on entry to care at 6 weeks. A1c was 5.1 on 01/13. No baseline pr:cr. Reviewed accuchecks and are in 70s-90s. Will not start meds. Pt assures me these are her sugars. Glucometer reviewed as well.Last sono 01/09 with EFW and AC <97% and elevated MARY. Start twice weekly NSTs. Patient also has not brought her logs. Polyhydramnios NST nonreactive today will send to [place] for delivery 2. Anemia Hb 9.9 on 12/25.Prescribediron and vit c. Iron is making her constipated. Will order colace. Takea week off from iron and give it a chance to work. 3. Sero neg, RI, VZVI, Oneg, NKDA, MEDS: vit c and iron. S/p TDAP. Plan of care, senia isidro, PIH precautions documented in this encounter Plan of Treatment Health Maintenance Due Date Last Done Comments [...] Priority Date/Time Associated Diagnosis Comments NON-STRESS Routine 03/17/2019 2:06 Supervision of high Results for this TEST PM CDT risk in procedure are in third trimester the results Diabetes mellitus section. complicating , antepartum Iron deficiency anemia due to chronic blood loss Macrosomia Rh negative state in antepartum period POCT URINALYSIS Routine 03/17/2019 1:30 Supervision of high Results for this PM CDT risk in procedure are in third trimester the results Diabetes mellitus section. complicating , antepartum documented in this encounter Results NON-STRESS TEST (03/17/2019 2:06 PM CDT) Specimen Narrative Performed At NON STRESS TEST INTERPRETATION PACS Date: 03/17/2019 14:06 Polina Beasley is a 24 year old female Gestational age: [id number] Indications: Patient Active Problem List Diagnosis Rh negative state in antepartum period Macrosomia Diabetes mellitus complicating , antepartum Anemia Polyhydramnios, antepartum complication Results: NST: Non-reactive FHR baseline: 140 BPM Changes: no 2x2 accelerations Comments: occasional contractions Plan: L&D for delivery. David Collier MD #[id number] 2:06 PM Performing Organization Address City/State/Zipcode Phone Number PACS POCT URINALYSIS W SPECIFIC GRAVITY (03/17/2019 1:30 PM CDT) POCT U SP GRAV . 1.005 - 1.025 mg/dl POCT PH U 6 5 - 8 mg/dl POCT U LEUK EST 2+ Negative - Negative POCT U NIT neg Negative - Negative POCT U PROT neg Negative - Negative POCT U GLU 2+ Negative - Negative POCT U KETONE neg [...] mellitus complicating , antepartum Diabetes mellitus, antepartum Iron deficiency anemia due to chronic blood loss Iron deficiency anemia secondary to blood loss (chronic) Macrosomia Exceptionally large baby relating to long gestation Rh negative state in antepartum period Rhesus isoimmunization affecting management of mother, antepartum condition documented in this encounter Insurance Payer Benefit Plan / Subscriber ID Effective Phone Address Type Group [facility] xxxxxxxxx 2018-Tequila [address] Medicaid HEALTH CHOICE - HEALTH [employer] [id number] MANAGED MEDICAID [place], [place] MEDICAID [phone] documented as of this encounter Advance Directives Name Relationship Healthcare Agent Communication Relationship Mona Beasley Mother Primary healthcare agent
--- OUTSIDE RECORDS SUMMARY | 2019-06-11 22:12 | XMS REPORT | Summary of Care ---
:1995 Author Organization [facility] - [facility] Address [address] [place] [id number] Care Team Providers Name Role Phone Joe Hagen MD Consulting Physician Dianne Marshall [facility] Primary Care Provider Reason for Referral (Routine) Status Reason Specialty Diagnoses / Referred By Referred To Procedures Contact Contact New Request OB Satellites Diagnoses S/P section Ysabel Castro, Procedures DISCHARGE FOLLOW-UP: [facility] [address] [place] [phone] Reason for Visit Auth/Cert Status Reason Specialty Diagnoses / Referred By Contact Referred To Contact Procedures Obstetrics Diagnoses 38 WEEKS GESTATION OF [address] [place] [phone] Encounter Details Date Type Department Care Team Description 03/17/2019 - Hospital Encounter Mother Baby Unit Roque Guillermo 38 weeks gestation 03/20/2019 (J7Sandor Nieves MD of [address] [place] [id number] Allergies No Known Allergiesdocumented as of this encounter (statuses as of 03/20/2019) Medications Medication Sig Dispensed Refills Start Date End Date Status vitamin Take 1 tablet 100 tablet 3 03/19/2019 Active w/FA by mouth tabletIndications: daily. S/P section docusate calcium Take 1 capsule 60 capsule 1 03/19/2019 Active 240 mg by mouth once capsuleIndications daily as : S/P needed for section Constipation. ferrous sulfate Take 1 tablet 60 tablet 2 03/19/2019 Active 325 mg (65 mg by mouth 2 iron) (two) times tabletIndications: daily. S/P section ibuprofen 600 mg Take 1 tablet 60 tablet 1 03/19/2019 Active tabletIndications: by mouth every S/P 6 (six) hours section as needed for Pain (scale 1-3) or Pain (scale 4-6) (Pain). Take with food or milk. HYDROcodone-acetam Take 1 tablet 15 tablet 0 03/19/2019 03/26/2019 Active inophen 5-325 mg by mouth every tabletIndications: 6 (six) hours S/P as needed for section Pain (scale 7-10) (Pain scale above 4) for up to 7 days. blood sugar Use as 1 Box 10 08/13/2018 03/19/2019 Discontinued diagnostic directed (FREESTYLE LITE STRIPS) stripIndications: Diet controlled gestational diabetes mellitus (GDM), antepartum lancets 17 gauge Use as 1 Each 08/13/2018 03/19/2019 Discontinued MiscIndications: directed Diet controlled gestational diabetes mellitus (GDM), antepartum vit Take 1 Packet 30 Each 6 08/13/2018 03/19/2019 Discontinued 41-oxya-bqely-dha by mouth (SELECT-OB + DHA) daily. 29 mg iron-1 mg -250 mg combo packIndications: Diet controlled gestational diabetes mellitus (GDM), antepartum Blood-Glucose Use as 1 Kit 0 11/11/2018 03/19/2019 Discontinued Meter (FREESTYLE directed LITE METER) KitIndications: Diet controlled gestational diabetes mellitus (GDM), antepartum ascorbic acid, Take 1 tablet 90 tablet 3 12/26/2018 03/19/2019 Discontinued vitamin C, 500 mg by mouth 3 tabletIndications: (three) times Anemia of mother daily. in , antepartum ferrous sulfate Take 1 tablet 90 tablet 5 12/26/2018 03/19/2019 Discontinued 325 mg (65 mg by mouth 3 iron) (three) times tabletIndications: daily with Anemia of mother meals. in , antepartum docusate 100 mg Take 1 capsule 60 capsule 2 02/03/2019 03/19/2019 Discontinued capsuleIndications by mouth 2 : Diabetes (two) times mellitus daily. complicating , antepartum documented as of this encounter (statuses as of 03/20/2019) Active Problems Problem Noted Date 38 weeks gestation of 03/17/2019 Abnormality in heart rate and rhythm complicating labor and delivery Polyhydramnios, antepartum complication 02/06/2019 Overview: NST x2 weekly Anemia 01/30/2019 Diabetes mellitus complicating , antepartum 12/30/2018 Macrosomia 12/25/2018 Rh negative state in antepartum period 08/07/2018 Comments Yes documented as of this encounter (statuses as of 03/20/2019) Resolved Problems Problem Noted Date Resolved Date [...] as of this encounter (statuses as of 03/20/2019) Immunizations Name Administration Dates Next Due HPV 02/03/2011, 12/01/2010 HPV9 03/19/2019 Rho (d) Immune Globulin 03/18/2019, 01/13/2019 Td 07/02/2008 Tdap 01/13/2019 documented as of this encounter Social History Tobacco Use Types Packs/Day Years Used Date Never Smoker Smokeless Tobacco: Never Used Alcohol Use Drinks/Week oz/Week Comments No socially-not currently Comments Yes Sex Assigned at Date Recorded Not on file Job Start Date Occupation Industry Not on file Not on file Not on file Travel History Travel Start Travel End No recent travel history available. documented as of this encounter Last Filed Vital Signs Vital Sign Reading Time Taken Comments Blood Pressure 112/65 03/20/2019 8:00 AM CDT Pulse 82 03/20/2019 8:00 AM CDT Temperature 36.7 C (98 F) 03/20/2019 8:00 AM CDT Respiratory Rate 18 03/20/2019 8:00 AM CDT Oxygen Saturation 98% 03/20/2019 8:00 AM CDT Inhaled Oxygen Concentration - - Weight 78.9 kg (174 lb) 03/17/2019 6:30 PM CDT Height 167.6 cm (5' 6") 03/17/2019 6:30 PM CDT Body Mass Index 28.08 03/17/2019 6:30 PM CDT documented in this encounter Discharge Instructions InstructionsHugh Solis RN - 03/20/2019Multidisciplinary Discharge Instructions (may include diet, dressing changes, activity limits, written materials given to patient: DIET: Eat a well balanced diet; drink 6-8 glasses of fluids daily; eat fruits and green, leafy vegetables. DAILY ACTIVITIES: 1. As much as you feel able to do. Rest when you are tired. 2. Limitations: Specify; No heavy lifting other than your baby for 4 weeks if you had surgery. TREATMENT AT HOME 1. Use a well-fitting bra to prevent breast engorgement 2. Resume intercourse as instructed by your physician. 3. Do not use douches or tampons for four weeks. 4. To help prevent urinary tract infection; after each urination and bowel movement, wipe and dry from front to back and change abraham pad. 5. Follow discharge instructions regarding baby care. 6. Follow family planning instructions. IMMEDIATE TREATMENT - Call Clinic or Your Physician 1. Increase in pain and tenderness of uterus. 2. Increased vaginal bleeding (bright red blood which soaks 2 pads in 1 hour or pass large clots). 3. Foul smelling vaginal discharge. 4. Burning in the tube that empties the urine from the bladder. 5. Painful breast engorgement or cracked nipples. 6. Pain, discharges, or gaping incision. 7. Temperature greater than 38.0C or 100.4F 8. Pain and tenderness of calf or thigh muscles. 9. No bowel movements in 4 days. For Problems or Questions Call: OB Clinic Family Planning [phone] or Emergency: Go to the closest emergency room or call 911 AttachmentsThe following attachments cannot be sent through Care Everywhere., Breast Care After (Lithuanian), After (Lithuanian) Depression, Understanding (Lithuanian)Incision Care (Lithuanian)documented in this encounter Progress Notes Mally Moreno MD - 03/19/2019 7:15 AM CDT POST-OPERATIVE PROGRESS NOTE 03/19/2019 7:15 AM Subjective: Overnight patient had no complaints. Her pain is well controlled on oral pain medications. She is tolerating a regular diet. She has passed flatus. She is ambulating without difficulty. Lochia is Scant. She is urinating without fu. Patient denies chest pain, SOB, n/v, headache, RUQ pain, vision changes, dizziness. Objective: VITALS: Patient Vitals for the past 24 hrs: BP Temp Temp src Pulse Resp SpO2 03/19/19 0400 97/61 36.4 C (97.5 F) Oral 96 17 98 % 03/19/19 0000 106/60 37.2 C (99 F) Oral 88 18 99 % 03/18/19 2000 111/68 36.7 C (98.1 F) Oral 103 20 99 % 03/18/19 1600 120/79 37.1 C (98.7 F) Oral 100 20 98 % 03/18/19 1200 113/68 37.2 C (98.9 F) Oral 94 17 99 % 03/18/19 0927 110/60 36.7 C (98.1 F) Oral 100 17 97 % 03/18/19 0850 106/73 95 15 98 % 03/18/19 0845 133/86 97 17 100 % 03/18/19 0830 (!) 144/98 98 22 98 % 03/18/19 0815 (!) 151/93 96 22 99 % 03/18/19 0800 97 22 98 % 03/18/19 0740 (!) 145/129 37.3 C (99.1 F) Axillary 115 20 100 % I/O: Intake/Output Summary (Last 24 hours) at 03/19/2019 0715 Last data filed at 03/19/2019 0600 Gross per 24 hour Intake 2500 ml Output 2200 ml Net 300 ml PE: General: patient alert and in no acute distress Lungs: clear to auscultation bilaterally Cardiology: regular rate and rhythm, no murmur Abdomen: normal tenderness to palpation, soft, bowel sounds present. Fundus is firm and at umbilicus Incision: Clean, dry, and intact, no erythema or induration Extremities: no clubbing, cyanosis, or edema : deferred MEDS: Current Facility-Administered Medications Medication Dose Route Frequency Last Rate Last Dose bisacodyl (DULCOLAX) suppository 10 mg 10 mg Rectal QDAILYPRN diphenhydrAMINE (BENADRYL) 25 mg in NaCl 0.9% (NS) piggyback 25 mg IV Piggyback Q6HPRN diphenhydrAMINE (BENADRYL) tablet 25 mg 25 mg Oral Q6HPRN docusate calcium (SURFAK) capsule 240 mg 240 mg Oral QDAILYPRN 240 mg at 03/18/19 2340 HYDROcodone-acetaminophen (NORCO 5) 5-325 mg tablet 1 tablet 1 tablet Oral Q6HPRN 1 tablet at03/18/19 2340 HYDROcodone-acetaminophen (NORCO 5) 5-325 mg tablet 2 tablet 2 tablet Oral Q6HPRN ibuprofen (IBU) tablet 600 mg 600 mg Oral Q6HPRN 600 mg at 03/19/19 0447 ketorolac (TORADOL) injection 30 mg 30 mg Slow IV Push PRN magnesium hydroxide (MILK OF MAGNESIA) 400 mg/5 mL suspension 30 mL 30 mL Oral QDAILYPRN nalbuphine (NUBAIN) injection 5 mg 5 mg Intravenous PRN naloxone (NARCAN) injection 0.4 mg 0.4 mg Slow IV Push PRN - SEE INSTRUCTIONS ondansetron (ZOFRAN (PF)) injection 4 mg 4 mg Slow IV Push Q8HPRN rho(D) immune globulin (RHOGAM) syringe 300 mcg 300 mcg Intramuscular ONCE simethicone (GAS RELIEF) chewable tablet 160 mg 160 mg Oral PC+HSPRN 160 mg at 03/18/19 2340 LABS: WBC x10^3 (/CMM) Date Value 12/01/2010 6.7 WBC (10*3/L) Date Value 03/19/2019 12.29 (H) 03/04/2019 8.31 HGB Date Value 03/19/2019 9.9 g/dL (L) 03/04/2019 10.5 g/dL (L) 12/01/2010 11.8 G/DL HCT (%) Date Value 03/19/2019 31.5 (L) 03/04/2019 34.2 (L) 12/01/2010 36.6 PLT x10^3 (/CMM) Date Value 12/01/2010 277 PLT (10*3/L) Date Value 03/19/2019 189 03/04/2019 246 Assessment: Polina Beasley is a 24 year old POD#1 s/p primary LTCS on 03/18 at 38w5d at 0[address]for suspected macrosomnia, uncomplicated. Patient is recovering well: hemodynamically stable, good UOP, pain well-controlled, vitals within normal limits. Plan: Postoperative Review: - Admitted for: IOL - Surgical procedure: Primary Lower uterine tranverse section with no extension - Skin incision: pfannenstiel - Closure: yefri - Estimated blood loss: 700 mL - Intraoperative Complications: none - Clinical trials: TXA - Urine output: 1.7L overnight - Preop H/H: 10.5/34.2 - Postop H/H: 9.9/31.5 BDM - diagnosed by 6wk 1h GTT - not on meds - A1c 5.1 on 01/1303/17/2019 20:13 03/18/2019 04:34 03/18/2019 20:09 03/19/2019 05:45 POCT Blood Glucose 71 69 88 92 - Will need 6 week 2 hr GTT Rh- - s/p Rhogam 01/13 - Will evaluate for rhogam need Anemia - last H/H 10.5/34.2 on 03/04 - reports Fe induces constipation, but compliant with PNV and vit C supplementation - Will send with Integra Antepartum course reviewed - 1 h 176, 3h 82,199,,182,139, sero negative, Rimmune, VZVimmune, O negative/ IAT negative, GBS negative, Pap NILM 08/15/18 - H/H, plt: 10.5 / 34.2, 246 on 03/04/19 - [facility] Postoperative care: - Diet: Advance as tolerated - Fluid: Encourage oral intake - Activity: Encourage ambulation and incentive spirometry - Pain: Sarah and Ibuprofen - DVT prophylaxis: SCDs and TEDs when not ambulating Discharge Planning - Contraception: Will discuss with clinic provider - Vaccines: Gardasil - Follow up in 5-7 days for incision check and/or staple removal at [facility] - Follow Up: follow-up in 3-6 weeks at [facility] - Dispo: Anticipate discharge POD 2-3 Baby's Status - APGARs 8 , 9 - Weight: 4030 g - Location: At bedside Dispo: Patient is more than 24 hours . Would like to stay another day for better ability to ambulate. Needs incision check. Anticipate discharge POD 2 -3 Mally Moreno MD Associated attestation - Ysabel Castro MD - 03/19/2019 1:30 PM CDTI personally examined the patient on 03/19/[address] Kumari's resident note as written . I actively participated in the decision-making process. Please see the resident's note for additional details. Richard Mcpherson MD - 03/17/2019 8:01 PM CDTR4 OB Patient sent for delivery due to NRNST at 38 weeks in the setting of Class BDM. EFW >4.5 kg per [facility] on 03/13/19. She was counseled about risks of shoulder dystocia in the event of VD given diabetes and EFW > 4.5 kg. Shoulder dystocia is an unpredictable event, though with a larger baby, especially with a large AC, the risk may be elevated to as high as 10%. During delivery, if a shoulder dystocia occurs, it is an emergency. The delivery may require more people to be present and for maneuvers to be performed, including pulling the legs back, suprapubic pressure, and cutting an episiotomy. The risk of permanent nerve damage during a shoulder dystocia, demise is overall low. Patient understands these risks and all questions were answered. Per ACOG guidelines, primary csection is recommended if EFW is >4.5 in Diabetic patients. However, risks of csection include more bleeding, infection. Injury to surrounding organs including bowel, bladder and ureters. Patient verbelized understanding, all questions answered. Desires to proceed with primary csection. D/w Dr. Guillermo. Richard Mcpherson MD documented in this encounter Plan of Treatment Date Type Specialty Care Team Description 03/31/2019 Office Visit OB Satellites Faculty, [facility] 04/08/2019 Routine Visit OB Satellites Dianne Marshall, CNP [address] [place] [address] [phone] Health Maintenance Due Date Last Done Comments PNEUMOCOCCAL 0-64 YEARS COMBINED 2000 SERIES (1 of 1 - PPSV23) EYE EXAM 2004 LDL-C 2004 URINE MICROALBUMIN 2004 INFLUENZA VACCINE (#1) 2019 HgA1C 07/16/2019 01/13/2019, 11/28/2018, 11/28/2018 FOOT EXAM 11/29/2019 11/28/2018, 11/28/2018, 11/28/2018 CREATININE (SERUM) 02/14/2020 02/13/2019, 08/19/2018, 05/30/2018, Additional history exists PAP SMEAR 08/05/2021 08/05/2018 DTaP,Tdap,and Td Vaccines (3 - Td) 01/13/2029 01/13/2019, 07/02/2008 HPV VACCINES Completed 03/19/2019, 02/03/2011, 12/01/2010 documented as of this encounter Procedures Procedure Name Priority Date/Time Associated Comments Diagnosis POCT GLUCOSE Routine 03/20/2019 5:43 Results for this (AUTOMATED) AM CDT procedure are in the results section. POCT GLUCOSE Routine 03/19/2019 3:51 Results for this (AUTOMATED) PM CDT procedure are in the results section. POCT GLUCOSE Routine 03/19/2019 11:33 Results for this (AUTOMATED) AM CDT procedure are in the results section. POCT GLUCOSE Routine 03/19/2019 5:45 Results for this (AUTOMATED) AM CDT procedure are in the results section. CBC WITH DIFFERENTIAL Routine 03/19/2019 4:53 Results for this AM CDT procedure are in the results section. CBC WITH DIFF Routine 03/19/2019 4:53 Results for this AM CDT procedure are in the results section. POCT GLUCOSE Routine 03/18/2019 8:09 Results for this (AUTOMATED) PM CDT procedure are in the results section. MATERNAL HEMO Routine 03/18/2019 5:20 Results for this SCREEN PM CDT procedure are in the results section. VENOUS CORD GAS SAMINA 03/18/2019 6:50 Results for this AM CDT procedure are in the results section. ARTERIAL CORD GAS SAMINA 03/18/2019 6:50 Results for this AM CDT procedure are in the results section. SECTION 03/18/2019 5:51 s/p CS for AM CDT macrosomia POCT GLUCOSE Routine 03/18/2019 4:34 Results for this (AUTOMATED) AM CDT procedure are in the results section. GALV ONLY - SYPHILIS SAMINA 03/17/2019 8:16 Results for this IGG/IGM PM CDT procedure are in the results section. HEPATITIS B SURFACE SAMINA 03/17/2019 8:16 Results for this ANTIGEN PM CDT procedure are in the results section. POCT GLUCOSE Routine 03/17/2019 8:13 Results for this (AUTOMATED) PM CDT procedure are in the results section. RHO (D) IMMUNE Routine 03/17/2019 7:41 Results for this GLOBULIN PM CDT procedure are in the results section. TYPE AND SCREEN SAMINA 03/17/2019 7:41 Results for this PM CDT procedure are in the results section. documented in this encounter Results POCT GLUCOSE (AUTOMATED) (03/20/2019 5:43 AM CDT) POCT GLU 101 70 - 110 mg/dL [facility] Specimen Blood Performing Organization Address City/State/Zipcode Phone Number [facility] CLIA: [id number], [address] [place], [place] [id number] [facility] POCT GLUCOSE (AUTOMATED) (03/19/2019 3:51 PM CDT) POCT GLU 105 70 - 110 mg/dL [facility] Specimen Blood Performing Organization Address City/[facility]/Zipcode Phone Number [facility] CLIA: [id number], [address] [place] [phone] [facility] POCT GLUCOSE (AUTOMATED) (03/19/2019 11:33 AM CDT) POCT GLU 101 70 - 110 mg/dL [facility] Specimen Blood Performing Organization Address City/[facility] Phone Number [facility] CLIA: [id number], [address] [place] [id number] [phone] [facility] POCT GLUCOSE (AUTOMATED) (03/19/2019 5:45 AM CDT) POCT GLU 92 70 - 110 mg/dL [facility] Specimen Blood Performing Organization Address City/[facility] Phone Number [facility] CLIA: [id number], [address] [place] [phone] [facility] CBC WITH DIFFERENTIAL (03/19/2019 4:53 AM CDT) WBC 12.29 (H) 4.30 - 11.10 [facility] 10*3/L SERVICES RBC 3.90 (L) 3.93 - 5.25 [facility] 10*6/L SERVICES HGB 9.9 (L) 11.6 - 15.0 [facility] g/dL SERVICES HCT 31.5 (L) 35.7 - 45.2 % [facility] SERVICES MCV 80.8 80.6 - 95.5 fL [facility] SERVICES MCH 25.4 (L) 25.9 - 32.8 pg [facility] SERVICES MCHC 31.4 (L) 31.6 - 35.1 [facility] g/dL SERVICES RDW-SD 64.2 (H) 39.0 - 49.9 fL [facility] SERVICES RDW-CV 22.7 (H) 12.0 - 15.5 % [facility] SERVICES PLT 189 166 - 358 [facility] 10*3/L SERVICES MPV 10.9 9.5 - 12.9 fL [facility] NRBC/100 WBC 0.0 0.0 - 10.0 /100 [facility] WBCs SERVICES NRBC x10^3 <0.01 10*3/L [facility] SERVICES GRAN MAT (NEUT) % 74.3 % [facility] IMM GRAN % 0.70 % [facility] LYMPH % 16.4 % [facility] MONO % 7.6 % [facility] EOS % 0.7 % [facility] BASO % 0.3 % [facility] GRAN MAT x10^3(ANC) 9.14 (H) 1.88 - 7.09 [facility] 10*3/uL SERVICES IMM GRAN x10^3 0.08 (H) 0.00 - 0.06 [facility] 10*3/uL SERVICES LYMPH x10^3 2.01 1.32 - 3.29 [facility] 10*3/uL SERVICES MONO x10^3 0.93 (H) 0.33 - 0.92 [facility] 10*3/uL SERVICES EOS x10^3 0.09 0.03 - 0.39 [facility] 10*3/uL SERVICES BASO x10^3 0.04 0.01 - 0.07 [facility] 10*3/uL SERVICES Specimen Blood - ARM, RIGHT Performing Organization Address City/[facility]/Zipcode Phone Number [facility] CLIA: [id number], [address] [place] [id number] [facility] POCT GLUCOSE (AUTOMATED) (03/18/2019 8:09 PM CDT) POCT GLU 88 70 - 110 mg/dL [facility] Specimen Blood Performing Organization Address City/State/Zipcode Phone Number [facility] CLIA: [id number], [address] [place] [address] [phone] [facility] MATERNAL HEMO SCREEN (03/18/2019 5:20 PM CDT) RHIG REQUIRED? 1 Syringe LAB Comment: Patient is a candidate for RhIg- Patient is Rh Negative and baby is Rh Positive. Performed at [facility] Laboratory Services - [facility] Blood Bank [address] [place] [address] Toll Free: [phone] CLIA No. [id number] SCREEN Negative LAB Comment: Performed at [facility] Laboratory Services - [facility] Blood Bank [address] [place] [address] Toll Free: [phone] CLIA No. [id number] Specimen Blood - VENOUS Performing Organization Address [facility] Phone Number [facility] LAB ARTERIAL CORD GAS (03/18/2019 6:50 AM CDT) BASE EXCESS, CORD -2.8 mEq/L [facility] AC PH, CORD (BEAKER) 7.32 7.18 - 7.38 [facility] PC02, CORD 47 32 - 66 mmHg [facility] PO2, CORD 16 10 - 30 mmHg [facility] BICARBONATE, CORD 24 17 - 27 mEq/L [facility] Specimen Blood - CORD Performing Organization Address [facility] Phone Number [facility] CLIA: [id number], [address] [place] [phone] [facility] VENOUS CORD GAS (03/18/2019 6:50 AM CDT) VENOUS BASE EXCESS, -3.5 mEq/L [facility] CORD SERVICES VENOUS PH, CORD 7.37 7.25 - 7.45 [facility] VENOUS PC02, CORD 38 27 - 49 mmHg [facility] VENOUS PO2, CORD 21 17 - 41 mmHg [facility] VENOUS BICARBONATE, 21 12 - 29 mEq/L [facility] CORD SERVICES Specimen Blood - CORD Performing Organization Address City/[facility] Phone Number [facility] CLIA: [id number], [address] [place] [phone] [facility] POCT GLUCOSE (AUTOMATED) (03/18/2019 4:34 AM CDT) POCT GLU 69 (L) 70 - 110 mg/dL [facility] Specimen Blood Performing Organization Address City/[facility]/Zipcode Phone Number [facility] CLIA: [id number], [address] [place] [phone] [facility] GAL ONLY - SYPHILIS IGG/IGM (03/17/2019 8:16 PM CDT) Pathologist [facility] Syphilis IgG/IgM Non-reactive Non-reactive [facility] Specimen Blood - ARM, LEFT Narrative Performed At Non-reactive - No serologic evidence of T. pallidum [facility] infection. Cannot exclude incubating or early syphilis. Submit a second specimen in 2-4 weeks if syphilis is clinically suspected. Equivocal - Further testing to follow. Reactive - Further testing to follow. Performing Organization Address City/[facility]/Zipcode Phone Number [facility] CLIA: [id number], [address] [place] [address] [facility] Hepatitis B Surface Antigen (03/17/2019 8:16 PM CDT) [facility] HBsAg HEPATITIS B Negative [facility] SURFACE ANTIGEN SERVICES NEGATIVE HBsAg 0.07 [facility] Semi-Quantitative SERVICES Specimen Blood - ARM, LEFT Performing Organization Address [facility] Phone Number [facility] CLIA: [id number], [address] [place] [address] [facility] POCT GLUCOSE (AUTOMATED) (03/17/2019 8:13 PM CDT) [facility] POCT GLU 71 70 - 110 mg/dL [facility] Specimen Blood Performing Organization Address [facility] Phone Number [facility] CLIA: [id number], [address] [place] [address] [facility] RHO (D) IMMUNE GLOBULIN (03/17/2019 7:41 PM CDT) [facility] RHIG CANDIDATE? Yes- see comment (A) LAB Comment: Patient is a candidate for RhIg- Patient is Rh Negative and currently . Performed at [facility] Laboratory Services - [facility] Blood [place] [address] Toll Free: [phone] CLIA No. [id number] Specimen Blood - VENOUS Performing Organization Address [facility] Phone Number [facility] LAB Type and Screen - ONCE SAMINA (03/17/2019 7:41 PM CDT) [facility] ABO & RH O NEGATIVE LAB Comment: Performed at [facility] Laboratory Services - [facility] Blood [place] [address] Toll Free: [phone] CLIA No. [id number] IAT Negative LAB Comment: Performed at [facility] Laboratory Services - [facility] Blood Bank [address] [place] [address] Toll Free: [phone] CLIA No. [id number] Specimen Blood - VENOUS Performing Organization Address City/State/Zipcode Phone Number BLD LAB documented in this encounter Visit Diagnoses Diagnosis S/P section - Primary Other postprocedural status 38 weeks gestation of state, incidental Rh negative state in antepartum period Rhesus isoimmunization affecting management of mother, antepartum condition Diabetes mellitus complicating , antepartum Diabetes mellitus, antepartum Anemia Anemia, unspecified Polyhydramnios, antepartum complication Abnormality in heart rate and rhythm complicating labor and delivery documented in this encounter Administered Medications Medication Order MAR Action Action Date Dose Rate Site docusate calcium (SURFAK) capsule Given 03/18/2019 11:40 PM CDT 240 mg 240 mg 240 mg, Oral, QDAILYPRN, Starting Sun03/18/19 at 0946, Until Discontinued, Routine, Constipation HYDROcodone-acetaminophen (NORCO 5) 5-325 Given 03/19/2019 11:53 AM CDT 1 tablet mg tablet 1 tablet 1 tablet, Oral, Q6HPRN, Starting Sun03/18/19 at 0946, Until Discontinued, Routine, Pain (scale 4-6), If uncontrolled by Ibuprofen Given 03/18/2019 11:40 PM CDT 1 tablet HYDROcodone-acetaminophen (NORCO 5) 5-325 Given 03/20/2019 4:11 AM CDT 2 tablets mg tablet 2 tablet 2 tablet, Oral, Q6HPRN, Starting Sun03/18/19 at 0946, Until Discontinued, Routine, Pain (scale 7-10), If uncontrolled by Ibuprofen ibuprofen (IBU) tablet 600 mg Given 03/20/2019 11:25 AM CDT 600 mg 600 mg, Oral, Q6HPRN, Starting Sun03/18/19 at 0946, Until Discontinued, Routine, Pain (scale 1-3) Given 03/19/2019 7:47 PM CDT 600 mg Given 03/19/2019 11:48 AM CDT 600 mg ketorolac (TORADOL) injection 30 mg 30 mg, Slow IV Push, PRN, 1 dose, Starting Sun03/18/19 at 0759, Until Discontinued, Routine, Pain (scale 7-10), PACU, membership sales advisor approving Restricted medication: SADIA WADE magnesium hydroxide (MILK OF MAGNESIA) 400 Given 03/19/2019 11:51 AM CDT 30 mL mg/5 mL suspension 30 mL 30 mL, Oral, QDAILYPRN, Starting Sun03/18/19 at 0946, Until Discontinued, Routine, Constipation nalbuphine (NUBAIN) injection 5 mg 5 mg, Intravenous, PRN, 1 dose, Starting Sun03/18/19 at 0759, Until Discontinued, Routine, Itching, PACU rho(D) immune globulin (RHOGAM) syringe 300 mcg 300 mcg, Intramuscular, ONCE, For 1 dose, Conditional, Routine simethicone (GAS RELIEF) chewable tablet 160 Given 03/19/2019 7:47 PM CDT 160 mg mg 160 mg, Oral, PC+HSPRN, Starting Sun03/18/19 at 0946, Until Discontinued, Routine, Gas Given 03/19/2019 11:51 AM CDT 160 mg Given 03/18/2019 11:40 PM CDT 160 mg Medication Order MAR Action Action Date Dose Rate Site acetaminophen (TYLENOL) tablet Given 03/18/2019 5:58 AM CDT 650 mg 650 mg 650 mg, Oral, ONCE, 1 dose, Sun03/17/19 at 2130, Routine ceFAZolin in dextrose (iso-os) (ANCEF) 2 Given 03/18/2019 5:57 AM CDT 2 g gram/100 mL Piggyback 2 g 2 g (2,000 mg), IV Piggyback, O.R. 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 ADJUSTMENT, Duration of therapy: within 24 hours of surgery human papillomav vac,9-pardeep(PF) Given 03/19/2019 12:00 PM CDT 0.5 mL Right Arm (GARDASIL 9 (PF)) vial 0.5 mL 0.5 mL, Intramuscular, ONCE-PRIOR TO DISCHARGE, 1 dose, Starting 9/18/19 at 1136, Until Sun03/19/19 at 1200, Routine, Give vaccine prior to discharge lactated ringers IV infusion New Bag 03/18/2019 5:58 AM CDT 1,000 mL 125 mL/hr 1,000 mL at 125 mL/hr, 1,000 mL, IV Infusion, CONTINUOUS, Starting Sun03/17/19 at 2015, Until Sun03/18/19 at 0946, Routine lactated ringers IV infusion 500 New Bag 03/17/2019 8:16 PM CDT 500 mL 999 mL/hr mL at 999 mL/hr, 500 mL, IV Infusion, ONCE, 1 dose, Sun03/17/19 at 2115, Routine sodium citrate-citric acid (BICITRA) 500-334 Given 03/18/2019 5:58 AM CDT 30 mL mg/5 mL solution 30 mL 30 mL, Oral, PRE-PROCEDURE ONCE, 1 dose, Starting Sun03/17/19 at 2008, Until Sun03/18/19 at 0558, Routine, Surgery documented in this encounter Insurance Payer Benefit Plan / Subscriber ID Effective Phone Address Type Group [facility] xxxxxxxxx 2018-Tequila Stokes.Chidi LUNA Medicaid HEALTH CHOICE - HEALTH [employer] nt [id number] [facility] MEDICAID [place], [place] MEDICAID [id number] documented as of this encounter Advance Directives Name Relationship Healthcare Agent Communication Relationship Mona Croninivel Mother Primary healthcare agent
[2019-06-11] MEDS ORDERED: TETRACAINE HCL 0.5% 4ML OPTH ONE (22:48)
[2019-06-11] MEDS ORDERED: FLUORESCEIN SODIUM 1 MG/WRAP ONE (22:48)
--- NOTE | 2019-06-11 22:58 | EDPHYS ---
Physician Documentation [facility] Name: Polina Beasley Age: 24 yrs Sex: Female : 1995 Arrival Date: 06/11/2019 Time: 22:04 Bed 13 Private MD: ED Physician Bogdan Damon HPI: 06/11 22:36 This 24 yrs old Female presents to ER via Ambulatory with complaints of la1 Redness of Eye. 22:36 The patient is experiencing burning, pain, redness, tearing, to the right eye. Onset: la1 The symptoms/episode began/occurred 4 day(s) ago. Duration: the symptoms are continuous. Aggravated by light, Alleviated by nothing. Associated signs and symptoms: Pertinent negatives: chills, dizziness, ear ache, fever, headache, runny nose. Patient does not utilize any form of vision correction. Severity of symptoms: At their worst the symptoms were mild. The patient has not experienced similar symptoms in the past. The patient has not recently seen a physician. 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 - Social history:: Smoking status: Patient/guardian denies using tobacco, never smoked. - Ebola Screening: : No symptoms or risks identified at this time. ROS: 22:37 Constitutional: Negative for fever, chills, and weight loss, Eyes: + for redness and la1 pain to right eye Neck: Negative for injury, pain, and swelling, Cardiovascular: Negative for chest pain, palpitations, and edema, Respiratory: Negative for shortness of breath, cough, wheezing, and pleuritic chest pain, Abdomen/GI: Negative for abdominal pain, nausea, vomiting, diarrhea, and constipation, Back: Negative for injury and pain, MS/Extremity: Negative for injury and deformity. Exam: 22:38 Constitutional: This is a well developed, well nourished patient who is awake, alert, la1 and in no acute distress. 22:38 ENT: Nares patent. No nasal discharge, no septal abnormalities noted. Tympanic membranes are normal and external auditory canals are clear. Oropharynx with no redness, swelling, or masses, exudates, or evidence of obstruction, uvula midline. Mucous membranes moist. Chest/axilla: Normal chest wall appearance and motion. Nontender with no deformity. No lesions are appreciated. Skin: Warm, dry with normal turgor. Normal color with no rashes, no lesions, and no evidence of cellulitis. 22:38 Eyes: Periorbital structures: appear normal, Pupils: equal, round, and reactive to light and accomodation, Extraocular movements: intact throughout, Conjunctiva: injected, in the right eye, Corneas: are normal, Sclera: no acute changes, Visual olmos: are intact, Examination of the other eye reveals no obvious gross abnormality. Vital Signs: 22:38 BP 107 / 56; Pulse 53; Resp 19; Temp 98.6(O); Pulse Ox 99% on R/A; Pain 0/10; fu 22:45 BP 103 / 65; Pulse 73; Resp 18; Pulse Ox 99% on R/A; Pain 0/10; fu Procedures: 22:56 Eye Exam: Tetracaine and fluourescein staining performed. la1 22:57 Eye Exam: no corneal abrasion, no foreign bodies, no increased uptake. la1 MDM: 22:13 Patient medically screened. la1 22:59 Data reviewed: vital signs, nurses notes, I have discussed the patient's la1 presentation/case with the attending Emergency Department Physician; and as a result, I will discharge patient. Data interpreted: Pulse oximetry: on room air is 99 %. Interpretation: normal. Counseling: I had a detailed discussion with the patient and/or guardian regarding: the historical points, exam findings, and any diagnostic results supporting the discharge/admit diagnosis, the need for outpatient follow up, an opthalmologist. ED course: Pt without painful EOM, non-contact wearer, no abnormal findings on eye exam. . 06/11 22:34 Order name: Eye Tray; Complete Time: 22:46 la1 Administered Medications: 23:00 Drug: Tetracaine Drops 0.5 % 1 drops {Note: administered by SMOG TECHNICIAN.} Route: Ophthalmic; fu Site: right eye; 23:00 Drug: Fluorescein Strip 1 strip {Note: administered by SMOG TECHNICIAN.} Route: Ophthalmic; Site: fu right eye; Disposition: 06/12 07:24 Co-signature as Attending Physician, Bogdan Damon MD I agree with the assessment and wa plan of care. Disposition: 06/11/19 22:58 Discharged to Home. Impression: Conjunctivitis. - Condition is Stable. - Discharge Instructions: Bacterial Conjunctivitis, Viral Conjunctivitis. - Prescriptions for polymyxin B sulf- trimethoprim 10,000 unit- 1 mg/mL Ophthalmic drops - instill 1 drop by OPHTHALMIC route every 4 hours for 7 days; 1 Container. - Medication Reconciliation Form, Thank You Letter, Antibiotic Education form. - Follow up: Private Physician; When: 2 - 3 days; Reason: Recheck today's complaints, Re-evaluation by your physician. - Problem is new. - Symptoms have improved. Signatures: Ángel Aguilar, MAIL FORWARDING SYSTEM MARKUP CLERK-C MAIL FORWARDING SYSTEM MARKUP CLERK-Cla1 Bogdan Damon MD MD wa Umadhay, Felix RN RN fu Corrections: (The following items were deleted from the chart) 06/11 23:21 22:58 06/11/2019 22:58 Discharged to Home. Impression: Conjunctivitis. Condition is fu Stable. Forms are Medication Reconciliation Form, Thank You Letter, Antibiotic Education, Prescription Opioid Use. Follow up: Private Physician; When: 2 - 3 days; Reason: Recheck today's complaints, Re-evaluation by your physician. Problem is new. Symptoms have improved. la1
--- NOTE | 2019-06-11 22:58 | ER ---
Nurse's Notes [facility] Name: Polina Beasley Age: 24 yrs Sex: Female : 1995 Arrival Date: 06/11/2019 Time: 22:04 Bed 13 Private MD: Diagnosis: Conjunctivitis Presentation: 06/11 22:25 Presenting complaint: Patient states: "redness of right eye that started last Sunday, fu left eye getting red also that started today". Transition of care: patient was not received from another setting of care. Onset of symptoms was June 07, 2019. Risk Assessment: Do you want to hurt yourself or someone else? Patient reports no desire to harm self or others. Initial Sepsis Screen: Does the patient meet any 2 criteria? No. Patient's initial sepsis screen is negative. Does the patient have a suspected source of infection? No. Patient's initial sepsis screen is negative. Care prior to arrival: None. 22:25 Method Of Arrival: Ambulatory fu 22:25 Acuity: LARRY 4 fu Triage Assessment: 22:33 General: Appears in no apparent distress. Behavior is calm, cooperative, appropriate fu for age, Denies fever, chills. Pain: Denies pain. EENT: Eyes redness and discharges noted to right eye since Sunday morning, feels numb and blurry. patient also stated that left eye starting to get red this morning. . Neuro: Reports blurred vision in right eye. headache. Cardiovascular: Heart tones S1 S2. Respiratory: Airway is patent. GI: Patient currently denies nausea, vomiting. 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 - Social history:: Smoking status: Patient/guardian denies using tobacco, never smoked. - Ebola Screening: : No symptoms or risks identified at this time. Screenin:42 Abuse screen: Denies threats or abuse. Nutritional screening: No deficits noted. fu Tuberculosis screening: No symptoms or risk factors identified. Fall Risk None identified. Assessment: 22:40 General: Appears in no apparent distress. Behavior is calm, cooperative, appropriate fu for age, Denies fever, chills. Pain: Denies pain. Neuro: Denies blurred vision right eye. Cardiovascular: Heart tones S1 S2. Respiratory: Airway is patent Breath sounds are clear bilaterally. Denies cough, shortness of breath. GI: Patient currently denies diarrhea, nausea, vomiting. EENT: Eyes redness and discharges. Derm: No signs and/or symptoms reported regarding the dermatologic system. Musculoskeletal: No signs and/or symptoms reported regarding the musculoskeletal system. Vital Signs: 22:38 BP 107 / 56; Pulse 53; Resp 19; Temp 98.6(O); Pulse Ox 99% on R/A; Pain 0/10; fu 22:45 BP 103 / 65; Pulse 73; Resp 18; Pulse Ox 99% on R/A; Pain 0/10; fu ED Course: 22:04 Patient arrived in ED. ag3 22:05 Ángel Aguilar FNP-C is [facility]. la1 22:05 Bogdan Damon MD is Attending Physician. la1 22:09 Alistair Gonzalez, RAMBO is Primary Nurse. fu 22:31 Triage completed. fu 23:00 Patient has correct armband on for positive identification. Bed in low position. Call light in reach. 23:01 Patient did not have IV access during this emergency room visit. fu 23:20 No provider procedures requiring assistance completed. fu Administered Medications: 23:00 Drug: Tetracaine Drops 0.5 % 1 drops {Note: administered by QUALITY CONTROL COORDINATOR.} Route: Ophthalmic; fu Site: right eye; 23:00 Drug: Fluorescein Strip 1 strip {Note: administered by QUALITY CONTROL COORDINATOR.} Route: Ophthalmic; Site: fu right eye; Outcome: 22:58 Discharge ordered by MD. la1 23:19 Discharged to home ambulatory, with family. fu 23:19 Condition: stable 23:19 Discharge instructions given to patient, Instructed on discharge instructions, follow up and referral plans. Demonstrated understanding of instructions, follow-up care, medications, Prescriptions given X 1. 23:21 Patient left the ED. fu Signatures: Ángel Aguilar FNP-C WATCH ASSEMBLY INSTRUCTOR-[facility] Alistair Gonzalez, RAMBO RN Michelle Chan ag3
[2019-06-12 08:00] VITALS: TEMP 98.6; O2SAT 99
[2019-06-12 08:04] VITALS: BP 103/65
== END 2019-06-11 23:21 | disposition home or self-care (01) ==
LOC: ER 22:03
DX: H10.9 Unspecified conjunctivitis (principal)
CPT/HCPCS: 99283

== ENCOUNTER 2023-01-30 16:50 | Inpatient (IN) | payer BC, SELFPAY ==
--- OUTSIDE RECORDS SUMMARY | 2023-01-30 16:54 | XMS REPORT | Continuity of Care Document ---
:1995 Author Organization [facility] t Address [address] [facility] [address] [place] [address] Care Team Providers Name Role Phone VONNIE JESSICA Primary Care Physician Unavailable COMFORT RENDON Attending Clinician Unavailable Comfort Luong Attending Clinician VONNIE JESSICA Attending Clinician Unavailable Vonnie Jessica CNM Attending Clinician Provider, [facility] Attending Clinician Unavailable Dianne Rob Attending Clinician [phone] DIANNE MARSHALL Attending Clinician Unavailable Doctor Unassigned, [place] Attending Clinician Unavailable ALICE HEWITT Attending Clinician Unavailable Alice Lerner Attending Clinician Bhupinder Pickett Attending Clinician Roque Guillermo MD Attending Clinician Faculty, [facility] Attending Clinician Unavailable David Collier MD Attending Clinician , [facility] Room Attending Clinician Unavailable Anival CASTILLO, Tari Sunshine Attending Clinician Unavailable Bae Koutrouvelis, Metcalf Attending Clinician Risk, Nlj-Xxqds-Al/High Attending Clinician Unavailable Priti Rothman Attending Clinician Cassie Vargas Attending Clinician Breonna Fenton MD Attending Clinician [facility] Attending Clinician Unavailable Braxton Marte MD Attending Clinician Roque Guillermo MD Admitting Clinician Payers Payer Name Policy Type Policy Number Effective Date Expiration Date [employer] [id number] [address] [facility] MEDICAID 00:00:00 BCBS [facility] [place] - [id number] 2022 OUT OF STATE 00:00:00 HTW-[id number] 2021 00:00:00 Problems Condition Condition Condition Status Onset Resolution Last Treating Co mments Source Name Details Category Date Date Treatment Clinician Date Obesity, Obesity, Disease Active Unive rs unspecifie unspecifie 08-31 it y of d d 00:00: [place] classifica classifica 00 Me dical tion, tion, Branch unspecifie unspecifie d obesity d obesity type, type, unspecifie unspecifie d whether d whether serious serious comorbidit comorbidit y present y present BMI BMI Disease Active Univers 26.0-26.9, 26.0-26.9, 3-02 it y of adult adult 00:00: [place] [address] Medical Branch BMI BMI Disease Active Univers 26.0-26.9, 26.0-26.9, 3 it y of adult adult 00:00: [address] Branch Overweight Overweight Disease Active U nivers 3-02 ity of 00:00: [place] [address] Medical Branch Disease Active 2018-07 Univers control control 0-29 [place]y of [place] Diabetes Diabetes Disease Active Unive rs mellitus mellitus 7-01 ity of complicati complicati [place] Medical , , Br anch antepartum antepartum Allergies, Adverse Reactions, Alerts Allergy Allergy Status Severity Reaction(s) Onset Inactive Treating Comm ents Source Name Type Date Date Clinician NO KNOWN Drug Active Univers ALLERGIE Class ity of S [facility] Social History Social Habit Start Date Stop Date Quantity Comments Source History of tobacco Cigarette Smoker University of use [place] [facility] [place] History SDOH University o f Alcohol Frequency [place] [facility] History [facility] University o f Alcohol Std Drinks [facility] History [facility] o f Alcohol Binge [place] [facility] Gender identity Universit y of [facility] Sexual orientation Univer sity of [facility] Exposure to 2022-08-21 2022-08-31 Not sure University SARS-CoV-2 (event) 00:00:00 13:02:00 [facility] Alcohol intake 2022-08-31 2022-08-31 Current drinker Unive rsity of 00:00:00 00:00:00 of alcohol [place] [facility] (finding) [place] Tobacco use and 2022-08-31 2022-08-31 Smokeless Universit y of exposure 00:00:00 00:00:00 tobacco non-user [facility] dical [place] Tobacco Comment 2022-08-31 2022-08-31 quit vaping 08/23 Uni versity of 00:00:00 00:00:00 [facility] History of Social 2022-08-31 2022-08-31 Univers ity of function 00:00:00 00:00:00 [facility] Alcohol Comment 2021-08-31 2021-08-31 socially Universit y of 00:00:00 00:00:00 [facility] Sex Ass[birth year] At [birth year] Universit y of 00:00:00 00:00:00 [facility] Smoking Status Start Date Stop Date Source Ex-smoker 2022-08-31 00:00:00 2022-08-31 00:00:00 Universi ty of [facility] Medications Ordered Filled Start Stop Current Ordering Indication Dosage Frequency Signature Comments Components Source Medication Medication Date Date Medication? Clinician (SIG) Name Name NaCl 0.9% 500mL at 999 Univ ers (NS) bolus 01-26- mL/hr, 500 it y of infusion 06:45: 07:35 mL, IV [place] 500 mL 00 :00 Infusion, Medical ONCE, 1 Branch dose, On Sun01/26/23 at 0145, STAT diphenhydrA 0 2022- No 12.5mg 12.5 mg, Univers MINE 01-26 Slow IV ity of (BENADRYL) 06:45: 06:47 Push, [place] injection 00 :00 ONCE, 1 Medical 12.5 mg dose, On Branch Sun01/26/23 at 0145, SAMINA ketorolac 0 2022- No 30mg 30 mg, Unive rs (TORADOL) 01-26 Slow IV ity of injection 06:45: 06:47 Push, [place] 30 mg 00 :00 ONCE, 1 Medical dose, On Branch Sun01/26/23 at 0145, SAMINA metoclopram 2022- No 5mg 5 mg, Slow Univers nicholas HCl 01-26 IV Push, ity of (REGLAN) 06:45: 06:47 ONCE, 1 [place] injection 5 00 :00 dose, On Medi gely mg [facility] 01/26/23 at 0145, SAMINA acetaminoph 2022- No 1000mg 1,000 mg, Univers en 01-26 Oral, ity of (TYLENOL) 04:45: 04:50 ONCE, 1 [place] tablet 00 :00 dose, On Medical 1,000 mg [facility] 01/25/23 at 2345, SAMINA ferrous 2022-0 Yes [id number] 325mg Take 1 Un zahraa sulfate 325 3-03 tablet by ity of mg (65 mg 00:00: mouth [place] iron[place] 00 the Medical tablet morning Branch and 1 tablet in the evening. ferrous 2022-0 Yes [id number] 325mg Take 1 Un zahraa sulfate 325 3-03 tablet by ity of mg (65 mg 00:00: [place] iron[place] 00 the Medical tablet morning Branch and 1 tablet in the evening. ibuprofen 2020-0 Yes [id number] 800mg Take 1 Univers 800 mg 4-16 tablet by ity of tablet 00:00: mouth 3 00 (three) Medical times Branch daily with meals. ibuprofen 2020-0 Yes [id number] 800mg Take 1 Univers 800 mg 4-16 tablet by ity of tablet 00:00: mouth 3 (three) Medical times Branch daily with meals. ibuprofen 2022- No [id number] 800mg Take 1 Univers 800 mg 4-16 -02 tablet by ity of tablet 00:00: 00:00 mouth 3 [place] 00 :00 (three) Medical times Branch daily with meals. ibuprofen 2022- No [id number] 800mg Take 1 Univers 800 mg 4-16 -02 tablet by ity of tablet 00:00: 00:00 mouth 3 [place] 00 :00 (three) Medical times Branch daily with meals. Yes [id number] 1{tbl} Take 1 Univers vitamin 9-18 tablet by ity of w/FA tablet 00:00: mouth [place] 00 daily. Medical Branch docusate Yes [id number] 240mg Take 1 U nivers calcium 240 9-18 capsule by it y of mg capsule 00:00: mouth once [place] 00 daily as Medical needed for Branch Constipati on. ferrous Yes [id number] 325mg Take 1 Un zahraa sulfate 325 9-18 tablet by ity of mg (65 mg 00:00: mouth 2 [place] iron) 00 (two) Medical tablet times Branch daily. ibuprofen Yes [id number] 600mg Take 1 Univers 600 mg 9-18 tablet by ity of tablet 00:00: mouth [place] 00 every 6 Medical (six) Branch hours as needed for Pain (scale 1-3) or Pain (scale 4-6) (Pain). Take with food or milk. Yes [id number] 1{tbl} Take 1 Univers vitamin 9-18 tablet by ity of w/FA tablet 00:00: mouth [place] 00 daily. Medical Branch docusate Yes [id number] 240mg Take 1 U nivers calcium 240 9-18 capsule by it y of mg capsule 00:00: mouth once [place] 00 daily as Medical needed for Branch Constipati on. ferrous 2019-0 Yes [id number] 325mg Take 1 Un zahraa sulfate 325 9-18 tablet by ity of mg (65 mg 00:00: mouth 2 [place] iron) 00 (two) Medical tablet times Branch daily. ibuprofen Yes [id number] 600mg Take 1 Univers 600 mg 9-18 tablet by ity of tablet 00:00: mouth [place] 00 every 6 Medical (six) Branch hours as needed for Pain (scale 1-3) or Pain (scale 4-6) (Pain). Take with food or milk. 2022- No [id number] 1{tbl} Take 1 Univers vitamin 03-19- tablet by ity of w/FA tablet 00:00: 00:00 [place] 00 :00 daily. Medical Branch docusate 2022- No [id number] 240mg Take 1 Univers calcium 240 03-19 capsule by i ty of mg capsule 00:00: 00:00 mouth once [place] 00 :00 daily as Medical needed for Branch Constipati on. ferrous 2022- No [id number] 325mg Take 1 U nivers sulfate 325 03-19 tablet by it y of mg (65 mg 00:00: 00:00 mouth 2 [place] iron) 00 :00 (two) Medical tablet times Branch daily. ibuprofen 2022- No [id number] 600mg Take 1 Univers 600 mg 03-19 tablet by ity of tablet 00:00: 00:00 mouth [place] 00 :00 every 6 Medical (six) Branch hours as needed for Pain (scale 1-3) or Pain (scale 4-6) (Pain). Take with food or milk. 2022- No [id number] 1{tbl} Take 1 Univers vitamin 03-19 tablet by ity of w/FA tablet 00:00: 00:00 [place] 00 :00 daily. Medical Branch docusate 2022- No [id number] 240mg Take 1 Univers calcium 240 03-19 capsule by i ty of mg capsule 00:00: 00:00 mouth once [place] 00 :00 daily as Medical needed for Branch Constipati on. ferrous 2022- No [id number] 325mg Take 1 U nivers sulfate 325 03-19 tablet by it y of mg (65 mg 00:00: 00:00 mouth 2 [place] iron) 00 :00 (two) Medical tablet times Branch daily. ibuprofen 2022- No [id number] 600mg Take 1 Univers 600 mg 03-19 tablet by ity of tablet 00:00: 00:00 mouth [place] 00 :00 every 6 Medical (six) Branch hours as needed for Pain (scale 1-3) or Pain (scale 4-6) (Pain). Take with food or milk. Immunizations Ordered Filled Immunization Date Status Comments [facility] Immunization Name Name Influenza Virus 2019-04-29 Completed Universit y of Vaccine [place] .5 mL 00:00:00 [place] [facility] IM 6+ MO Branch Influenza Virus 2019-04-29 Completed Universit y of Vaccine [place] .5 mL 00:00:00 [place] [facility] IM 6+ MO Branch Influenza Virus 2019-04-29 Completed Universit y of Vaccine [place] .5 mL 00:00:00 [place] [facility] IM 6+ MO Branch Influenza Virus 2019-04-29 Completed Universit y of Vaccine [place] .5 mL 00:00:00 [place] [facility] IM 6+ MO Branch Influenza Virus 2019-04-29 Completed Universit y of Vaccine [place] .5 mL 00:00:00 [place] [facility] IM 6+ MO Branch Influenza Virus 2019-04-29 Completed Universit y of Vaccine [place] .5 mL 00:00:00 [facility] 6+ MO Branch HPV9 2019-03-19 Completed University of 00:00:00 [facility] HPV9 2019-03-19 Completed University of 00:00:00 [facility] HPV9 2019-03-19 Completed University of 00:00:00 [facility] HPV9 2019-03-19 Completed University of 00:00:00 [facility] HPV9 2019-03-19 Completed University of 00:00:00 [facility] HPV9 2019-03-19 Completed University of 00:00:00 [facility] Rho (d) Immune 2019-03-18 Completed University of Globulin 00:00:00 [facility] Rho (d) Immune 2019-03-18 Completed University of Globulin 00:00:00 [facility] Rho (d) Immune 2019-03-18 Completed University of Globulin 00:00:00 [facility] Rho (d) Immune 2019-03-18 Completed University of Globulin 00:00:00 [facility] Rho (d) Immune 2019-03-18 Completed University of Globulin 00:00:00 [facility] Rho (d) Immune 2019-03-18 Completed University of Globulin 00:00:00 [facility] TDAP 2019-01-13 Completed University of 00:00:00 [facility] Rho (d) Immune 2019-01-13 Completed University of Globulin 00:00:00 [facility] TDAP 2019-01-13 Completed University of 00:00:00 [facility] Rho (d) Immune 2019-01-13 Completed University of Globulin 00:00:00 [facility] Branch TDAP 2019-01-13 Completed University of 00:00:00 [facility] Branch Rho (d) Immune 2019-01-13 Completed University of Globulin 00:00:00 [facility] Branch TDAP 2019-01-13 Completed University of 00:00:00 [facility] Branch Rho (d) Immune 2019-01-13 Completed University of Globulin 00:00:00 [facility] Branch TDAP 2019-01-13 Completed University of 00:00:00 [facility] Branch Rho (d) Immune 2019-01-13 Completed University of Globulin 00:00:00 [facility] TDAP 2019-01-13 Completed University of 00:00:00 [facility] Rho (d) Immune 2019-01-13 Completed University of Globulin 00:00:00 [facility] HPV 2011-02-03 Completed University of 00:00:00 [facility] HPV 2010-12-01 Completed University of 00:00:00 [facility] Td 2008-07-02 Completed University of 00:00:00 [facility] TD, NOS 2008-07-02 Completed University of 00:00:00 [facility] Branch TD, NOS 2008-07-02 Completed University of 00:00:00 [facility] Branch TD, NOS 2008-07-02 Completed University of 00:00:00 [facility] Branch TD, NOS 2008-07-02 Completed University of 00:00:00 [facility] TD, NOS 2008-07-02 Completed University of 00:00:00 [facility] Vital Signs Vital Name Observation Time Observation Value Comments Source Systolic blood 2023-01-26 07:00:00 110 mm[Hg] Univer sity of pressure [facility] Diastolic blood 2023-01-26 07:00:00 67 mm[Hg] Unive rsity of pressure [facility] Heart rate 2023-01-26 07:00:00 98 /min [facility] Body temperature 2023-01-26 07:00:00 37.67 Marya Univ ersity [facility] Respiratory rate 2023-01-26 07:00:00 16 /min [facility] saturation in 2023-01-26 07:00:00 99 /min University of Arterial blood by [facility] Pulse oximetry [place] Body height 2023-01-26 04:11:00 170.2 cm Universi ty of [facility] Body weight 2023-01-26 04:11:00 78.019 kg Universi ty of [facility] BMI 2023-01-26 04:11:00 26.94 kg/m2 Universi ty of [facility] Systolic blood 2022-08-31 19:02:00 120 mm[Hg] Univer sity of pressure [facility] Diastolic blood 2022-08-31 19:02:00 73 mm[Hg] Unive rsity of pressure [facility] Heart rate 2022-08-31 19:02:00 104 /min Universi ty of [facility] Body temperature 2022-08-31 19:02:00 37.06 Marya Univ ersity of [facility] Respiratory rate 2022-08-31 19:02:00 18 /min Univ ersity of [facility] Body height 2022-08-31 19:02:00 170.2 cm Universi ty of [facility] Body weight 2022-08-31 19:02:00 78.427 kg Universi ty of [facility] BMI 2022-08-31 19:02:00 27.08 kg/m2 Universi ty of [facility] Systolic blood 2021-08-31 14:55:00 108 mm[Hg] Univer sity of pressure [facility] Diastolic blood 2021-08-31 14:55:00 85 mm[Hg] Unive rsity of pressure [facility] Heart rate 2021-08-31 14:55:00 84 /min Universi ty of [facility] Body temperature 2021-08-31 14:55:00 36.28 Marya Univ ersity of [facility] Respiratory rate 2021-08-31 14:55:00 16 /min Univ ersity of [facility] Body height 2021-08-31 14:55:00 170.2 cm Universi ty of [facility] Body weight 2021-08-31 14:55:00 76.794 kg Universi ty of [facility] BMI 2021-08-31 14:55:00 26.52 kg/m2 Universi ty of [facility] Procedures Procedure Date / Time Performing Clinician Source Performed BASIC METABOLIC PANEL 2023-01-26 05:31:00 Comfort Rendon [facility] (NA, K, CL, CO2, Medical Branch GLUCOSE, BUN, CREATININE, CA) CBC WITH DIFF 2023-01-26 05:31:00 Comfort Rendon Kensett o [facility] POCT TEST 2023-01-26 04:34:00 Comfort Rendon [facility] URINALYSIS 2023-01-26 04:33:00 Comfort Rendon Kensett o [facility] RAPID STREP SCREEN FOR 2023-01-26 04:33:00 Comfort Rendon [facility] GROUP A [facility] RAPID INFLUENZA A/B 2023-01-26 04:33:00 Comfort Rendon [facility] COVID-19 (ID NOW RAPID 2023-01-26 04:33:00 Comfort Rendon [facility] NOTICE OF PRIVACY 2023-01-26 04:05:46 Doctor Unassigned, No [facility] PRACTICES Name [facility] CONSENT/REFUSAL FOR 2023-01-26 04:04:58 [facility]assigned, [facility] CBC WITH DIFF 2022-08-31 19:44:00 Vonnie Jessica [facility] GLYCOSYLATED HEMOGLOBIN 2022-08-31 19:44:00 Vonnie Jessica [facility] (A1C) [facility] HIV 1/2 AG-AB WITH 2022-08-31 19:44:00 Vonnie Jessica [facility] REFLEX [facility] SYPHILIS IGG/IGM 2022-08-31 19:44:00 Vonnie Jessica [facility] POCT URINALYSIS W/O 2022-08-31 19:03:00 Vonnie Jessica [facility] SPECIFIC GRAVITY [facility] Branch ASSIGNMENT OF BENEFITS 2022-08-31 18:46:11 Doctor Unassigned, No [facility] POCT TEST 2021-08-31 14:57:00 Alice Hewitt [facility] Encounters Start End Encounter Admission Attending Care Care Encounter Source Date/Time Date/Time Type Type Clinicians Facility Department ID 2021-05-01 Emergency [facility] [id number] Univers 13:32:20 ity of [facility] 2023-01-25 2023-01-26 Emergency X JUSTICE [facility] ERT [id number] Univers 23:13:00 02:40:00 CYNISE ity [facility] 2023-01-25 2023-01-26 [facility] [id number] Univers 23:13:00 02:40:00 [facility] [id number] i ty of [place] [id number] [facility] [id number] [address] 2022-11-01 2022-11-01 Outpatient R ARACELY [facility] [id number] Univers 10:30:00 10:30:00 VONNIE espitia [facility] 2022-09-01 2022-09-01 Telephone [facility] [id number] Univers 00:00:00 00:00:00 Vonnie Han SUPERINTENDENT RECREATION [id number] i ty of [facility] [id number] [place] as MATERNAL [id number] Med ical & CHILD [address] [place] [address] 2022-08-31 2022-08-31 Office Provider, OlgaRmchwilmer McknightRUST 1 .[id number] Univers 13:00:00 13:44:33 Visit Dianne Marshall SUPERINTENDENT RECREATION 350.1.13. 10 ity of Vonnie Jessica [facility] [id number] [place] MATERNAL [id number] Med ical & CHILD [address] [place] [address] 2022-08-31 2022-08-31 Outpatient R ARACELY [facility] [id number] Univers 13:00:00 13:44:33 [facility] 2022-08-31 2022-08-31 Orders Doctor [place] [id number] Univers 00:00:00 00:00:00 Only Unassigned, JIM [id number] ity of [place] [facility] [id number] [place] as [id number] [facility] 009 Branch 2021-09-14 2021-09-14 Outpatient R KASH [facility] [id number] Univers 15:00:00 15:00:00 ALICE lopez [facility] 2021-09-14 2021-09-14 Outpatient Sloan HEWITT [facility] [id number] Univers 15:00:00 15:00:00 ALICE lopez [facility] 2021-08-31 2021-08-31 Outpatient R KASH [facility] [id number] Univers 08:30:00 09:43:33 ALICE zamora [facility] 2021-08-31 2021-08-31 Office [facility] [id number] Univers 08:30:00 09:43:33 Visit Alice Lisa SUPERINTENDENT RECREATION [id number] ity [place] [id number] [place] as MATERNAL [id number] [facility] ical & CHILD [address] [place] [address] 2021-08-31 2021-08-31 [facility] [id number] Univers 08:30:00 09:43:33 ALICE zamora [facility] 2020-10-15 2020-10-15 Emergency Bhupinder Cruz [facility] [id number] Univers 20:31:00 21:47:00 [facility] [id number] i ty [facility] [id number] [place] [facility] [id number] [facility] 084 Branch 2019-03-17 2019-03-20 [facility] [id number] Univers 17:56:00 12:12:00 Encounter Roque FERNANDEZ [id number] ity of [facility] [id number] [place] as [id number] [facility] 038 Branch 2019-03-17 2019-03-17 Routine Faculty, [facility] 1.2 .840.114 [id number] Univers 13:20:54 13:59:48 [place] SUPERINTENDENT RECREATION [id number] ity of Visit REGIONAL 4.2.7.2.686 [place] as MATERNAL [id number] [facility] & CHILD [address] [place] [address] 2019-03-17 2019-03-17 Jon Hewitt, [facility] [id number] Univers 00:00:00 00:00:00 Roskaterinenda R SUPERINTENDENT RECREATION [id number] ity of REGIONAL [id number] [place] as MATERNAL [id number] [facility] & CHILD [address] [place] [address] 2019-03-13 2019-03-13 Block Splitter Operator 2, [facility] Us Room UNIVERSIT 1 .2.840.114 [id number] Univers 13:04:18 13:34:18 Visit Tari Florian [facility] 350.1.1 3.10 ity of [place] [facility] 4.2.7.2.686 Tea Flores [id number] 2019-03-13 2019-03-13 Routine [facility], PAMB [id number] Univers 08:54:00 09:54:30 Dianne C SUPERINTENDENT RECREATION [id number] ity of Visit REGIONAL [id number] [place] as MATERNAL [id number] [facility] [facility] [address] [place] [address] 2019-03-10 2019-03-10 Routine Akinsipe, PAMB 1.2.631.896 [id number] Univers 10:15:07 11:55:04 Dianne C SUPERINTENDENT RECREATION 350.1.13.10 ity of Visit REGIONAL 4.2.7.2.686 [place] as MATERNAL [phone] [facility] & CHILD [address] [place] [address] 2019-03-06 2019-03-06 Routine Akinsipe, PAMB 1.2.175.346 [id number] Univers 13:34:08 15:00:26 Dianne C SUPERINTENDENT RECREATION 350.1.13.10 ity of Visit REGIONAL 4.2.7.2.686 Louis as MATERNAL [phone] Med ical & CHILD [address] [facility] 2019-03-06 2019-03-06 Orders Doctor SP 1.2.840.114 [id number] Univers 00:00:00 00:00:00 Only Unassigned, JIM 350.1.13.10 ity of [place] [facility] 4.2.7.2.686 Louis as [phone] [address] 2019-03-04 2019-03-04 Routine Akinsipe, [facility] 1.2.228.721 [id number] Univers 08:10:56 10:28:23 Dianne C SUPERINTENDENT RECREATION 350.1.13.10 ity of Visit REGIONAL 4.2.7.2.686 Louis as MATERNAL [id number] Med ical & CHILD [address] [place] [address] 2019-02-27 2019-02-27 Routine Risk, Pno-Hacyk-He/High [facility] 1. 2.840.114 [id number] Univers 13:00:12 13:53:33 Lorna Priti Youngy SUPERINTENDENT RECREATION 350.1.13.10 ity of Visit REGIONAL 4.2.7.2.686 [place] as MATERNAL [id number] [facility] ical & CHILD [address] [place] [address] 2019-02-20 2019-02-20 Routine Risk, Hmz-Quhje-Yw/High [facility] 1. 2.840.114 [id number] Univers 14:15:12 15:45:50 Cassie Vaughn SUPERINTENDENT RECREATION 350.1.13.10 ity of Visit REGIONAL 4.2.7.2.686 [place] as MATERNAL [phone] [facility] ical & CHILD [address] [place] [address] 2019-02-17 2019-02-17 Routine Akinsipe, [facility] 1.2.988.509 [id number] Univers 09:55:21 11:05:25 Dianne C SUPERINTENDENT RECREATION 350.1.13.10 ity of Visit REGIONAL 4.2.7.2.686 Louis as MATERNAL [id number] [facility] ical & CHILD [address] [place] [address] 2019-02-13 2019-02-13 Routine Risk, Amh-Wiqkq-Sv/High [facility] 1. 2.840.114 [id number] Univers 14:22:37 15:24:44 Priti Rothman SUPERINTENDENT RECREATION 350.1.13.10 ity of Visit [facility] 4.2.7.2.686 Louis as MATERNAL [phone] [facility] & CHILD [address] [place] [address] 2019-02-06 2019-02-06 Block Splitter Operator 2, [facility] Usg Room UNIVERSIT 1 .2.840.114 [id number] Univers 12:58:01 14:15:45 Visit Tari Florian [facility] 350.1.1 3.10 ity of NandoDavid sozua [facility] 4.2.7.2.686 [place] Breonna Fenton [phone] [address] 2019-02-06 2019-02-06 Routine Omar, [facility] Resident UNIVERSIT 1.2.8 40.114 [id number] Univers 10:24:41 12:10:20 Tari Florian [facility] 350.1. 13.10 ity of Visit NandoDavid souza [facility] 4.2.7.2.686 [place] Braxton Marte [phone] [address] 2019-02-06 2019-02-06 [facility] 1.2.840.114 [id number] Univers 00:00:00 00:00:00 Alice Lisa SUPERINTENDENT RECREATION 350.1.13.10 ity of [facility] 4.2.7.2.686 Louis as MATERNAL [phone] [facility] & CHILD [address] [place] [address] 2019-02-04 2019-02-04 Telephone LENCHO Fenton 1.2.840.114 [id number] Univers 00:00:00 00:00:00 Breonna Nieves [facility] 350.1.13.10 ity of CLINICS 4[place]2.7.2.[place] [id number] [facility] [address] 2019-02-03 2019-02-03 Orders Doctor [place] 1.2.840.114 [id number] Univers 00:00:00 00:00:00 Only Unassigned, JIM 350.1.13.10 ity of [place] [facility] 4.2.7.2.686 Louis as [phone] [address] Results Test Description Test Time Test Comments Results Result Comments Source POCT TEST 2023-01-26 04:34:00 Test Item Value Reference Range Interpretation Comme nts POCT PREG (test code = 1605) Negative On board controls acceptable with C Line (test code = 3574) Yes POCT PREG LOT # (test code = 3575) [id number] POCT PREG TEST DATE (test code = 3576) Lab Interpretation (test code = 16357-4) [facility] [id number] 19:04:00 Test Item Value Reference Range Interpretation Comments POCT PH U (test code = 3254) 6 mg/dl 5-8 POCT U LEUK EST (test code = Trace Negative - Negative 3263) POCT U NIT (test code = 3262) Neg Negative - Negative POCT U PROT (test code = 3259) Trace Negative - Negative POCT U GLU (test code = 3256) Neg Negative - Negative POCT U KETONE (test code = 3258) None Negative - Negative POCT U BLD (test code = 3257) Trace Negative - Negative [facility]O SPECIFIC [id number] 19:04:00 Test Item Value Reference Range Interpretation Comments POCT PH U (test code = 3254) 6 mg/dl 5-8 POCT U LEUK EST (test code = Trace Negative - Negative 3263) POCT U NIT (test code = 3262) Neg Negative - Negative POCT U PROT (test code = 3259) Trace Negative - Negative POCT U GLU (test code = 3256) Neg Negative - Negative POCT U KETONE (test code = 3258) None Negative - Negative POCT U BLD (test code = 3257) Trace Negative - Negative [facility] [id number] 14:57:00 Test Item Value Reference Range Interpretation Comments POCT PREG (test code = 1605) Negative On board controls acceptable with C Yes Line (test code = 3574) POCT PREG LOT # (test code = 3575) POCT PREG TEST DATE (test code = 3576) [facility] Notes Date/Time Note Provider Source 2023-01-26 Formatting of this note might be differe nt from the original. Mary Bernstein RN [facility] 02:39:47-00:00 Pt given printed and verbal discharge instructions regarding fever and viral illness Pt verbalized understanding of instructions, pt awake alert oriented, resp reg unlabored, skin w/d, color appropriate for race, moves all ext well,pt encouraged to follow up with pcp Advised to seek medical attention for new/prolon ged/worsening of symptoms No adverse reaction to meds given in ER noted up on discharge PIV d'cd, dressing to site, catheter in tact. Awake, alert oriented, resp reg unlabored, skin w/d, pt leaving amb with steady gait, in no apparent distress 2023-01-25 Formatting of this note might be differe nt from the original. Zane Darby RN [facility] 23:10:14-00:00 Patient CO of fever and chil ls for the past 2 days, denies any N/V or diarrhea.
[2023-01-30] MEDS ORDERED: AZITHROMYCIN 500 MG INJ IVPB ONE (17:35)
[2023-01-30] MEDS ORDERED: NA CHLORIDE 0.9% 250 ML ONE (17:35)
[2023-01-30] MEDS ORDERED: ACETAMINOPHEN 500 MG TAB ONE (17:35)
[2023-01-30] MEDS ORDERED: KETOROLAC 30 MG/ML INJ ONE (17:35)
[2023-01-30] MEDS ORDERED: NA CHLORIDE 0.9% 500 ML ONE (17:35)
[2023-01-30] MEDS ORDERED: NA CHLORIDE 0.9% 2,000 ML ONE (17:35)
[2023-01-30] MEDS ORDERED: CEFTRIAXONE 1000 MG/VIAL ONE (17:49)
[2023-01-30 17:53] LABS: Albumin 3.3 g/dL (3.4-5.0); Bilirubin Total 0.4 mg/dL (0.2-1.0); Potassium 3.4 mEq/L (3.5-5.1); Protein, Total 8.2 g/dL (6.4-8.2)
[2023-01-30 17:55] LABS: Absolute Lymphocytes (CBC) 1.1 K/uL (0.7-4.9); Hematocrit 30.6 % (36.0-45.0); Lymphocytes % 23.3 % (15.3-44.8); MCV 71.1 fL (80-100); MPV 8.6 fL (7.6-11.3)
--- NOTE | 2023-01-30 18:30 | EDPHYS ---
Physician Documentation [facility] Name: Polina Beasley Age: 27 yrs Sex: Female : 1995 Arrival Date: 01/30/2023 Time: 16:50 Bed 6 Private MD: ED Physician Elliott Whitt HPI: 01/30 17:22 This 27 yrs old Female presents to ER via Wheelchair with complaints of tulio Breathing Difficulty, Chest Pain, Headache, Eye Pain. 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 - Social history:: Smoking status: Reported history of juuling and/or vaping. ROS: 17:25 Eyes: Negative for injury, pain, redness, and discharge, ENT: Negative for injury, tulio pain, and discharge, Neck: Negative for injury, pain, and swelling, Abdomen/GI: Negative for abdominal pain, nausea, vomiting, diarrhea, and constipation, Back: Negative for injury and pain, : Negative for injury, bleeding, discharge, and swelling, MS/Extremity: Negative for injury and deformity, Skin: Negative for injury, rash, and discoloration, Psych: Negative for depression, anxiety, suicide ideation, homicidal ideation, and hallucinations, Allergy/Immunology: Negative for hives, rash, and allergies, Endocrine: Negative for neck swelling, polydipsia, polyuria, polyphagia, and marked weight changes, Hematologic/Lymphatic: Negative for swollen nodes, abnormal bleeding, and unusual bruising. 17:25 Constitutional: Positive for body aches, chills, fatigue, fever. 17:25 Cardiovascular: Positive for palpitations. 17:25 Respiratory: Positive for cough, shortness of breath. 17:25 Neuro: Positive for weakness. Exam: 17:25 Constitutional: This is a well developed, well nourished patient who is awake, alert, tulio and in no acute distress. Head/Face: Normocephalic, atraumatic. Eyes: Pupils equal round and reactive to light, extra-ocular motions intact. Lids and lashes normal. Conjunctiva and sclera are non-icteric and not injected. Cornea within normal limits. Periorbital areas with no swelling, redness, or edema. ENT: Nares patent. No nasal discharge, no septal abnormalities noted. Tympanic membranes are normal and external auditory canals are clear. Oropharynx with no redness, swelling, or masses, exudates, or evidence of obstruction, uvula midline. Mucous membranes moist. Neck: Trachea midline, no thyromegaly or masses palpated, and no cervical lymphadenopathy. Supple, full range of motion without nuchal rigidity, or vertebral point tenderness. No Meningismus. Chest/axilla: Normal chest wall appearance and motion. Nontender with no deformity. No lesions are appreciated. Abdomen/GI: Soft, non-tender, with normal bowel sounds. No distension or tympany. No guarding or rebound. No evidence of tenderness throughout. Back: No spinal tenderness. No costovertebral tenderness. Full range of motion. Skin: Warm, dry with normal turgor. Normal color with no rashes, no lesions, and no evidence of cellulitis. MS/ Extremity: Pulses equal, no cyanosis. Neurovascular intact. Full, normal range of motion. Neuro: Awake and alert, GCS 15, oriented to person, place, time, and situation. Cranial nerves II-XII grossly intact. Motor strength 5/5 in all extremities. Sensory grossly intact. Cerebellar exam normal. Normal gait. 17:25 Cardiovascular: Rate: tachycardic, actual rate is 130 bpm, Rhythm: regular, Pulses: Pulses are 4+ in bilateral radial, brachial, femoral, popliteal, posterior tibial and and dorsalis pedis arteries.. Heart sounds: normal, normal S1and S2, no S3 or S4, no murmur, no rub, no gallop, Edema: is not appreciated, JVD: is not appreciated. 17:25 ECG was reviewed by the Attending Physician. Vital Signs: 17:02 BP 120 / 72; Pulse 130; Resp 24; Temp 102.4; Pulse Ox 100% on R/A; cm10 17:22 Weight 86 kg (M); kc6 18:04 BP 111 / 71; Pulse 122; Resp 29 S; Temp 100.4(O); Pulse Ox 98% on R/A; kc6 19:35 BP 119 / 74; Pulse 107; Resp 21 S; Temp 98.7(O); Pulse Ox 100% on R/A; lg3 01/31 00:01 BP 96 / 67; Pulse 92; Resp 18 S; Pulse Ox 99% on R/A; lg3 MDM: 01/30 16:57 Patient medically screened. [facility] 17:27 Differential diagnosis: Anxiety Reaction asthma, Bronchitis Chronic Obstructive tulio Pulmonary Disease pneumonia, reactive airway disease, Sepsis. Antibiotic administration: Rocephin and Zithromax given. Immunization status:. Data reviewed: vital signs, nurses notes, lab test result(s), EKG, radiologic studies, plain films. Consideration of Admission/Observation Patient was admitted/placed on observation. Escalation of care including admission/observation considered. I considered the following discharge prescriptions or medication management in the emergency department Medications were administered in the Emergency Department. See MAR. Independent interpretation of the following test(s) in the Emergency Department EKG: See my EKG interpretation above. Test considered but Not performed: MRI: NO MRI CHEST. Historians other than the Patient: Family Member: MOM, INFORMED. Care significantly affected by the following chronic conditions:. Counseling: I had a detailed discussion with the patient and/or guardian regarding: the historical points, exam findings, and any diagnostic results supporting the discharge/admit diagnosis, lab results, radiology results. 01/30 17:18 Order name: CBC with Diff; Complete Time: 18:16 [facility] 01/30 17:18 Order name: Comprehensive Metabolic Panel; Complete Time: 18:16 [facility] 01/30 17:18 Order name: Lipase; Complete Time: 18:16 [facility] 01/30 17:18 Order name: Urinalysis w/ reflexes; Complete Time: 20:43 [facility] 01/30 17:18 Order name: PREGU; Complete Time: 20:35 [facility] 01/30 17:18 Order name: Blood Culture Adult (2) [facility] 01/30 17:18 Order name: Lactate w/ 2H reflex if indic.; Complete Time: 18:16 [facility] 01/30 17:18 Order name: Strep; Complete Time: 18:16 [facility] 01/30 17:43 Order name: Flu; Complete Time: 19:08 kc6 01/30 17:56 Order name: SARS-COV-2 RT PCR; Complete Time: 19:08 EDMS 01/30 19:47 Order name: Test, Serum la1 01/30 18:18 Order name: US Abdomen Limited; Complete Time: 20:06 [facility] 01/30 18:19 Order name: Chest Single View; Complete Time: 19:15 EDMS 01/30 18:27 Order name: CT Chest W/ Con; Complete Time: 19:08 [facility] 01/30 17:29 Order name: EKG; Complete Time: 17:29 [facility] 01/30 17:29 Order name: EKG - Nurse/Tech; Complete Time: 17:54 [facility] 01/30 18:18 Order name: PO challenge; Complete Time: 19:22 [facility] EC:25 Rate is 133 beats/min. Rhythm is regular. QRS [place] is Normal. PA interval is normal. tulio QRS interval is normal. QT interval is normal. No Q waves. T waves are Normal. No ST changes noted. Clinical impression: NSR w/ Non-specific ST/T Changes and No evidence of ischemia. Interpreted by me. Reviewed by me. Administered Medications: 17:56 Drug: NS 0.9% IV (30 ml/kg) 30 ml/kg Route: IV; Rate: bolus; Site: right antecubital; kc6 19:39 Follow up: IV Status: Completed infusion; IV Intake: 2580ml lg3 17:56 Drug: Acetaminophen PO 1000 mg Route: PO; kc6 19:11 Follow up: Response: No adverse reaction; Temperature is decreased iw 17:56 Drug: Ketorolac IVP 15 mg Route: IVP; Site: right antecubital; kc6 19:11 Follow up: Response: No adverse reaction iw 17:56 Drug: Rocephin IV 2 grams Route: IV; Rate: per protocol; Site: right antecubital; kc6 19:12 Follow up: Response: No adverse reaction; IV Status: Completed infusion; IV Intake: 20mliw 17:56 Drug: Zithromax IVPB 500 mg Route: IVPB; Infused Over: 1 hrs; Site: left antecubital; kc6 19:39 Follow up: IV Status: Completed infusion; IV Intake: 250ml lg3 19:22 Drug: NS 0.9% with KCl IV 20 mEq/L 1000 ml Route: IV; Rate: 125 ml/hr; Site: right lg3 antecubital; 01/31 00:12 Follow up: Response: No adverse reaction; IV Status: Infusion continued upon admission lg3 Disposition Summary: 01/30/23 18:29 Hospitalization Ordered Provider: Ricky Mcdonald cha Condition: Fair tulio Problem: new tulio Symptoms: have improved tulio Bed/Room Type: Standard tulio Hospitalization Status: Observation(01/30/23 18:34) tulio Location: Telemetry/MedSurg (observation)(01/30/23 18:34) tulio Room Assignment: 229(01/30/23 23:46) Diagnosis - Fever, unspecified tulio - Pneumonia due to other specified bacteria - RIGHT LOWER LOBE tulio - Dehydration tulio - Tachycardia, unspecified tulio - Streptococcal pharyngitis tulio - Hypokalemia tulio - Anemia, unspecified tulio Forms: - Medication Reconciliation Form tulio - SBAR form tulio Signatures: Dispatcher [employer] EDMS Elliott Whitt MD MD cha Attema, Lee, MEDICARE CONTACT SPECIALIST-C MEDICARE CONTACT SPECIALIST-Cla1 Priti Martin, RN RN cg Mikki Cartagena RN RN lg3 Elizabeth Beck RN RN kc6 Jill Pope RN RN cm10 Ilda Moody RN iw Corrections: (The following items were deleted from the chart) 01/30 17:54 17:19 COVID-19/FLU A+B+MOL.LAB.BRZ ordered. EDMS EDMS 18:19 17:53 Chest Pa And Lat (2 Views)+RAD.RAD.BRZ ordered. EDMS EDMS 18:34 18:29 Inpatient Admission tulio tulio 18:34 18:29 Telemetry/MedSurg (Inpatient) tulio tulio 18:34 18:29 tulio tulio 23:46 18:34 tulio cg
--- NOTE | 2023-01-30 18:30 | ER ---
Nurse's Notes [facility] Name: Polina Beasley Age: 27 yrs Sex: Female : 1995 Arrival Date: 01/30/2023 Time: 16:50 Bed 6 Private MD: Diagnosis: Fever, unspecified;Pneumonia due to other specified bacteria-RIGHT LOWER LOBE;Dehydration;Tachycardia, unspecified;Streptococcal pharyngitis;Hypokalemia;Anemia, unspecified Presentation: 01/30 17:02 Chief complaint: Patient states: fever X1 week and shortness of breath onset this AM. cm10 Pt states that she was seen at [facility] on Sunday and was diagnosed with a "viral infection" but hasn't gotten better. Coronavirus screen: Vaccine status: Patient reports being unvaccinated. Ebola Screen: No symptoms or risks identified at this time. Initial Sepsis Screen: Does the patient meet any 2 criteria? RR > 20 per min. Temp <36.0*C (96.8*F)) or > 38.3*C (100.9*F). HR > 90 bpm. Does the patient have a suspected source of infection? Yes: Productive cough/pneumonia. Risk Assessment: Do you want to hurt yourself or someone else? Patient reports no desire to harm self or others. Onset of symptoms was January 30, 2023. 17:02 Method Of Arrival: Wheelchair 10 17:02 Acuity: LARRY 3 cm10 [employer]: 17:05 LMP 01/24/2023 cm10 Historical: - Allergies: 17:05 No Known Allergies; cm10 - Home Meds: 17:05 None [Active]; cm10 - PMHx: 17:05 None; cm10 - PSHx: 17:05 None; cm10 - Immunization history:: Adult Immunizations. - Social history:: Smoking status: Reported history of juuling and/or vaping. Screenin:05 [facility] ED Fall Risk Assessment (Adult) History of falling in the last 3 months, kc6 including since admission No falls in past 3 months (0 pts) Confusion or Disorientation No (0 pts) Intoxicated or Sedated No (0 pts) Impaired Gait No (0 pts) Mobility Assist Device Used No (0 pt) Altered Elimination No (0 pt) Score/Fall Risk Level 0 - 2 = Low Risk. Abuse screen: Denies threats or abuse. Denies injuries from another. Nutritional screening: No deficits noted. Tuberculosis screening: No symptoms or risk factors identified. Assessment: 17:04 Reassessment: CODE SEPSIS CALLED. cm10 17:05 General: Appears distressed, uncomfortable, ill, Behavior is cooperative, appropriate kc6 for age, crying. Pain: Complains of pain in chest, headache, left eye Pain does not radiate. Pain currently is 10 out of 10 on a pain scale. Neuro: Montes Agitation-Sedation Scale (RASS): 0 - Alert and Calm Level of Consciousness is awake, alert, obeys commands, Oriented to person, place, time, situation, Appropriate for age. Cardiovascular: Reports chest pain, shortness of breath, Heart tones S1 S2 present Capillary refill < 3 seconds Rhythm is sinus tachycardia. Respiratory: Reports shortness of breath cough that is non-productive, Airway is patent Trachea midline Respiratory effort is even, unlabored, Respiratory pattern is symmetrical, tachypnea Breath sounds are clear bilaterally. GI: Reports nausea, vomiting, Patient currently denies diarrhea. : No signs and/or symptoms were reported regarding the genitourinary system. EENT: No signs and/or symptoms were reported regarding the EENT system. Derm: No signs and/or symptoms reported regarding the dermatologic system. Skin is intact, is healthy with good turgor, Skin is pink, warm \\T\\ dry. Musculoskeletal: No signs and/or symptoms reported regarding the musculoskeletal system. Circulation, motion, and sensation intact. Capillary refill < 3 seconds, Range of motion: intact in all extremities. 18:03 Reassessment: Patient appears in no apparent distress at this time. No changes from kc6 previously documented assessment. Patient and/or family updated on plan of care and expected duration. Pain level reassessed. Patient is alert, oriented x 3, equal unlabored respirations, skin warm/dry/pink. 19:22 General: Appears in no apparent distress. uncomfortable, Behavior is calm, cooperative. lg3 Pain: Complains of pain in head and chest. Neuro: No deficits noted. Montes Agitation-Sedation Scale (RASS): 0 - Alert and Calm Level of Consciousness is awake, alert, obeys commands, Oriented to person, place, time, situation. Cardiovascular: No deficits noted. Reports chest pain, Heart tones S1 S2 present Capillary refill < 3 seconds Clubbing of nail beds is absent JVD is absent Patient's skin is warm and dry. Rhythm is sinus tachycardia. Respiratory: No deficits noted. Airway is patent Respiratory effort is even, unlabored, Respiratory pattern is regular, symmetrical, Breath sounds are clear bilaterally. GI: No deficits noted. Abdomen is round non-distended. : No deficits noted. No signs and/or symptoms were reported regarding the genitourinary system. EENT: Reports difficulty swallowing. Derm: No deficits noted. No signs and/or symptoms reported regarding the dermatologic system. Skin is intact, is healthy with good turgor, Skin is dry, Skin is normal, Skin temperature is warm. Musculoskeletal: No deficits noted. No signs and/or symptoms reported regarding the musculoskeletal system. Circulation, motion, and sensation intact. Capillary refill < 3 seconds, Range of motion: intact in all extremities. Vital Signs: 17:02 BP 120 / 72; Pulse 130; Resp 24; Temp 102.4; Pulse Ox 100% on R/A; cm10 17:22 Weight 86 kg (M); kc6 18:04 BP 111 / 71; Pulse 122; Resp 29 S; Temp 100.4(O); Pulse Ox 98% on R/A; kc6 19:35 BP 119 / 74; Pulse 107; Resp 21 S; Temp 98.7(O); Pulse Ox 100% on R/A; lg3 08 00:01 BP 96 / 67; Pulse 92; Resp 18 S; Pulse Ox 99% on R/A; lg3 ED Course: 01/30 16:53 Patient arrived in ED. mg5 16:57 Elliott Whitt MD is Attending Physician. tulio 17:00 Fanny Zheng, RAMBO is Primary Nurse. aa5 17:04 Triage completed. cm10 17:05 Arm band placed on Patient placed in an exam room, on a stretcher, on pulse oximetry. cm10 17:05 Patient has correct armband on for positive identification. Bed in low position. Call kc6 light in reach. Side rails up X2. Adult w/ patient. 17:54 Elizabeth Beck, RN is Primary Nurse. kc6 17:57 Inserted saline lock: 18 gauge in right antecubital area, using aseptic technique. kc6 Blood collected. Inserted saline lock: 20 gauge in left antecubital area, using aseptic technique. Blood collected. 18:15 Radiology exam delayed due to patient is not appropriately dressed for the exam at this jk time. Had to change order to do portable due to pt unable to stand. 18:27 Ricky Mcdonald MD is Hospitalizing Provider. tulio 18:40 Chest Single View In Process Unspecified. EDMS 18:40 CT Chest W/ Con In Process Unspecified. EDMS 19:00 Report given to RAMBO Schmidt \\T\\ RAMBO Kaye. iw 19:22 Door closed. Noise minimized. Family accompanied patient. lg3 19:22 Patient maintains SpO2 saturation greater than 95% on room air. lg3 19:53 US Abdomen Limited In Process Unspecified. EDMS 08 00:11 No provider procedures requiring assistance completed. Patient admitted, IV remains in lg3 place. intact, No redness/swelling at site. 00:25 Provided Education on: need for admit. as6 Administered Medications: 01/30 17:56 Drug: NS 0.9% IV (30 ml/kg) 30 ml/kg Route: IV; Rate: bolus; Site: right antecubital; kc6 19:39 Follow up: IV Status: Completed infusion; IV Intake: 2580ml lg3 17:56 Drug: Acetaminophen PO 1000 mg Route: PO; kc6 19:11 Follow up: Response: No adverse reaction; Temperature is decreased iw 17:56 Drug: Ketorolac IVP 15 mg Route: IVP; Site: right antecubital; kc6 19:11 Follow up: Response: No adverse reaction iw 17:56 Drug: Rocephin IV 2 grams Route: IV; Rate: per protocol; Site: right antecubital; kc6 19:12 Follow up: Response: No adverse reaction; IV Status: Completed infusion; IV Intake: 20mliw 17:56 Drug: Zithromax IVPB 500 mg Route: IVPB; Infused Over: 1 hrs; Site: left antecubital; kc6 19:39 Follow up: IV Status: Completed infusion; IV Intake: 250ml lg3 19:22 Drug: NS 0.9% with KCl IV 20 mEq/L 1000 ml Route: IV; Rate: 125 ml/hr; Site: right lg3 antecubital; 01/31 00:12 Follow up: Response: No adverse reaction; IV Status: Infusion continued upon admission lg3 Medication: 01/30 19:22 VIS not applicable for this client. lg3 Intake: 19:12 IV: 20ml; Total: 20ml. iw 19:39 IV: 250ml; Total: 270ml. lg3 19:39 IV: 2580ml; Total: 2850ml. lg3 Outcome: 18:29 Decision to Hospitalize by Provider. tulio 01/31 00:11 Admitted to Med/surg accompanied by tech, via wheelchair, room 229, Report called to [facility] Condition: stable Instructed on the need for admit, Demonstrated understanding of instructions. 00:25 Patient left the ED. as6 Signatures: Dispatcher [employer] EDElliott Hand MD MD cha Williams, Irene, RN Fanny Man RN RN Vivek Lr Lacie, RN RN lg3 Brayan Alicia RN RN as6 Campbell, Kaitlyn, RN RN kc6 Martinez, Clarissa, RN RN cm10 Gardner, Madison 5 Corrections: (The following items were deleted from the chart) 01/30 18:31 18:04 BP 111 / 71; Pulse 122bpm; Resp 29bpm; Spontaneous; Pulse Ox 98% RA; julieta rendon
--- NOTE | 2023-01-30 19:07 | RAD REPORT ---
EXAM DESCRIPTION: CT - Thorax W/ Chema - 01/30/2023 6:38 pm CLINICAL HISTORY: Chest pain COMPARISON: 2019 TECHNIQUE: Computed axial tomography of the chest was obtained. 100 cc Isovue 300 was administered i ntravenously. All CT scans are performed using dose optimization technique as appropriate and may include automated exposure control or mA/KV adjustment according to patient size. FINDINGS: 3.1 centimeter opacity right upper lobe. Left lung is clear Several small mediastinal lymph nodes. A pleural effusion is not present. A pericardial effusion is not seen. IMPRESSION: 3.1 centimeter opacity right upper lobe. This may represent neoplasm or pneumonia. Several small mediastinal lymph nodes could be reactive or neoplastic. Nuclear medicine PET-CT scan would be helpful for further evaluation
--- NOTE | 2023-01-30 19:10 | RAD REPORT ---
EXAM DESCRIPTION: Hany Single View01/30/2023 6:36 pm CLINICAL HISTORY: Fever COMPARISON: CT January 30, 2023 FINDINGS: 3.1 centimeter right upper lobe opacity is better seen on the CT scan same date. Please re tamir to the CT report for recommendation Left lung appears clear. Heart is normal size
[2023-01-30] MEDS ORDERED: NS KCL 20MEQ 1,000 ML IV ONE (19:24)
--- NOTE | 2023-01-30 20:00 | RAD REPORT ---
EXAM DESCRIPTION: US - Abdomen Exam Limited - 01/30/2023 7:51 pm CLINICAL HISTORY: Abdominal pain. COMPARISON: 2019 FINDINGS: Multiple gallstones. Gallbladder wall is not thickened The biliary tree is normal caliber. IMPRESSION: Cholelithiasis
[2023-01-30 20:18] LABS: Specific Gravity 1.022 (1.005-1.030)
[2023-01-30 20:38] LABS: Specific Gravity 1.022 (1.005-1.030); Urine Bacteria 20-50 /HPF (<20); Urine Bilirubin NEGATIVE (Negative); Urine Blood Negative (Negative); Urine Clarity Turbid (Clear); Urine Color Light-Yellow (Yellow); Urine Glucose NEGATIVE (Negative); Urine Protein NEGATIVE (Negative); Urine Urobilinogen Normal (Normal)
--- NOTE | 2023-01-30 20:45 | P.HP ---
Certification for Inpatient Patient admitted to: Observation With expected LOS: <2 Midnights Patient will require the following post-hospital care: None Practitioner: I am a practitioner with admitting privileges, knowledge of patient current condition, hospital course, and medical plan of care. Services: Services provided to patient in accordance with Admission requirements found in Title 42 Section 412.3 of the Code of Federal Regulations Patient History Date of Service: 01/30/23 Reason for admission: Pneumonia History of Present Illness: 27-year-old otherwise healthy female presented to the emergency department with chief complaint of malaise, fevers, weakness, shortness of breath. She was seen at [facility] on the which is when her fevers began and was diagnosed with a viral infection but has continued to get worse since then. She has not recently been on any antibiotics. She was evaluated in the emergency department her labs were significant for sodium 127 potassium 3.4 chloride 97 AST 123 ALT 181 hemoglobin 9.9 hematocrit 30.6 strep positive COVID-negative abdominal ultrasound shows cholelithiasis CT chest without contrast was performed which revealed 3.1 cm opacity right upper lobe. This may represent neoplasm or pneumonia. Several small mediastinal lymph nodes could be reactive or neoplastic. Nuclear medicine PET/CT would be helpful for further evaluation. Patient was febrile, tachycardic and appeared quite ill upon presentation. ED provider wishes to admit under observation as patient remains tachycardic and ill appearance despite rehydration. - Past Medical/Surgical History -: None -: None Psychosocial/ Personal History: Patient is employed in , lives at home with family - Family History Family History: Reviewed- Non-Contributory - Social History Smoking Status: Current every day smoker (Vape) Alcohol use: No CD- Drugs: No Caffeine use: Yes Place of Residence: Home Review of Systems 10-point ROS is otherwise unremarkable General: Fever, Chills, Weakness, Malaise Respiratory: Cough, Shortness of Breath Physical Examination - Physical Exam General: Alert, In no apparent distress, Oriented x3 HEENT: Atraumatic, PERRLA, Mucous membr. moist/pink, EOMI, Sclerae nonicteric Neck: Supple, 2+ carotid pulse no bruit, No LAD, Without JVD or thyroid abnormality Respiratory: Clear to auscultation bilaterally, Normal air movement Cardiovascular: Regular rate/rhythm, Normal S1 S2 Gastrointestinal: Normal bowel sounds, No tenderness Musculoskeletal: No tenderness Integumentary: No rashes Neurological: Normal gait, Normal speech, Normal strength at 5/5 x4 extr, Normal tone, Normal affect Lymphatics: No axilla or inguinal lymphadenopathy - Studies Laboratory Data (last 24 hrs) 01/30/23 01/30/23 17:25 17:25 WBC 4.90 Hgb 9.9 L Hct 30.6 L Plt Count 166 Sodium 127 L Potassium 3.4 L BUN 7 Creatinine 0.54 L Glucose 114 H Total Bilirubin 0.4 AST 123 H ALT 181 H Alkaline Phosphatase 78 Lipase 45 Microbiology Data (last 24 hrs): 01/30/23 17:54 Nasopharnyx Influenza Type A Antigen Screen - Final 01/30/23 17:54 Nasopharnyx Influenza Type B Antigen Screen - Final 01/30/23 17:25 Throat Group A Streptococcus Rapid Screen - Final Assessment and Plan - Plan Assessment: Strep pharyngitis, pneumonia, fevers Hyponatremia, hypokalemia Elevated aminotransferase levels Plan: Strep pharyngitis, pneumonia, fevers Continue IV fluids, IV antibiotics Rocephin/Zithromax. Discussed findings on CT scan including recommendation for additional imaging at follow-up with PCP given CT cannot differentiate between pneumonia and malignancy currently. Hyponatremia, hypokalemia Given 3 L of fluids in ED, continue IV fluids overnight, potassium replaced. Repeat electrolytes in the morning. Elevated aminotransferase levels Abdominal ultrasound was performed to evaluate gallbladder, cholelithiasis without signs of cholecystitis or biliary ductal dilatation. No abdominal pain currently. Patient has been taking Tylenol for fevers. Monitor LFTs, outpatient follow-up. DVT PPX: Lovenox Code status: Full Discharge Plan: Home Plan to discharge in: 24 Hours - Advance Directives Does patient have a Living Will: No Does patient have a Durable POA for Healthcare: No - Code Status/Comfort Care Code Status Assessed: Yes (Full code) Critical Care: No Time Spent Managing Pts Care (In Minutes): 55
[2023-01-31 00:40] VITALS: BMI 29.0
[2023-01-31] MEDS ORDERED: ONDANSETRON 4 MG/2 ML VIAL IV PRN (00:52)
[2023-01-31] MEDS: NA CHLORIDE 0.9% 1,000 ML IV SCH ×3 (01:24→20:10)
[2023-01-31] MEDS: ACETAMINOPHEN 500 MG TAB PO PRN ×3 (01:28→11:51)
[2023-01-31 03:16] LABS: Absolute Lymphocytes (CBC) 1.1 K/uL (0.7-4.9); Hematocrit 26.7 % (36.0-45.0); Lymphocytes % 26.5 % (15.3-44.8); MCV 71.9 fL (80-100); RBC Red Blood Cell Count 3.71 M/uL (3.86-4.86)
[2023-01-31 03:47] LABS: Albumin 2.7 g/dL (3.4-5.0); Bilirubin Total 0.3 mg/dL (0.2-1.0); Potassium 3.6 mEq/L (3.5-5.1); Protein, Total 6.8 g/dL (6.4-8.2)
--- NOTE | 2023-01-31 07:11 | P.PN ---
Date of Service: 01/31/23 Subjective: feels about the same as yesterday chest pressure and sore throat; worsened with coughing Febrile today 101.2 minimal appetite ROS: 10 point ROS as noted above, otherwise negative Physical Exam: GEN: Alert, oriented, fatigued appearing HEENT: Normal conjunctiva, sclera anicteric CV: Regular rate and rhythm, no edema Pulm: Nonlabored respirations on room air, clear bilaterally, +nonproductive cough ABD: Soft, nontender, nondistended Integumentary: several small papules / maculopapular rash mostly on arms bilaterally with spread to chest and mildly on thighs Neuro: Normal speech, normal affect vitals reviewed Problem List: Strep pharyngitis, pneumonia Hyponatremia Hypokalemia Elevated aminotransferase levels Strep pharyngitis, pneumonia CXR (01/30): 3.1 centimeter right upper lobe opacity CT chest (01/30): 3.1cm opacity right upper lobe. neoplasm vs. pneumonia. Several small mediastinal lymph nodes could be reactive or neoplastic recommend f/u imaging with PCP for further evaluation given CT cannot differentiate between pneumonia and malignancy currently. Pulmonology consulted Continue IVF Continuie IV Rocephin/Zithromax (01/31-) New diffuse redness on extremities noted; +no itch/discomfort 01/31 not classic for urticarial rash, somewhat more appearance of scarlet fever / rashh Monitor for possible drug rash / allergy - will switch abx if worsening / no improvement Febrile today (101.2) no leukocytosis Added PRN robitussin 01/31 PRN pain medication Hyponatremia Hypokalemia Given 3 L of fluids in ED continue IVF improving Elevated aminotransferase levels Abdominal u/s (01/30): cholelithiasis without signs of cholecystitis or biliary ductal dilatation. Patient has been taking Tylenol for fevers. No abdominal pain currently. Monitor LFTS VTE: Lovenox Code: Full Dispo: Home ~1-2 days Pending further improvement, afebrile > 24 hours
[2023-01-31 07:44] LABS: Ferritin 183.4 ng/mL (8-388)
[2023-01-31] MEDS ORDERED: CEFTRIAXONE 1,000 MG in NA CHLORIDE 0.9% 50 ML IVPB SCH (09:00)
[2023-01-31] MEDS ORDERED: POTASSIUM CL SA 10 MEQ TAB PO ONE (09:00)
[2023-01-31] MEDS ORDERED: AZITHROMYCIN IV 500 MG in NA CHLORIDE 0.9% 250 ML IVPB SCH (09:00)
[2023-01-31] MEDS ORDERED: AZITHROMYCIN 500 MG INJ IVPB ONE (09:43)
[2023-01-31] MEDS: ENOXAPARIN 40 MG/0.4 ML SQ SCH (09:58)
--- NOTE | 2023-01-31 11:39 | P.CNS ---
Date of Consult: 01/31/23 Reason for Consult: Fever possible pneumonia Chief Complaint: Pneumonia History of Present Illness: Is 27 years of age admitted with fever and shortness of breath and ended up at [facility] last week with fever and chills shortness of breath chest discomfort diagno sed with a viral infection and discharged home became worse continued to have fever and chills admitted from the hospital does have a right apical infiltrate continues to have fever addition to hyponatremia hypokalemia abnormal LFTs Allergies No Known Allergies Allergy (Unverified 01/31/23 00:43) Home Medications: NK [No Home Meds] 01/31/23 - Past Medical/Surgical History -: None -: None Psychosocial/ Personal History: Patient is employed in , lives at home with family - Social History Smoking Status: Never smoker Alcohol use: No CD- Drugs: No Caffeine use: Yes Place of Residence: Home Review of Systems General: Fever, Weakness Respiratory: Cough, Shortness of Breath Physical Examination Temp Pulse Resp BP Pulse Ox 99.6 F 110 H 16 93/54 L 98 01/31/23 08:00 01/31/23 08:00 01/31/23 08:00 01/31/23 08:00 01/31/23 08:00 General: Alert, In no apparent distress, Oriented x3, Cachectic Neck: Supple Respiratory: Clear to auscultation bilaterally, Normal air movement Cardiovascular: No edema, Normal pulses, Regular rate/rhythm Gastrointestinal: Normal bowel sounds, Soft and benign Laboratory Data (last 24 hrs) 01/30/23 01/30/23 17:25 17:25 WBC 4.90 Hgb 9.9 L Hct 30.6 L Plt Count 166 Sodium 127 L Potassium 3.4 L BUN 7 Creatinine 0.54 L Glucose 114 H Total Bilirubin 0.4 AST 123 H ALT 181 H Alkaline Phosphatase 78 Lipase 45 - Problems (1) Pneumonia Current Visit: Yes Status: Acute Plan: Patient is 27 years of age admitted with fever chills shortness of breath chest discomfort have a right apical mass/infiltrate patient to abnormal LFTs fever tach microcytic anemia signs are stable continue with IV antibiotics minimal adenopathy wait until fever subsides strep screen is positive Qualifiers: Pneumonia type: due to unspecified organism Laterality: right
[2023-01-31] MEDS: GUAIFENESIN/CODEINE 5ML UCUP PO PRN (20:11)
[2023-02-01] MEDS: ACETAMINOPHEN 500 MG TAB PO PRN ×3 (00:09→17:36)
[2023-02-01 03:43] LABS: Absolute Lymphocytes (CBC) 2.7 K/uL (0.7-4.9); Hematocrit 27.3 % (36.0-45.0); Lymphocytes % 39.9 % (15.3-44.8); MCV 72.2 fL (80-100); MPV 8.7 fL (7.6-11.3); RBC Red Blood Cell Count 3.78 M/uL (3.86-4.86)
[2023-02-01 03:51] LABS: Albumin 2.6 g/dL (3.4-5.0); Bilirubin Total 0.2 mg/dL (0.2-1.0); Potassium 3.5 mEq/L (3.5-5.1); Protein, Total 6.7 g/dL (6.4-8.2)
[2023-02-01] MEDS: NA CHLORIDE 0.9% 1,000 ML IV SCH (06:18)
--- NOTE | 2023-02-01 07:12 | P.PN ---
Date of Service: 02/01/23 Subjective: feeling a little better, rash resolved diet improving still tachycardic, bp low/borderline no nausea / vomiting / diarrhea ROS: 10 point ROS as noted above, otherwise negative Physical Exam: GEN: Alert, oriented, fatigued appearing HEENT: Normal conjunctiva, sclera anicteric CV: sinus tachycardia, no edema Pulm: Nonlabored respirations on room air, clear bilaterally, +nonproductive cough ABD: Soft, nontender, nondistended Integumentary: no rash Neuro: Normal speech, normal affect vitals reviewed Problem List: Infectious mononucleosis Strep + RUL opacity Hyponatremia Hypokalemia Elevated LFTs likely secondary to mono Iron deficiency Anemia Infectious mononucleosis Strep + RUL opacity CXR (01/30): 3.1cm right upper lobe opacity CT chest (01/30): 3.1cm opacity right upper lobe. neoplasm vs. pneumonia. Several small mediastinal lymph nodes could be reactive or neoplastic recommend f/u imaging with PCP for further evaluation given CT cannot differentiate between pneumonia and malignancy currently history and rash concerning for mono > strep monospot positive on 01/31 rash secondary to cephalosporin, possibly azithro stopped antibioticis consulted ID for further recommendation; ?levaquin for pneumonia Pulmonology following Continue IVF - still tachycardic and borderline BP cont PRN robitussin PRN pain medication Elevated LFTs likely secondary to mono Abdominal u/s (01/30): cholelithiasis without signs of cholecystitis or biliary ductal dilatation. Patient has been taking Tylenol for fevers. No abdominal pain currently. 02/01 - Mononucleosis+ Monitor LFTS - improving Hyponatremia Hypokalemia Given 3 L of fluids in ED continue IVF resolved Iron deficiency Anemia; acute on chronic Monitor H&H. transfuse if hgb < 7 iron supplementation on discharge VTE: Lovenox Code: Full Dispo: Home ~1 day Pending further improvement
--- NOTE | 2023-02-01 08:54 | P.CNS ---
Date of Consult: 02/01/23 Reason for Consult: +[place] and +strep Chief Complaint: Pneumonia History of Present Illness: Patient is a 27 yo female with no significant medical history who presented to the ED with complaints of fever, malaise and shortness of breath. CT chest w contrast revealing "3.1 centimeter opacity right upper lobe. This may represent neoplasm or pneumonia. Several small mediastinal lymph nodes could be reactive or neoplastic." [place] screen positive and Group A rapid screen positive. Infectious disease was consulted Allergies No Known Allergies Allergy (Unverified 01/31/23 00:43) Home medications list reviewed: Yes Home Medications: NK [No Home Meds] 01/31/23 - Past Medical/Surgical History -: None -: None Psychosocial/ Personal History: Patient is employed in , lives at home with family - Social History Smoking Status: Never smoker Alcohol use: No CD- Drugs: No Caffeine use: Yes Place of Residence: Home Review of Systems 10-point ROS is otherwise unremarkable General: Malaise ENT: Throat Swelling Respiratory: Cough (mild) Gastrointestinal: Other (decreased appetite) Genitourinary: Unremarkable Musculoskeletal: Unremarkable Integumentary: Unremarkable Neurological: Unremarkable Physical Examination Temp Pulse Resp BP Pulse Ox 98.6 F 104 H 18 103/54 L 100 02/01/23 00:00 01/31/23 20:00 02/01/23 04:00 02/01/23 04:00 02/01/23 04:00 General: Alert, In no apparent distress, Oriented x3 HEENT: Atraumatic, Normocephalic Neck: Supple, JVD not distended Respiratory: Clear to auscultation bilaterally, Normal air movement (room air) Cardiovascular: No edema, Normal pulses, Regular rate/rhythm Gastrointestinal: Normal bowel sounds, Soft and benign, Non-distended Musculoskeletal: No clubbing, No swelling Integumentary: No rashes, No breakdown Neurological: Normal speech, Normal strength at 5/5 x4 extr, Normal tone, Normal affect Laboratory Data - Reviewed Microbiology Data - Reviewed Imagings Data: - Reviewed Conclusions/Impression: Problem List Streptococcal pharyngitis Pneumonia, Strep Mononucleosis Positive Anemia Moderate PCM Pharyngitis, Pneumonia - Streptococcal - Group A Rapid Screen 01/30: Positive - CT Chest w contrast 01/30: "3.1 centimeter opacity right upper lobe. This may represent neoplasm or pneumonia. Several small mediastinal lymph nodes could be reactive or neoplastic." - Pulmonology on case - Patient was started on Rocephin and Azithromycin then developed rash on arms and chest 01/31. Rocephin and Azithromycin were discontinued. Blood cultures 01/30: No growth to date 24 hour Tmax 101.2 No leukocytosis Influenza A & B Screen 01/30: Negative Recommendations - Recommend starting patient on Levofloxacin 750mg PO Q24H. We will avoid penicillins and cephalosporins due to concomitant Mononucleosis to avoid adverse reaction of rash. - Right upper lobe opacity: follow up with pulmonology as outpatient in 2 weeks - Decreased appetite: supplemental nutrition as needed - Maintain adequate hydration - PRN tylenol for fever Case discussed with Mora Marina
[2023-02-01] MEDS ORDERED: POTASSIUM CL SA 10 MEQ TAB PO ONE (09:00)
[2023-02-01] MEDS: ENOXAPARIN 40 MG/0.4 ML SQ SCH (09:35)
[2023-02-01] MEDS: GUAIFENESIN/CODEINE 5ML UCUP PO PRN (09:35)
--- NOTE | 2023-02-01 12:57 | P.PN ---
Subjective Date of Service: 02/01/23 Chief Complaint: Pneumonia Subjective: Improving (Patient is doing somewhat better still little short of breath coughing) Review of Systems General: Fever, Weakness Respiratory: Cough, Shortness of Breath Physical Examination - Vital Signs Temperature: 99.4 F Blood Pressure: 100/59 Pulse: 103 Respirations: 19 Pulse Ox (%): 100 - Physical Exam General: Alert, In no apparent distress, Oriented x3 Respiratory: Clear to auscultation bilaterally Cardiovascular: No edema, Regular rate/rhythm, Normal S1 S2 Assessment And Plan - Current Problems (Diagnosis) (1) Pneumonia Current Visit: Yes Status: Acute Plan: Patient is 27 years of age admitted with fever while LFTs right upper lobe infiltrate he has underlying Sergo-Kang virus infection and treatment with doxycycline use [id number] nonsteroidals plan for discharge follow-up with me in 2 weeks patient is a negative has mild microcytic anemia monotest is positive will count for abnormal LFTs Qualifiers: Pneumonia type: due to unspecified organism Laterality: right
[2023-02-01] MEDS ORDERED: levoFLOXacin 750 MG TAB PO ONE (13:04)
[2023-02-01] MEDS ORDERED: NA CHLORIDE 0.9% 500 ML IV ONE (17:02)
[2023-02-01 21:47] VITALS: O2SAT 98
[2023-02-02 03:55] LABS: Absolute Lymphocytes (CBC) 2.9 K/uL (0.7-4.9); Hematocrit 26.5 % (36.0-45.0); Lymphocytes % 43.1 % (15.3-44.8); MCV 72.4 fL (80-100); MPV 8.5 fL (7.6-11.3); RBC Red Blood Cell Count 3.66 M/uL (3.86-4.86)
[2023-02-02 04:15] LABS: Albumin 2.5 g/dL (3.4-5.0); Bilirubin Total 0.2 mg/dL (0.2-1.0); C-Reactive Protein 68.1 mg/L (<3.00); Potassium 3.7 mEq/L (3.5-5.1); Protein, Total 6.7 g/dL (6.4-8.2)
[2023-02-02 06:43] LABS: Anisocytosis 1+; Blood Morphology Comment NOTED (NOT SEEN); Platelet Estimate ADEQ; White Blood Cell Scan OK (OK)
--- NOTE | 2023-02-02 07:36 | P.DS ---
Admission Date: 02/01/23 Discharge Date: 02/02/23 Disposition: ROUTINE DISCHARGE Discharge Condition: GOOD Reason for Admission: Pneumonia Consultations: Pulmonology - Dr. Samuels Infectious Disease - Dr. Colmenares Brief History of Present Illness: 27 yo F, PMH: None Patient presented to the emergency department with chief complaint of malaise, fevers, weakness, shortness of breath. She was seen at [facility] on the which is when her fevers began and was diagnosed with a viral infection but has continued to get worse since then. She has not recently been on any antibiotics. She was evaluated in the emergency department her labs were significant for sodium 127 potassium 3.4 chloride 97 AST 123 ALT 181 hemoglobin 9.9 hematocrit 30.6 strep positive COVID-negative abdominal ultrasound shows cholelithiasis CT chest without contrast was performed which revealed 3.1 cm opacity right upper lobe. This may represent neoplasm or pneumonia. Several small mediastinal lymph nodes could be reactive or neoplastic. Nuclear medicine PET/CT would be helpful for further evaluation. Patient was febrile, tachycardic and appeared quite ill upon presentation. Hospital Course: Problem List: Infectious mononucleosis Strep + 3.1cm right upper lobe opacity Hyponatremia, resolved Hypokalemia, resolved Elevated LFTs likely secondary to mono and excessive tylenol use Iron deficiency Anemia Patient presented with fever, weakness, malaise, shortness of breath. CT chest revealed a 3.1cm opacity right upper lobe and she was noted to be strep+ in the ED. She was treated for strep pharyngitis and presumed pneumonia with IV rocephin and zithromax. She was also noted to have mild elevation of her LFTs and developed a rash the morning after admission. On further discussion, the patient's symptoms and lab/imaging findings were more consistent with mono. Patient was tested and found to be positive on mono screen. Patient may be a strep carrier. ID and Pulmonology were consulted. Antibiotics were changed to levaquin, which patient tolerated well. Throughout hospitalization, her heart rate and blood pressure improved and became stable. Fever improved, and she was without leukocytosis. LFTs were mildly elevated, she did not have any RUQ abdominal pain. U/S noted multiple gallstones without any evidence of obstruction or gallbladder wall thickening. Suspected to be secondary to mono and the amount of tylenol she was taking (reported ~3.5-4.5g/day). Advised to minimize tylenol intake and get repeat bloodwork in the next 1-2 weeks to follow up on resolution of these elevated LFTs. She was also noted to be anemic. Workup consistent with severe iron deficiency. She reported history of iron deficiency, has not been on iron supplementation consistently lately. Advised daily iron supplementation. Follow up with PCP for repeat iron studies in ~2-3 months. New medications: Levaquin Ferrous sulfate Follow up: PCP 3-5 days Pulmonology within 1-2 weeks Recommend follow up imaging with PCP/Pulmonology for further evaluation / follow up of right upper lobe opacity to ensure resolution. Cannot differentiate with certainty between pneumonia and malignancy. Physical Exam: GEN: Alert, oriented, NAD HEENT: Normal conjunctiva, sclera anicteric CV: sinus tachycardia, no edema Pulm: Nonlabored respirations on room air, clear bilaterally, +nonproductive cough ABD: Soft, nontender, nondistended Integumentary: no rash Neuro: Normal speech, normal affect Vital Signs/Physical Exam: Temp Pulse Resp BP Pulse Ox 97.4 F 89 17 120/54 L 97 02/02/23 04:00 02/02/23 04:00 02/02/23 04:00 02/02/23 04:00 02/02/23 04:00 Laboratory Data at Discharge: WBC 6.70 thou/uL (4.3-10.9) 02/02/23 02:56 Hgb 8.8 g/dL (12.0-15.0) L 02/02/23 02:56 Hct 26.5 % (36.0-45.0) L 02/02/23 02:56 Plt Count 184 thou/uL (152-406) 02/02/23 02:56 Sodium 137 mEq/L (136-145) 02/02/23 02:56 Potassium 3.7 mEq/L (3.5-5.1) 02/02/23 02:56 BUN 4 mg/dL (7-18) L 02/02/23 02:56 Creatinine 0.38 mg/dL (0.55-1.02) L 02/02/23 02:56 Glucose 99 mg/dL (74-106) 02/02/23 02:56 Total Bilirubin 0.2 mg/dL (0.2-1.0) 02/02/23 02:56 AST 144 U/L (15-37) H 02/02/23 02:56 ALT 145 U/L (13-56) H 02/02/23 02:56 Alkaline Phosphatase 75 U/L (45-117) 02/02/23 02:56 Lipase 45 U/L (13-75) 01/30/23 17:25 Home Medications: Ferrous Sulfate [Feosol] 325 mg PO DAILY 30 Days #30 tab 02/02/23 levoFLOXacin [Levaquin] 750 mg PO DAILY 7 Days #7 tab 02/02/23 New Medications: Ferrous Sulfate [Feosol] 325 mg PO DAILY 30 Days #30 tab levoFLOXacin [Levaquin] 750 mg PO DAILY 7 Days #7 tab Physician Discharge Instructions: Patient presented with fever, weakness, malaise, shortness of breath. CT chest revealed a 3.1cm opacity right upper lobe and she was noted to be strep+ in the ED. She was treated for strep pharyngitis and presumed pneumonia with IV roce phin and zithromax. She was also noted to have mild elevation of her LFTs and developed a rash the morning after admission. On further discussion, the patient's symptoms and lab/imaging findings were more consistent with mono. Patient was tested and found to be positive on mono screen. Patient may be a strep carrier. ID and Pulmonology were consulted. Antibiotics were changed to levaquin, which patient tolerated well. Throughout hospitalization, her heart rate and blood pressure improved and became stable. Fever improved, and she was without leukocytosis. LFTs were mildly elevated, she did not have any RUQ abdominal pain. U/S noted multiple gallstones without any evidence of obstruction or gallbladder wall thickening. Suspected to be secondary to mono and the amount of tylenol she was taking. Advised to minimize tylenol intake and get repeat bloodwork in the next 1-2 weeks to follow up on resolution of these elevated LFTs. She was also noted to be anemic. Workup consistent with severe iron deficiency. She reported history of iron deficiency, has not been on iron supplementation consistently lately. Advised daily iron supplementation. Follow up with PCP for repeat iron studies in ~2-3 months. New medications: Levaquin Ferrous sulfate Follow up: PCP 3-5 days Pulmonology within 1-2 weeks Recommend follow up imaging with PCP/Pulmonology for further evaluation / follow up of right upper lobe opacity to ensure resolution. Time spent managing pt's care (in minutes): 45
[2023-02-02] MEDS ORDERED: SUMATRIPTAN SUCCI 50 MG TAB PO PRN (07:50)
[2023-02-02 08:43] VITALS: BP 116/69; TEMP 98.2
[2023-02-02] MEDS ORDERED: POTASSIUM CL SA 10 MEQ TAB PO ONE (09:00)
== END 2023-02-02 09:24 | disposition home or self-care (01) | DRG 194 ==
LOC: ER 16:50 → ERHOLD 20:35 → 2ND 01-31 00:15 → OBSVTOIN 02-01 14:19
PROVIDERS: ADMIT Hospitalist; ATTEND Hospitalist
DX: J18.9 Pneumonia, unspecified organism (principal); E44.0 Moderate protein-calorie malnutrition; E87.1 Hypo-osmolality and hyponatremia; E86.0 Dehydration; E87.6 Hypokalemia; J02.0 Streptococcal pharyngitis; D50.9 Iron deficiency anemia, unspecified; B27.90 Infectious mononucleosis, unspecified without complication; T39.1X5A Adverse effect of 4-Aminophenol derivatives, initial encounter; F17.290 Nicotine dependence, other tobacco product, uncomplicated; R94.5 Abnormal results of liver function studies; Z68.29 Body mass index [BMI] 29.0-29.9, adult; Z20.822 Contact with and (suspected) exposure to COVID-19
CPT/HCPCS: 36415; 71045; 71260; 76705; 80053; 81001; 81025; 82728; 83540; 83605; 83690; 84145; 84466; 85025; 86140; 86308; 87040; 87081; 87635; 87804; 99285; J0696; J1650; J3480; J7030; J7040; J7050; Q9967